=== PATIENT | female | born 1960 | race Caucasian/White ===

== ENCOUNTER → 2020-04-16 10:08 | Outpatient (BNVA) | payer OTHER, MEDICAID, SELFPAY | PROVIDERS: PCP Internal Medicine; Referring Provider Internal Medicine; Visit Provider Surgery | DX: D05.12 Intraductal carcinoma in situ of left breast (principal); Z92.3 Personal history of irradiation | CPT/HCPCS: 99213 ==

== ENCOUNTER → 2020-07-23 09:33 | Outpatient (BNVA) | payer OTHER, SELFPAY | PROVIDERS: PCP Internal Medicine; Visit Provider Advanced Practice Midwife | DX: Z76.89 Persons encountering health services in other specified circumstances (principal) ==

== ENCOUNTER 2020-08-11 12:28 | Outpatient (REF) | payer OTHER, SELFPAY ==
--- NOTE | 2020-08-11 12:36 | MM_ITS ---
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 COMPARISON: Mammography: July 12, 2019 and studies dating back to May 16, 2011 TECHNIQUE: Digital mammography is performed in craniocaudal and mediolateral oblique views along with computer-aided detection (CAD). Additional spot magnification views of the left breast in craniocaudal and 90 degree mediolateral views performed. FINDINGS: The breasts are heterogeneously dense, which may obscure small masses (ACR BI-RADS breast composition Category c). Architecture distortion related to surgery in the upper outer aspect of the left breast is seen. There are also noted to be some residual calcifications within the surgical bed. No new abnormal dominant mass is appreciated. Grouping of calcifications upper outer aspect of the right breast are stable. Results are discussed with the patient at time of visit. Dr. Cintron spoken to about the above findings. MM/MM diagnostic mammo BI IMPRESSION: Stable right breast calcifications. Some residual calcifications within the left breast surgical bed upper outer aspect. ASSESSMENT: BI-RADS 0: Incomplete -surgical consultation for residual calcifications in surgical bed. RECOMMENDATION: Surgical consultation
== END 2020-08-11 12:29 | disposition home or self-care (01) ==
LOC: HO.MAMMO 12:28
PROVIDERS: PCP Internal Medicine; Visit Provider Surgery
DX: D05.12 Intraductal carcinoma in situ of left breast (principal); Z92.3 Personal history of irradiation
CPT/HCPCS: 77066

== ENCOUNTER → 2020-10-20 14:32 | Outpatient (BNVA) | payer OTHER, SELFPAY | PROVIDERS: PCP Internal Medicine; Visit Provider Surgery | DX: D05.12 Intraductal carcinoma in situ of left breast (principal) | CPT/HCPCS: 99212 ==

== ENCOUNTER 2021-01-08 12:49 | Outpatient (REF) | payer OTHER, SELFPAY ==
--- NOTE | ~2021-01-08 | MM_ITS ---
EXAMINATION: MM DIAGNOSTIC DIGITAL BREAST TOMOSYNTHESIS, LEFT CLINICAL INFORMATION: Intraductal carcinoma left breast, status post lumpectomy COMPARISON: Mammography: August 11, 2020 and studies dating back to September 13, 2013 TECHNIQUE: Digital breast tomosynthesis is performed in both the craniocaudal and mediolateral oblique views along with computer-aided detection (CAD). Synthesized 2D images are generated from the tomosynthesis. Additional spot magnification views of the left breast in craniocaudal and 90 degree mediolateral views performed. FINDINGS: The breasts are heterogeneously dense, which may obscure small masses (ACR BI-RADS breast composition Category c). There are no new significant masses, abnormal calcifications, or other abnormalities. There is postsurgical scarring noted within the upper outer aspect of the left breast as well as stable calcifications. Results are provided to the patient at time of visit by the technologist. MM/MM tomosynthesis diagnostic LT IMPRESSION: There are no significant changes from prior study. ASSESSMENT: BI-RADS 2: Benign RECOMMENDATION: Diagnostic bilateral mammography in 6 months. This patient's information was entered into a reminder system with a target due date for their next mammogram.
== END 2021-01-08 12:50 | disposition home or self-care (01) ==
LOC: HO.MAMMO 12:49
PROVIDERS: PCP Internal Medicine; Visit Provider Internal Medicine
DX: R92.1 Mammographic calcification found on diagnostic imaging of breast (principal)
CPT/HCPCS: 77061; 77065

== ENCOUNTER → 2021-02-23 14:27 | Outpatient (BNVA) | payer OTHER, SELFPAY | PROVIDERS: PCP Internal Medicine; Visit Provider Surgery | DX: D05.12 Intraductal carcinoma in situ of left breast (principal) | CPT/HCPCS: 99212 ==

== ENCOUNTER 2021-06-05 18:48 | Emergency (ER) | payer OTHER, SELFPAY ==
--- NOTE | ~2021-06-05 | CT_ITS ---
EXAMINATION: CT ABDOMEN AND PELVIS WITH CONTRAST CLINICAL INFORMATION: Upper back and flank pain. COMPARISON: Pelvic ultrasound dated 11/08/2012. TECHNIQUE: Multidetector volumetric images were obtained from the superior aspect of the liver through the pubic symphysis following administration 85 mL of Omnipaque 350 intravenous contrast. Sagittal and coronal reformatted images were obtained on the technologist's workstation. Oral Contrast: No. This CT examination was performed using dose optimization techniques as appropriate, variously including the following: *Automated exposure control. *Adjustment of mA and/or kV according to patient size (this includes techniques or standardized protocols for targeted exams where dose is matched to indication/reason for exam; i.e. extremities or head). *Use of iterative reconstruction technique. DLP: 518 mGy-cm FINDINGS: LUNG BASES: The visualized lung bases are unremarkable. LIVER, GALLBLADDER, AND BILIARY TREE: The liver is normal in size, shape, and attenuation. No focal hepatic lesion or biliary ductal dilatation is present. The gallbladder is unremarkable with no evidence of radiopaque gallstones, gallbladder wall thickening, or obvious pericholecystic inflammatory changes. PANCREAS: Unremarkable. SPLEEN: Unremarkable. ADRENAL GLANDS: Unremarkable. KIDNEYS AND URETERS: The kidneys are normal in size and attenuation. Foci of cortical thinning within the left upper pole, consistent with scarring. Left midpole 0.1 cm nonobstructing renal stone. No additional renal or ureteral stone. No hydronephrosis or hydroureter. BLADDER: Nondistended and unremarkable. GASTROINTESTINAL TRACT: Sigmoid diverticulosis without evidence of acute diverticulitis. No bowel wall thickening or associated inflammatory change. No small or large bowel obstruction. Unremarkable appendix. PERITONEAL CAVITY: No intra-abdominal free air or free fluid. No intra-abdominal mass or organized fluid collection/abscess formation. ABDOMINAL WALL: No significant hernia is appreciated. LYMPH NODES: Normal. VASCULAR: No abdominal aortic dilatation or dissection. Atherosclerotic calcifications. PELVIC VISCERA: The uterus and adnexa are unremarkable. OSSEOUS STRUCTURES: Unremarkable. CT/CT abdomen pelvis w con IMPRESSION: 1. Nonobstructing 0.1 cm left midpole renal stone. No additional renal or ureteral stone. No hydronephrosis or hydroureter. Cortical thinning within the upper pole of the left kidney, consistent with parenchymal scarring. Unremarkable urinary bladder. 2. Diverticulosis without evidence of acute diverticulitis. No small or large bowel obstruction. Unremarkable appendix. 3. No intra-abdominal mass, lymphadenopathy, or ascites. Fleischner guidelines were followed.
[2021-06-05 19:07] VITALS: BP 150/91; PULSE 93; RESP 15; TEMP 36.7; O2SAT 93; BMI 26.5
--- NOTE | 2021-06-05 20:32 | ED.BACK ---
HPI - Back Pain/Injury General Chief Complaint: Back Pain/Injury Stated Complaint: back/shoulder pain Source: patient Mode of arrival: ambulatory Limitations: no limitations History of Present Illness HPI Narrative: 60-year-old female presents with 2 days of left upper back pain radiating down to her flank. States that she is in a 9/10 pain, pain is worse taking deep breath and when sitting up. She cannot lay on her left side. Did take some Tylenol and Motrin with poor effect. She was able to eat over the past days however today the pain was so severe that she could not tolerate any movement. She does have a rash to the left flank that she noted late last night and early this morning. Pertinent past history: cancer Onset (ago): day(s) (2) Timing: constant Severity: severe Pain scale (0-10): 9 Similar Symptoms Previously: No Quality: burning and stabbing Location: left flank and left upper back Radiation: none Exacerbating factors: movement and deep breaths Associated symptoms: fatigue Treatments prior to arrival: NSAIDS and acetaminophen Work related injury: No Related Data Home Medications Medication Instructions Recorded Confirmed atorvastatin 20 mg tablet 20 mg PO DAILY 04/16/20 10/20/20 clonazepam 0.5 mg tablet 0.5 mg PO DAILY PRN 04/16/20 10/20/20 naproxen 500 mg tablet 500 mg PO BID 04/16/20 10/20/20 sertraline 100 mg tablet 150 mg PO DAILY 04/16/20 10/20/20 trazodone 100 mg tablet [id number] mg PO BEDTIME PRN 04/16/20 10/20/20 Previous Rx's Medication Instructions Recorded ondansetron HCl 4 mg tablet 4 mg PO Q8H PRN #14 tab 06/05/21 (Zofran) oxycodone 5 mg tablet 5 mg PO Q6H PRN #14 tab 06/05/21 tamsulosin 0.4 mg capsule (Flomax) 0.4 mg PO DAILY #14 cap 06/05/21 valacyclovir 1 gram tablet 1,000 mg PO TID 7 Days #21 tab 06/05/21 Allergies Allergy/AdvReac Type Severity Reaction Status Date / Time codeine [CODEINE] Allergy Unknown NAUSEA & Verified 06/05/21 19:13 VOMITING erythromycin base Allergy Unknown NAUSEA & Verified 06/05/21 19:13 [ERYTHROMYCIN BASE] VOMITING Sulfa (Sulfonamide Allergy Unknown HIVES Verified 06/05/21 19:13 Antibiotics) [SULFA (SULFONAMIDE ANTIBIOTICS)] Codeine Allergy Unknown Unknown Uncoded 06/05/21 19:13 Sulfa Allergy Unknown Unknown Uncoded 06/05/21 19:13 sulfa Allergy Unknown hives Uncoded 06/05/21 19:13 codeine AdvReac Unknown nausea/vomi Uncoded 06/05/21 19:13 ting erythromycin AdvReac Unknown nausea/vomi Uncoded 06/05/21 19:13 ting Review of Systems Review of Systems: Constitutional: No Weight loss, No Fever, No Chills, ENT/Mouth: No Hearing loss, No Ear Pain, No Nasal Congestion, No Sinus Pain, No Hoarseness, No sore throat, No Rhinorrhea, No Swallowing Difficulty Cardiovascular: No Chest Pain, No SOB Respiratory: No Cough, No Dyspnea Gastrointestinal: No Nausea, No Vomiting, No Diarrhea, No abdominal Pain, No Hematochezia, No Melena Genitourinary: No Dysuria, No Urinary Frequency, No Hematuria, No Urinary Incontinence, Musculoskeletal: positive back pain Skin: No Skin Lesions, positive rash Neuro: No Weakness, No Numbness, No Paresthesias, no loss of bowel or bladder incontinence, no saddle anesthesia Yes all other systems are reviewed and are negative PMFSH Past Medical History Attestation statement: The following information was validated with the patient. Source: old records reviewed Medical History COPD (chronic obstructive pulmonary disease) Depression Ductal carcinoma in situ (DCIS) of left breast Hypercholesterolemia Surgical History History of lumpectomy of left breast Status post laparoscopic Shireen fundoplication (~08/2009) Family History Family History Mother History of breast cancer Brother Sweat gland carcinoma Social History Social History Alcohol intake: current Advance Directives: No Patient : No Physical Exam Vital Signs: Vital Signs: Last Vital Signs Temp 98.1 F 06/05/21 23:08 Pulse 79 06/05/21 23:08 Resp 18 11/27/21 23:08 BP 149/68 H 06/05/21 23:08 Pulse Ox 97 06/05/21 23:08 Body Mass Index 26.5 Appearance: Alert. Oriented X3. Moderate distress. Head: Normal external exam. Normocephalic. Atraumatic. No Pinto signs noted. No raccoon eyes noted Eyes: PERRLA. EOMI. Conjunctiva and sclera normal. Eyelids normal. ENT: TM's Normal. Pharynx normal. Uvula midline. Moist mucous membranes. No trismus noted. No drooling noted. No muffled voice noted. Neck: Normal inspection. Neck supple. No adenopathy. No meningeal signs. No neck mass noted. No vertebral tenderness or step-offs. CVS: Normal heart rate and rhythm. Heart sound normal. No murmurs noted. Pulses equal to all extremities. Respiratory: No respiratory distress. Pain increases on inspiration. Breath sounds normal. No wheezes/rales/rhonchi noted. Chest tender to left side. No accessory muscle usage noted or decreased air movement noted. Abdomen: Soft and nontender. Bowel sounds normal in all 4 quadrants. No distention noted. No organomegaly noted. No visible injury noted. Back: No CVA tenderness. Full range of motion noted. Skin: Skin warm and dry. Normal skin color. Normal skin turgor. Vesicular left-sided rash from spine to abdomen, does not cross the midline consistent with shingles. Extremities: No lower extremity edema. Extremities exhibit normal range of motion. Extremities nontender. Neuro: cranial nerves 2-12 intact, no focal neural deficits, strength 5/5 to all extremities, No motor deficit. No sensory deficit. Course Course Course Narrative: 60-year-old female presents with left-sided upper back and flank pain. Does have a vesicular rash that does not cross the midline from spine to the abdomen. Rash is consistent with shingles. Patient does have a history of breast cancer, will order labs and imaging. Rule out cholecystitis, ACS, acute abdomen, pyelo. Will treat for shingles with Grace close air, pain management morphine and will give L of fluid as patient was unable to tolerate p.o. fluids today. CT scan indicative of nonobstructing renal stone. Plan of care is to discharge home with Flomax. For shingles will give they will seek of air and oxycodone. Patient understands that she must follow-up with primary care physician and Urology as needed. Patient verbalized understanding of and agrees to plan of care discharge home. MDM - Back Pain/Injury MDM Narrative Medical decision making narrative: Cholecystitis, shingles Differential Diagnosis Differential diagnosis: Likely renal colic, pyelonephritis and AAA Medical Records Attestation: I reviewed the patient's medical records. Lab Data Attestation: I reviewed the patient's lab results. Result diagrams: 06/05/21 21:08 06/05/21 21:40 Labs: Lab Results 06/05/21 06/05/21 06/05/21 Range/Units 21:04 21:08 21:40 WBC 4.3 L (4.8-10.8) X10*3/uL RBC 3.58 L (4.20-5.50) X10*6/uL Hgb 12.2 (12.0-16.0) g/dl Hct 35.0 L (37.0-47.0) % MCV 97.8 (80.0-98.0) fL MCH 34.1 H (27.0-33.0) pg MCHC 34.9 (31.0-35.0) g/dl RDW 12.0 (11.0-16.0) % Plt Count 87 L (160-400) X10*3/uL MPV 9.1 L (9.4-12.3) fL Immature Gran % (Auto) 0.7 H (0.0-0.4) % Neut % (Auto) 77.9 H (45-73) % Lymph % (Auto) 8.8 L (20-40) % [place] % (Auto) 10.7 (2-11) % Eos % (Auto) 1.4 (0-4) % Baso % (Auto) 0.5 (0-2) % Lymph # (Auto) 0.4 L (1.2-4.9) X10*3/uL [place] # (Auto) 0.5 (0.1-1.2) X10*3/uL Eos # (Auto) 0.1 (0.0-0.4) X10*3/uL Baso # (Auto) 0.0 (0.0-0.2) X10*3/uL Abs Immat Gran (auto) 0.03 (0.00-0.03) X10*3/uL Absolute Neuts (auto) 3.4 (2.0-8.3) x10*3/uL Absolute Nucleated RBC 0.000 (0.0-0.012) X10*3/uL Nucleated RBC % (auto) 0.0 (0.0-0.2) /100WBC Sodium 138 (135-145) mmol/L Potassium 4.0 (3.3-5.1) mmol/L Chloride 105 (96-108) mmol/L Carbon Dioxide 25 (22-29) mmol/L Anion Gap 12 (12-20) BUN 9 (9-16) mg/dL Creatinine 0.89 (0.5-1.4) mg/dL Estim Creat Clear Calc 61.3 Estimated GFR > 60 Random Glucose 123 H (60-115) mg/dL Calcium 9.0 (8.4-10.2) mg/dL Total Bilirubin 0.8 (0.0-1.0) mg/dL Direct Bilirubin 0.4 (0.0-0.5) mg/dL AST 64 H (5-31) U/L ALT 64 H (0-31) U/L Alkaline Phosphatase 63 (39-117) U/L Total Protein 7.1 (6.5-8.0) g/dL Albumin 4.0 (3.5-5.0) g/dL Lipase 24 (8-78) U/L Urine Color YELLOW Urine Appearance CLEAR Urine pH 6.5 (5.0-8.0) Ur Specific Arnold 1.010 (1.005-1.025) Urine Protein NEG (NEG-TRACE) MG/DL Urine Glucose (UA) NEG (NEG) MG/DL Urine Ketones NEG (NEG) MG/DL Urine Blood TRACE (NEG) Urine Nitrite NEG (NEG) Ur Leukocyte Esterase NEG (NEG) Urine RBC 0 (0) /HPF Urine WBC 0 (0-4) /HPF Ur Squamous Epith Cells NONE /LPF Urine Bacteria NONE /LPF Imaging Data CT abdomen pelvis: Attestation: I personally reviewed and interpreted this imaging study as follows: Radiologist's impression: EXAMINATION: CT ABDOMEN AND PELVIS WITH CONTRAST? CLINICAL INFORMATION: Upper back and flank pain.? COMPARISON: Pelvic ultrasound dated 11/08/2012.? TECHNIQUE: Multidetector volumetric images were obtained from the superior aspect of the liver through the pubic symphysis following administration 85 mL of Omnipaque 350 intravenous contrast. Sagittal and coronal reformatted images were obtained on the technologist's workstation.? Oral Contrast: No. This CT examination was performed using dose optimization techniques as appropriate, variously including the following: *Automated exposure control. *Adjustment of mA and/or kV according to patient size (this includes techniques or standardized protocols for targeted exams where dose is matched to indication/reason for exam; i.e. extremities or head). *Use of iterative reconstruction technique. DLP: 518 mGy-cm FINDINGS: LUNG BASES: The visualized lung bases are unremarkable.? LIVER, GALLBLADDER, AND BILIARY TREE: The liver is normal in size, shape, and attenuation. No focal hepatic lesion or biliary ductal dilatation is present. The gallbladder is unremarkable with no evidence of radiopaque gallstones, gallbladder wall thickening, or obvious pericholecystic inflammatory changes.? PANCREAS: Unremarkable.? SPLEEN: Unremarkable.? ADRENAL GLANDS: Unremarkable.? KIDNEYS AND URETERS: The kidneys are normal in size and attenuation. Foci of cortical thinning within the left upper pole, consistent with scarring. Left midpole 0.1 cm nonobstructing renal stone. No additional renal or ureteral stone. No hydronephrosis or hydroureter. ? BLADDER: Nondistended and unremarkable.? GASTROINTESTINAL TRACT: Sigmoid diverticulosis without evidence of acute diverticulitis. No bowel wall thickening or associated inflammatory change. No small or large bowel obstruction. Unremarkable appendix. PERITONEAL CAVITY: No intra-abdominal free air or free fluid. No intra-abdominal mass or organized fluid collection/abscess formation. ABDOMINAL WALL: No significant hernia is appreciated.? LYMPH NODES: Normal. VASCULAR: No abdominal aortic dilatation or dissection. Atherosclerotic calcifications. PELVIC VISCERA: The uterus and adnexa are unremarkable.? OSSEOUS STRUCTURES: Unremarkable.? CT/CT abdomen pelvis w con IMPRESSION: 1. Nonobstructing 0.1 cm left midpole renal stone. No additional renal or ureteral stone. No hydronephrosis or hydroureter. Cortical thinning within the upper pole of the left kidney, consistent with parenchymal scarring. Unremarkable urinary bladder. ? 2. Diverticulosis without evidence of acute diverticulitis. No small or large bowel obstruction. Unremarkable appendix. ? 3. No intra-abdominal mass, lymphadenopathy, or ascites.? ? Fleischner guidelines were followed. ECG Data Attestation: I personally reviewed and interpreted this ECG as follows: ECG interpretation date: 06/05/21 ECG interpretation time: 20:46 Prior ECG tracings: not available for review Interpretation: Vent. Rate : 072 BPM ? ? Atrial Rate : 072 BPM ?? P-R Int : 128 ms? QRS Dur : 066 ms ? ? QT Int : 392 ms ? ? ? P-R-T Axes : 013 007 035 degrees ?? QTc Int : 429 ms ? Normal sinus rhythm Normal ECG No previous ECGs available Discharge Plan Discharge Clinical Impression: Shingles, Kidney stone Patient Disposition: Home, Self-Care Instructions: Kidney Stones (ED), Shingles (ED) Additional Instructions: You were evaluated for left upper back and flank pain. Your CT scan of abdomen and pelvis indicates a nonobstructing kidney stone. I prescribed Flomax. Please take this medication in the morning for the next 14 days. You may consider following up with Nephrology and primary care physician Physical exam indicates a rash consistent with shingles. Please take valacyclovir 1000 mg 3 times a day. Please do not come into contact with any person or planning to become until rash resolves. I prescribed oxycodone for pain management. This medication is a narcotic and has high risk for addiction and abuse. Do not drive or operate machinery while taking this medication this medication is also constipating. Please drink plenty of fluids and consider taking MiraLax and or Colace as needed for stool softening. Thank you for choosing this emergency department for evaluation. Please follow-up with primary care physician as needed. Return to the emergency department for any new, concerning, or worsening symptoms. Prescriptions: New valacyclovir 1 gram tablet 1,000 mg PO TID 7 Days Qty: 21 RF: 0 oxycodone 5 mg tablet 5 mg PO Q6H PRN (Reason: pain) Qty: 14 RF: 0 ondansetron HCl [Zofran] 4 mg tablet 4 mg PO Q8H PRN (Reason: nausea and vomiting) Qty: 14 RF: 0 tamsulosin [Flomax] 0.4 mg capsule 0.4 mg PO DAILY Qty: 14 RF: 0 No Action trazodone 100 mg tablet [id number] mg PO BEDTIME PRNRF: 0 sertraline 100 mg tablet 150 mg PO DAILY RF: 0 atorvastatin 20 mg tablet 20 mg PO DAILY RF: 0 clonazepam 0.5 mg tablet 0.5 mg PO DAILY PRNRF: 0 naproxen 500 mg tablet 500 mg PO BID RF: 0 Referrals: Pierre Mcfarlane MD [Physician] - 2 days (Nonobstructing renal stone) Stand Alone Forms: Work/School Release Interventions: ED Discharge Assessment Last Done: 06/05/21 23:59 Discharge Date/Time: 06/05/21 23:59
--- NOTE | 2021-06-05 20:46 | ECG_ITS ---
Test Reason : BACK PAIN Blood Pressure : / mmHG Vent. Rate : 072 BPM Atrial Rate : 072 BPM P-R Int : 128 ms QRS Dur : 066 ms QT Int : 392 ms P-R-T Axes : 013 007 035 degrees QTc Int : 429 ms Normal sinus rhythm Normal ECG No previous ECGs available Referred By: Lorenza Fuller Electronically Signed By:KENNETH MURCIA MD
[2021-06-05] MEDS: 0.9 % Sodium Chloride 1,000 ML 999 ML IVCONT (21:11)
[2021-06-05] MEDS: Morphine Sulfate 4 MG/ML CARTRIDGE IVPUSH (21:11)
[2021-06-05] MEDS: ondansetron HCL 4 MG/2 ML VIAL IVPUSH (21:11)
[2021-06-05 21:12] LABS: MANUAL DIFF FLAG NO
[2021-06-05 21:19] LABS: Basophils Percent Auto 0.5 % (0-2); Eosinophils Absolute Auto 0.1 X10*3/uL (0.0-0.4); Eosinophils Percent Auto 1.4 % (0-4); Hemoglobin 12.2 g/dl (12.0-16.0); Imm Gran Abs Auto 0.03 X10*3/uL (0.00-0.03); Imm Gran Pct Auto 0.7 % (0.0-0.4); Lymphocytes Absolute Auto 0.4 X10*3/uL (1.2-4.9); Lymphocytes Percent Auto 8.8 % (20-40); Mean Corpuscular HGB Conc 34.9 g/dl (31.0-35.0); Mean Corpuscular Hemoglobin 34.1 pg (27.0-33.0); Mean Corpuscular Volume 97.8 fL (80.0-98.0); Mean Platelet Volume 9.1 fL (9.4-12.3); Monocytes Absolute Auto 0.5 X10*3/uL (0.1-1.2); Monocytes Percent Auto 10.7 % (2-11); Neutrophils Absolute Auto 3.4 x10*3/uL (2.0-8.3); Neutrophils Percent Auto 77.9 % (45-73); Platelet Count 87 X10*3/uL (160-400); Red Blood Count 3.58 X10*6/uL (4.20-5.50); White Blood Count 4.3 X10*3/uL (4.8-10.8)
[2021-06-05 21:19] LABS: Appearance Urine CLEAR; Color Urine YELLOW; Glucose Urine UA NEG (NEG); Leukocyte Esterase Urine NEG (NEG); Nitrite Urine NEG (NEG); PH 6.5 (5.0-8.0); UACC Culture Trigger NO; Urine Blood TRACE (NEG); Urine Ketones NEG (NEG); Urine Protein NEG (NEG-TRACE)
[2021-06-05 21:32] LABS: RBC Urine 0 /HPF (0); WBC Urine 0 /HPF (0-4)
[2021-06-05 22:08] LABS: Alanine Aminotransferase 64 U/L (0-31); Alkaline Phosphatase 63 U/L (39-117); Anion Gap 12 (12-20); Aspartate Amino Transferase 64 U/L (5-31); Bilirubin Direct 0.4 mg/dL (0.0-0.5); Bilirubin Total 0.8 mg/dL (0.0-1.0); Blood Urea Nitrogen 9 mg/dL (9-16); Carbon Dioxide 25 mmol/L (22-29); Chloride 105 mmol/L (96-108); Creatinine Clr Calc Pharmacy 61.3; Estimated Glomerular Filt Rate > 60; Glucose Random 123 mg/dL (60-115); Lipase 24 U/L (8-78); Sodium 138 mmol/L (135-145); Total Protein 7.1 g/dL (6.5-8.0)
[2021-06-05] MEDS: iohexoL 350 MG/ML 100 ML INFUS..BTL IV (22:41)
[2021-06-05 23:08] VITALS: BP 149/68; PULSE 79; RESP 18; TEMP 36.7; O2SAT 97
[2021-06-05] MEDS: Tamsulosin HCL 0.4 MG CAPSULE PO (23:54)
[2021-06-05] MEDS: oxyCODONE HCl Immed Release 5 MG TABLET 10 MG PO (23:54)
== END 2021-06-05 23:59 | disposition home or self-care (01) ==
PROVIDERS: Nurse Practitioner Family; Emergency Provider Internal Medicine; PCP Internal Medicine
DX: N20.0 Calculus of kidney (principal); B02.9 Zoster without complications; Z85.3 Personal history of malignant neoplasm of breast
CPT/HCPCS: 36415; 74177; 80048; 80076; 81001; 83690; 85025; 93005; 96361; 96374; 96375; 99284; J2270; J2405; Q9967

== ENCOUNTER → 2021-08-26 14:07 | Outpatient (BNVA) | payer OTHER, SELFPAY | PROVIDERS: PCP Internal Medicine; Referring Provider Internal Medicine; Visit Provider Surgery | DX: Z86.000 Personal history of in-situ neoplasm of breast (principal); K42.9 Umbilical hernia without obstruction or gangrene; Z92.3 Personal history of irradiation | CPT/HCPCS: 99212 ==

== ENCOUNTER 2021-09-08 12:25 | Outpatient (REF) | payer OTHER, SELFPAY ==
--- NOTE | ~2021-09-08 | MM_ITS ---
EXAMINATION: MM DIAGNOSTIC DIGITAL BREAST TOMOSYNTHESIS, BILATERAL CLINICAL INFORMATION: Left DCIS, lumpectomy 07/12/2019. Due for yearly. COMPARISON: Mammography: 01/08/2021, 08/11/2020, 07/12/2019, 06/21/2019, 06/11/2019, 05/01/2018 TECHNIQUE: Digital breast tomosynthesis is performed in both the craniocaudal and mediolateral oblique views along with computer-aided detection (CAD). Synthesized 2D images are generated from the tomosynthesis. Additional magnification left CC and magnification left ML views are obtained. FINDINGS: The breasts are heterogeneously dense, which may obscure small masses (ACR BI-RADS breast composition Category c). There is a fibronodular parenchymal pattern similar to prior exams. There is no interval mass or developing density or interval architectural abnormality. Postsurgical changes again noted upper outer left breast with mild scarring and reduced breast size. Scattered bilateral isolated and some small grouped calcifications are similar to prior studies. There is a biopsy clip marker again seen right breast central 1:00 position. There are no significant changes. Results are discussed with the patient at time of visit. MM/MM tomosynthesis diagnostic BI IMPRESSION: No mammographic evidence of malignancy. ASSESSMENT: BI-RADS 2: Benign RECOMMENDATION: Annual bilateral mammography. This patient's information was entered into a reminder system with a target due date for their next mammogram.
== END 2021-09-08 12:26 | disposition home or self-care (01) ==
LOC: HO.MAMMO 12:25
PROVIDERS: PCP Internal Medicine; Visit Provider Internal Medicine
DX: R92.1 Mammographic calcification found on diagnostic imaging of breast (principal)
CPT/HCPCS: 77062; 77066

== ENCOUNTER 2021-10-12 10:47 | Outpatient (REF) | payer OTHER, SELFPAY ==
[2021-10-14 17:01] LABS: HPV mRNA E6/E7 rflx Not Detected (Not Detected)
== END 2021-10-12 10:48 | disposition home or self-care (01) ==
LOC: HO.LAB 10:47
PROVIDERS: PCP Internal Medicine; Visit Provider Advanced Practice Midwife
DX: Z01.419 Encounter for gynecological examination (general) (routine) without abnormal findings (principal)
CPT/HCPCS: 87624; 88142

== ENCOUNTER → 2022-03-17 10:57 | Outpatient (BNVA) | payer OTHER, SELFPAY | PROVIDERS: PCP Internal Medicine; Visit Provider Surgery | DX: Z86.000 Personal history of in-situ neoplasm of breast (principal); Z92.3 Personal history of irradiation | CPT/HCPCS: 99212 ==

== ENCOUNTER 2022-11-14 15:08 | Outpatient (REF) | payer OTHER, SELFPAY ==
--- NOTE | ~2022-11-14 | MM_ITS ---
EXAMINATION: MM DIAGNOSTIC DIGITAL BREAST TOMOSYNTHESIS, BILATERAL CLINICAL INFORMATION: Left DCIS status post lumpectomy 07/12/2019 and reexcision 10/09/2019. RT completed at [facility] 01/16/2020. Due for yearly. COMPARISON: Multiple prior exams including most recent, 09/08/2021. TECHNIQUE: Digital breast tomosynthesis is performed in both the craniocaudal and mediolateral oblique views along with computer-aided detection (CAD). Synthesized 2D images are generated from the tomosynthesis. Additional magnification left CC and magnification left ML views are obtained. FINDINGS: The breasts are heterogeneously dense, which may obscure small masses (ACR BI-RADS breast composition Category c). Parenchymal pattern is similar to prior studies and there is no developing density or interval mass or architectural abnormality or abnormal calcifications. There is a biopsy clip marker central anterior 1:00 right breast. Scattered right breast calcifications are stable. Left breast has post therapy changes with minor scarring. The left breast calcifications are similar in number and distribution to prior diagnostic exams. The bilateral axilla and skin contours are unremarkable. No significant changes. Results are provided to the patient at time of visit by the technologist. MM/MM tomosynthesis diagnostic BI IMPRESSION: -No mammographic evidence of malignancy. -Post therapy changes left breast. ASSESSMENT: BI-RADS 2: Benign RECOMMENDATION: Routine annual mammography screening. This patient's information was entered into a reminder system with a target due date for their next mammogram.
== END 2022-11-14 15:09 | disposition home or self-care (01) ==
LOC: HO.MAMMO 15:08
PROVIDERS: Visit Provider Internal Medicine
DX: R92.1 Mammographic calcification found on diagnostic imaging of breast (principal)
CPT/HCPCS: 77062; 77066

== ENCOUNTER 2023-03-16 09:50 | Outpatient (AMB) | payer OTHER, SELFPAY ==
--- NOTE | 2023-03-16 10:02 | MHC.OFFVIS ---
Intake Vital Signs 03/16/23 10:15 Height 5 ft 2 in Weight 150 lb BMI 27.4 BP 145/69 H Blood Pressure Location Rt brachial Position Sitting Pulse 82 Intake Visit Reasons: yearly breast exam Intake Note: Patient here for yrly breast exam. Reports no changes in medical hx or medications. Denies pain, itch on breasts. C/o umbilical hernia. More noticeable when laying down. Denies pain. 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 Accompanied by: Spouse Allergies codeine [CODEINE] Allergy (Unknown, Verified 03/16/23 10:17) NAUSEA & VOMITING erythromycin base [ERYTHROMYCIN BASE] Allergy (Unknown, Verified 03/16/23 10:17) NAUSEA & VOMITING Sulfa (Sulfonamide Antibiotics) [SULFA (SULFONAMIDE ANTIBIOTICS)] Allergy (Unknown, Verified 03/16/23 10:17) HIVES Medication List - Last Reviewed 03/16/23 by PAULA Santana atorvastatin 20 mg PO DAILY naproxen 500 mg PO BID sertraline 150 mg PO DAILY trazodone [id number] mg PO BEDTIME PRN HPI HPI Comments History of Present Illness Details 62-year-old female patient returning for a yearly breast examination.? She was previously treated by Dr. 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 She underwent a needle localized lumpectomy and sentinel node biopsy of the left side on 07/12/2019.? Pathology revealed ductal carcinoma in-situ, ER/OR negative with positive margins.? She underwent a wider excision on 10/09/2019 which revealed no residual tumor.? She subsequently underwent radiation therapy at [facility].? Her most recent mammogram of 11/14/2022 revealed no mammographic evidence of malignancy (BI-RADS 2).? Yearly mammogram is recommended.? She denies any new breast symptoms and generally feels well.? She does complain of an umbilical hernia. [facility] History History of radiation therapy Ductal carcinoma in situ (DCIS) of left breast Depression Hypercholesterolemia COPD (chronic obstructive pulmonary disease) Surgical History History of lumpectomy of left breast Status post laparoscopic Shireen fundoplication (~08/2009) Family History Mother History of breast cancer Brother Sweat gland carcinoma Social History Alcohol intake: current Patient Tobacco Use Status: Never used Tobacco Review of Systems Const All systems reviewed & are unremarkable except as noted in HPI and below Physical Exam Const General: comfortable, no acute distress and alert Neck Neck: Yes normal visual inspection, Yes trachea midline and Yes supple Lymphatic: no lymphadenopathy noted Chest Other: Left breast with a well-healed incision in the 3 o'clock position which is clean, dry, and intact. No palpable masses appreciated in the entire left breast. Axillary lymph nodes are not palpable. Right breast with no skin change, no nipple discharge, no palpable mass, no enlarged lymph nodes. Chest/axillae images: 1. Resp Effort & Inspection: normal respiratory effort Auscultation: clear to auscultation bilaterally GI Other: Diastasis recti noted. Small umbilical hernia noted just above the umbilicus, easily reducible with light pressure. Nontender to palpation. Inspection: Yes normal to inspection Skin Other: normal color, warm and dry Assessment & Plan Assessment & Plan (1) Ductal carcinoma in situ (DCIS) of left breast: Code(s): D05.12 - Intraductal carcinoma in situ of left breast Plan 62-year-old female patient presenting for follow-up breast examination after undergoing a left breast lumpectomy with needle localization for ductal carcinoma in situ. She underwent radiation therapy and tolerated this well. Her most recent mammogram of the left breast of 11/14/2022 revealed no mammographic evidence of malignancy (BI-RADS 2). Examination today revealed no new suspicious findings in either breast with no evidence of recurrence disease. I recommended follow-up examination in 1 year. She declined follow-up but agreed to yearly examination by her primary care physician. She should follow up as needed. Coding Level of Care Code Est Pt Level 3 (50493) Diagnoses Ductal carcinoma in situ (DCIS) of left breast D05.12
[2023-03-16 10:15] VITALS: BP 145/69; PULSE 82; BMI 27.4
== END 2023-03-16 10:28 | disposition home or self-care (01) ==
PROVIDERS: PCP Internal Medicine; Visit Provider Surgery
DX: D05.12 Intraductal carcinoma in situ of left breast (principal)
CPT/HCPCS: 99213

== ENCOUNTER → 2023-03-16 09:50 | Outpatient (BNVA) | payer OTHER, SELFPAY | PROVIDERS: Visit Provider Surgery | DX: D05.12 Intraductal carcinoma in situ of left breast (principal); Z17.1 Estrogen receptor negative status [ER-]; Z92.3 Personal history of irradiation | CPT/HCPCS: 99212 ==

== ENCOUNTER 2023-11-20 15:20 | Outpatient (REF) | payer OTHER, SELFPAY ==
--- NOTE | ~2023-11-20 | MM_ITS ---
EXAMINATION: MM SCREENING DIGITAL BREAST TOMOSYNTHESIS, BILATERAL CLINICAL INFORMATION: Screening. Asymptomatic. The patient is status post left breast surgery for DCIS in 2020. COMPARISON: Mammography: This study is compared with prior exams dating back to 2019. TECHNIQUE: Digital breast tomosynthesis is performed in both the craniocaudal and mediolateral oblique views along with computer-aided detection (CAD). Synthesized 2D images are generated from the tomosynthesis. FINDINGS: The breasts are heterogeneously dense, which may obscure small masses (ACR BI-RADS breast composition Category c). In the upper outer quadrant of the right breast, there are grouped calcifications which warrant additional mammographic imaging with magnification. There is a tissue marker in the right breast from prior benign percutaneous biopsy. In the left breast, there are no significant masses, abnormal calcifications, or other abnormalities. Postsurgical changes in the superior aspect of the left breast from prior surgery for DCIS. There are bilateral benign calcifications MM/MM tomosynthesis screening BI IMPRESSION: Calcifications in the upper outer quadrant of the right breast warrant additional mammographic imaging magnification. No mammographic signs of the left breast. Postsurgical changes left breast ASSESSMENT: BI-RADS BI-RADS 0 - Incomplete: Needs additional Imaging. RECOMMENDATION: Additional views of the right breast. Radiology department staff will contact the patient for additional imaging. Additional Imaging required This examination should not preclude the clinical evaluation of a suspicious palpable abnormality. This patient's information was entered into a reminder system with a target due date for their next mammogram.
== END 2023-11-20 15:21 | disposition home or self-care (01) ==
LOC: HO.MAMMO 15:20
PROVIDERS: PCP Internal Medicine; Visit Provider Internal Medicine
DX: Z12.31 Encounter for screening mammogram for malignant neoplasm of breast (principal)
CPT/HCPCS: 77063; 77067

== ENCOUNTER → 2023-11-20 15:30 | Outpatient (BNV) | payer OTHER, SELFPAY | PROVIDERS: PCP Internal Medicine; Visit Provider Radiology Diagnostic Radiology | DX: Z12.31 Encounter for screening mammogram for malignant neoplasm of breast (principal) | CPT/HCPCS: 77063; 77067 ==

== ENCOUNTER 2024-02-20 08:41 | Outpatient (REF) | payer OTHER, SELFPAY ==
--- NOTE | ~2024-02-20 | XR_ITS ---
EXAMINATION: XR lumbar spine 2-3V CLINICAL INFORMATION: LOW BACK PAIN COMPARISON: None TECHNIQUE: 3 views of the lumbar spine FINDINGS: 5 nonrib-bearing lumbar-type vertebral bodies. Vertebral body heights are maintained. Rightward scoliosis of the lumbar spine. Moderate multilevel degenerative disc disease with loss of disc space height, facet arthropathy and disc osteophyte complexes. This is worst at L3/L4. Atherosclerotic calcifications of the abdominal aorta. XR/XR lumbar spine 2-3V IMPRESSION: Moderate spondylosis of the lumbar spine, as above detailed. Electronically signed by: Johana Costa MD 03/19/2024 06:33 PM EDT
== END 2024-02-20 08:42 | disposition home or self-care (01) ==
LOC: HO.HMGCX 08:41
PROVIDERS: PCP Internal Medicine; Visit Provider Internal Medicine
DX: M54.50 Low back pain, unspecified (principal)
CPT/HCPCS: 72100

== ENCOUNTER 2024-02-27 13:53 | Outpatient (REF) | payer OTHER, SELFPAY ==
--- NOTE | ~2024-02-27 | US_ITS ---
EXAMINATION: MM DIAGNOSTIC DIGITAL BREAST TOMOSYNTHESIS, RIGHT US BREAST LIMITED, RIGHT MAMMOGRAPHY: CLINICAL INFORMATION: Callback from screening for right breast calcifications upper outer quadrant for further characterization. 63-year-old female, history of left DCIS status post lumpectomy 07/12/2019, and reexcision 10/09/2019. COMPARISON: Mammography: Screening examination 11/20/2023, and prior exams 11/14/2022, dating back to 2013. TECHNIQUE: Digital breast tomosynthesis is performed in the following views: 3-D Spot compression right CC and ML views, as well as 2-D spot magnification right CC x2, and ML views. Computer-aided diagnosis was used for this study. This was followed by targeted right breast ultrasound. FINDINGS: The breasts are heterogeneously dense, which may obscure small masses (ACR BI-RADS breast composition Category c). Diagnostic spot magnification views demonstrate scattered right breast calcifications in the upper quadrant, the majority being stable and unchanged when compared with 2019 magnification views. A small focus of slightly more pleomorphic calcifications has increased in the approximately 10:00 axis, and immediately posterior to this is a focus of architectural distortion which was evaluated with spot compression views. After spot compression views, this focus of architectural distortion persisted in both the CC and MLO views, and is suspicious. This will be evaluated with ultrasound. ULTRASOUND: CLINICAL INFORMATION: Evaluate focus of architectural distortion right breast 10:00 axis posterior one third. There are associated mildly pleomorphic calcifications immediately anterior to this. COMPARISON: No relevant prior. TECHNIQUE: Targeted sonographic evaluation right breast was performed using a high frequency linear transducer. Attention was given to the upper outer quadrant of the right breast, in the region of architectural distortion. Selected archived documentation. FINDINGS: RIGHT BREAST: In the 10:00 axis of the right breast, there is an irregular hypoechoic mass with indistinct margins, taller than wide, 10:00 axis right breast, 8 cm from the nipple, with posterior acoustic shadowing, scant internal color Doppler flow, a surrounding echogenic halo, measuring an estimated 0.6 x 0.6 x 0.6 cm. This correlates well with the architectural focus of distortion in the upper outer quadrant on mammography, and is a suspicious abnormality. Ultrasound-guided biopsy is recommended for further characterization. Scanning of the right axilla demonstrates no evidence of abnormal or pathologic lymph nodes. No additional suspicious findings present in the upper outer quadrant of the right breast.
--- NOTE | ~2024-02-27 | MM_ITS ---
EXAMINATION: MM DIAGNOSTIC DIGITAL BREAST TOMOSYNTHESIS, RIGHT US BREAST LIMITED, RIGHT MAMMOGRAPHY: CLINICAL INFORMATION: Callback from screening for right breast calcifications upper outer quadrant for further characterization. 63-year-old female, history of left DCIS status post lumpectomy 07/12/2019, and reexcision 10/09/2019. COMPARISON: Mammography: Screening examination 11/20/2023, and prior exams 11/14/2022, dating back to 2013. TECHNIQUE: Digital breast tomosynthesis is performed in the following views: 3-D Spot compression right CC and ML views, as well as 2-D spot magnification right CC x2, and ML views. Computer-aided diagnosis was used for this study. This was followed by targeted right breast ultrasound. FINDINGS: The breasts are heterogeneously dense, which may obscure small masses (ACR BI-RADS breast composition Category c). Diagnostic spot magnification views demonstrate scattered right breast calcifications in the upper quadrant, the majority being stable and unchanged when compared with 2019 magnification views. A small focus of slightly more pleomorphic calcifications has increased in the approximately 10:00 axis, and immediately posterior to this is a focus of architectural distortion which was evaluated with spot compression views. After spot compression views, this focus of architectural distortion persisted in both the CC and MLO views, and is suspicious. This will be evaluated with ultrasound. ULTRASOUND: CLINICAL INFORMATION: Evaluate focus of architectural distortion right breast 10:00 axis posterior one third. There are associated mildly pleomorphic calcifications immediately anterior to this. COMPARISON: No relevant prior. TECHNIQUE: Targeted sonographic evaluation right breast was performed using a high frequency linear transducer. Attention was given to the upper outer quadrant of the right breast, in the region of architectural distortion. Selected archived documentation. FINDINGS: RIGHT BREAST: In the 10:00 axis of the right breast, there is an irregular hypoechoic mass with indistinct margins, taller than wide, 10:00 axis right breast, 8 cm from the nipple, with posterior acoustic shadowing, scant internal color Doppler flow, a surrounding echogenic halo, measuring an estimated 0.6 x 0.6 x 0.6 cm. This correlates well with the architectural focus of distortion in the upper outer quadrant on mammography, and is a suspicious abnormality. Ultrasound-guided biopsy is recommended for further characterization. Scanning of the right axilla demonstrates no evidence of abnormal or pathologic lymph nodes. No additional suspicious findings present in the upper outer quadrant of the right breast. MM/MM added views RT IMPRESSION: 1. Suspicious hypoechoic indistinct mass as described in the right breast 10:00 axis, 8 cm from the nipple, correlating with an area of architectural distortion on mammography in the same region. Ultrasound-guided biopsy recommended for further characterization. 2. An area of mildly pleomorphic calcifications is present immediately anteroinferior to the area of architectural distortion, not previously present, is also somewhat suspicious. 3. Several groups of stable calcifications in the upper outer and upper inner right breast as well. Findings and recommendations were discussed with the patient by the technologist in detail. OVERALL ASSESSMENT: Mammography: BI-RADS 4 - Suspicious finding Ultrasound: BI-RADS 4 - Suspicious finding RECOMMENDATION: Biopsy recommended Electronically signed by: Trell Coulter MD 03/01/2024 11:45 AM EDT
== END 2024-02-27 13:54 | disposition home or self-care (01) ==
LOC: HO.MAMMO 13:53
PROVIDERS: PCP Internal Medicine; Visit Provider Internal Medicine
DX: R92.1 Mammographic calcification found on diagnostic imaging of breast (principal)
CPT/HCPCS: 77065

== ENCOUNTER → 2024-02-27 14:00 | Outpatient (BNV) | payer OTHER, SELFPAY | PROVIDERS: PCP Internal Medicine; Visit Provider Radiology Diagnostic Radiology | DX: R92.1 Mammographic calcification found on diagnostic imaging of breast (principal) | CPT/HCPCS: 77061; 77065 ==

== ENCOUNTER 2024-03-01 09:45 | Outpatient (REF) | payer OTHER, SELFPAY ==
--- NOTE | ~2024-03-01 | US_ITS ---
EXAMINATION: MM DIAGNOSTIC DIGITAL BREAST TOMOSYNTHESIS, RIGHT US BREAST LIMITED, RIGHT MAMMOGRAPHY: CLINICAL INFORMATION: Callback from screening for right breast calcifications upper outer quadrant for further characterization. 63-year-old female, history of left DCIS status post lumpectomy 07/12/2019, and reexcision 10/09/2019. COMPARISON: Mammography: Screening examination 11/20/2023, and prior exams 11/14/2022, dating back to 2013. TECHNIQUE: Digital breast tomosynthesis is performed in the following views: 3-D Spot compression right CC and ML views, as well as 2-D spot magnification right CC x2, and ML views. Computer-aided diagnosis was used for this study. This was followed by targeted right breast ultrasound. FINDINGS: The breasts are heterogeneously dense, which may obscure small masses (ACR BI-RADS breast composition Category c). Diagnostic spot magnification views demonstrate scattered right breast calcifications in the upper quadrant, the majority being stable and unchanged when compared with 2019 magnification views. A small focus of slightly more pleomorphic calcifications has increased in the approximately 10:00 axis, and immediately posterior to this is a focus of architectural distortion which was evaluated with spot compression views. After spot compression views, this focus of architectural distortion persisted in both the CC and MLO views, and is suspicious. This will be evaluated with ultrasound. ULTRASOUND: CLINICAL INFORMATION: Evaluate focus of architectural distortion right breast 10:00 axis posterior one third. There are associated mildly pleomorphic calcifications immediately anterior to this. COMPARISON: No relevant prior. TECHNIQUE: Targeted sonographic evaluation right breast was performed using a high frequency linear transducer. Attention was given to the upper outer quadrant of the right breast, in the region of architectural distortion. Selected archived documentation. FINDINGS: RIGHT BREAST: In the 10:00 axis of the right breast, there is an irregular hypoechoic mass with indistinct margins, taller than wide, 10:00 axis right breast, 8 cm from the nipple, with posterior acoustic shadowing, scant internal color Doppler flow, a surrounding echogenic halo, measuring an estimated 0.6 x 0.6 x 0.6 cm. This correlates well with the architectural focus of distortion in the upper outer quadrant on mammography, and is a suspicious abnormality. Ultrasound-guided biopsy is recommended for further characterization. Scanning of the right axilla demonstrates no evidence of abnormal or pathologic lymph nodes. No additional suspicious findings present in the upper outer quadrant of the right breast. US/US breast RT limited IMPRESSION: 1. Suspicious hypoechoic indistinct mass as described in the right breast 10:00 axis, 8 cm from the nipple, correlating with an area of architectural distortion on mammography in the same region. Ultrasound-guided biopsy recommended for further characterization. 2. An area of mildly pleomorphic calcifications is present immediately anteroinferior to the area of architectural distortion, not previously present, is also somewhat suspicious. 3. Several groups of stable calcifications in the upper outer and upper inner right breast as well. Findings and recommendations were discussed with the patient by the technologist in detail. OVERALL ASSESSMENT: Mammography: BI-RADS 4 - Suspicious finding Ultrasound: BI-RADS 4 - Suspicious finding RECOMMENDATION: Biopsy recommended Electronically signed by: Trell Coulter MD 03/01/2024 11:45 AM EDT
== END 2024-03-01 09:46 | disposition home or self-care (01) ==
LOC: HO.MAMMO 09:45
PROVIDERS: PCP Internal Medicine; Visit Provider Internal Medicine
DX: R92.1 Mammographic calcification found on diagnostic imaging of breast (principal)
CPT/HCPCS: 76642

== ENCOUNTER → 2024-03-01 09:45 | Outpatient (BNV) | payer OTHER, SELFPAY | PROVIDERS: PCP Internal Medicine; Visit Provider Radiology Diagnostic Radiology | DX: R92.1 Mammographic calcification found on diagnostic imaging of breast (principal) | CPT/HCPCS: 76642; 77061; 77065 ==

== ENCOUNTER 2024-03-08 11:28 | Outpatient (REF) | payer OTHER, SELFPAY ==
--- NOTE | ~2024-03-08 | MM_ITS ---
EXAMINATION: BONE DENSITOMETRY CLINICAL INDICATION: Menopause. COMPARISON: This is the patient's baseline examination. TECHNIQUE: Using a StepOne DXA System (software version: 13.1) manufactured by [employer], dual-energy x-ray absorptiometry was performed of the lumbar spine and left hip. The images are of good technical quality. Summary results are attached. FINDINGS: LEFT FEMUR, NECK: BMD 0.83 g/cm2, Z-score -0.2, T-score -1.4, osteopenia. LEFT FEMUR, TOTAL: BMD 1.038 g/cm2, Z-score 1.2, T-score 0.2, normal. AP SPINE L1-L4: BMD 1.373 g/cm2, Z-score 2.9, T-score 1.6, normal. IDENTIFIED RISK FACTORS: Menopause, history of fracture (adult), glucocorticoids (chronic). HISTORY OF FRACTURE: Other. MEDICATIONS: ERT/SERMS. MM/XR DEXA axial skeleton IMPRESSION: 1. DIAGNOSIS: Osteopenia based on the lowest T-score value of -1.4 in the femoral neck applying World Health Organization criteria. 2. 10-YEAR FRACTURE RISK PREDICTION, FRAX: Not performed in this patient on estrogen or bone building treatments. 3. Treatment Recommendations: NOF guidelines recommend consideration for treatment in postmenopausal women and men age 50 and older presenting with the following: -A hip or vertebral (clinical or morphometric) fracture. -T-score less than or equal to -2.5 at the femoral neck or spine after appropriate evaluation to exclude secondary causes. -Low bone mass at the hip or spine and a 10-year fracture probability by FRAX of greater than or equal to 3% for hip fracture or greater than or equal to 20% for major osteoporotic fracture based on the [place] adapted WHO algorithm. 4. Other Recommendations: All treatment decisions require clinical judgment and consideration of individual patient factors, including patient preferences, comorbidities, previous drug use, risk factors not captured in the FRAX model (e.g. frailty, falls, vitamin D deficiency, increased bone turnover, interval significant decline in bone density) and possible under or overestimation of fracture risk by FRAX. Additional medical evaluation for secondary cause of low bone mineral density may be appropriate. FUTURE SCAN RECOMMENDATION: People with diagnosed cases of osteoporosis or at high risk for fracture should have regular bone mineral density tests. For patients eligible for Medicare, routine testing is allowed once every 2 years. The testing frequency can be increased to one year for patients who have rapidly progressing disease, those who are receiving or discontinuing medical therapy to restore bone mass, or have additional risk factors. Electronically signed by: Mika Grullon MD 03/12/2024 11:19 AM EDT
== END 2024-03-08 11:29 | disposition home or self-care (01) ==
LOC: HO.MAMMO 11:28
PROVIDERS: PCP Internal Medicine; Visit Provider Internal Medicine
DX: Z13.820 Encounter for screening for osteoporosis (principal); Z78.0 Asymptomatic menopausal state
CPT/HCPCS: 77080

== ENCOUNTER 2024-03-12 09:47 | Outpatient (AMB) | payer OTHER, SELFPAY ==
--- NOTE | 2024-03-12 09:49 | A.OFFVIS_ITS ---
Vital Signs 03/12/24 09:56 Height 5 ft 2 in Weight 154 lb 2 oz BMI 28.2 BP 154/70 H Pulse 75 Intake Visit Reasons: Discuss US Guided Biopsy 10 oclock mass, rt breast Intake Note: Patient is seen in office for consult on possible ultrasound guided biopsy, following right breast 10 o'clock mass. 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 Accompanied by: Family/Other Allergies codeine [CODEINE] Allergy (Unknown, Verified 03/12/24 09:56) NAUSEA & VOMITING erythromycin base [ERYTHROMYCIN BASE] Allergy (Unknown, Verified 03/12/24 09:56) NAUSEA & VOMITING Sulfa (Sulfonamide Antibiotics) [SULFA (SULFONAMIDE ANTIBIOTICS)] Allergy (Unknown, Verified 03/12/24 09:56) HIVES Medication List - Last Reconciled 03/12/24 by Bernardino Cintron MD atorvastatin 20 mg PO DAILY naproxen 500 mg PO BID sertraline 150 mg PO DAILY trazodone [id number] mg PO BEDTIME PRN HPI Comments Details: 63-year-old female patient returning for a yearly breast examination and evaluation of a recent mammogram and ultrasound which revealed a new suspicious finding..? She was previously treated by Dr. 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 She underwent a needle localized lumpectomy and sentinel node biopsy of the left side on 07/12/2019.? Pathology revealed ductal carcinoma in-situ, ER/FL negative with positive margins.? She underwent a wider excision on 10/09/2019 which revealed no residual tumor.? She subsequently underwent radiation [facility] at [facility].? Her most recent mammogram of 02/26 with follow-up images of 03/01/2024 including ultrasound revealed a suspicious density in the right breast at the 10 o'clock position approximately 8 cm from the nipple. This was felt to be suspicious for malignancy an ultrasound-guided core biopsy is recommended. She presents today to discuss further management. She denies any new breast symptoms and generally feels well. [facility] Medical History History of radiation therapy Ductal carcinoma in situ (DCIS) of left breast Depression Hypercholesterolemia COPD (chronic obstructive pulmonary disease) Surgical History History of lumpectomy of left breast Status post laparoscopic Shireen fundoplication (~08/2009) Family History Mother History of breast cancer Brother Sweat gland carcinoma Social History Alcohol intake: current Patient Tobacco Use Status: Never used Tobacco Review of Systems Const All systems reviewed & are unremarkable except as noted in HPI and below Physical Exam Const General: comfortable, no acute distress and alert Neck Neck: Yes normal visual inspection, Yes trachea midline and Yes supple Lymphatic: no lymphadenopathy noted Chest Other: Left breast with a well-healed incision in the 3 o'clock position which is clean, dry, and intact. No palpable masses appreciated in the entire left breast. Axillary lymph nodes are not palpable. Right breast with no skin change, no nipple discharge, no palpable mass, no enlarged lymph nodes. Resp Effort & Inspection: normal respiratory effort Auscultation: clear to auscultation bilaterally GI Other: Diastasis recti noted. Small umbilical hernia noted just above the umbilicus, easily reducible with light pressure. Nontender to palpation. Inspection: Yes normal to inspection Skin Other: normal color, warm and dry Assessment & Plan Assessment & Plan (1) Abnormal ultrasound of breast: Code(s): R92.8 - Other abnormal and inconclusive findings on diagnostic imaging of breast Category: Medical Plan 63-year-old female patient with a prior history of left breast DCIS now presenting with a new finding on the right breast at the 10 o'clock position, 8 cm from the nipple. Examination reveals no significant change in either breast with no new suspicious findings. I recommended an ultrasound-guided core biopsy of the suspicious lesion of the right breast. After discussion on regarding the procedure, she is agreeable to proceed. [facility] earliest convenience. She will follow-up proximally 1 week following the procedure to review the pathology results. She is welcome to call sooner for any new concerns or questions. Orders: Orders US breast ndl core biopsy RT Today R92.8 - Other abnormal and inconclusive findings on diagnostic imaging of breast Coding Level of Care Code Est Pt Level 4 (95648) Diagnoses Abnormal ultrasound of breast R92.8
[2024-03-12 09:56] VITALS: BP 154/70; PULSE 75; BMI 28.2
== END 2024-03-12 10:15 | disposition home or self-care (01) ==
PROVIDERS: PCP Internal Medicine; Visit Provider Surgery
DX: R92.8 Other abnormal and inconclusive findings on diagnostic imaging of breast (principal)
CPT/HCPCS: 99214

== ENCOUNTER → 2024-03-12 09:47 | Outpatient (BNVA) | payer OTHER, SELFPAY | PROVIDERS: PCP Internal Medicine; Visit Provider Surgery | DX: R92.8 Other abnormal and inconclusive findings on diagnostic imaging of breast (principal) | CPT/HCPCS: 99212 ==

== ENCOUNTER 2024-03-13 08:00 | Outpatient (REF) | payer OTHER, SELFPAY ==
--- NOTE | ~2024-03-13 | MM_ITS ---
PROCEDURE: US GUIDED BREAST BIOPSY, RIGHT CLINICAL INFORMATION: Right breast 10:00 axis, 8 cm from the nipple, parenchymal distortion/mass on ultrasound measuring approximately 6 x 6 x 6 mm, recommended for ultrasound-guided biopsy. COMPARISON: 03/01/2024 ultrasound right breast. 02/27/2024 diagnostic ultrasound right breast. 11/20/2023 screening mammogram bilateral breasts. PROCEDURAL DETAILS: The details of the procedure, as well as the risks, benefits, and alternatives to the procedure were explained to the patient in detail and all of her questions were answered, after which written informed consent was obtained. Site and side were confirmed. Prior to the procedure, sonography revealed the 6 x 6 x 6 mm hypoechoic irregular mass in the 10:00 axis right breast, 8 cm from the nipple.. A time-out was performed, the lesion intended for biopsy was targeted, and the skin of the overlying right breast was then marked, prepped and draped in the usual sterile fashion. Using sonographic guidance, sterile technique, and 1% lidocaine without epinephrine for local anesthesia, multiple core biopsies were obtained through the targeted area with a 14G spring loaded [employer] [place] core biopsy device. There was real-time confirmation of appropriate needle passage. Sampling was documented. At the completion of tissue sampling, a single butterfly shaped metallic clip was deposited at the biopsy site. There was no evidence of immediate complication. SPECIMEN: 4 well formed core samples were obtained. DIGITAL POST-PROCEDURE MAMMOGRAPHY: Breast density: The tissue is heterogeneously dense which may obscure small masses. BI-RADS version 5, category C. There are no new mammographic findings demonstrated. The postprocedure 2-view direct digital mammogram reveals satisfactory and accurate positioning of the biopsy clip. No hematoma present. The patient tolerated the procedure well and, after assuring adequate hemostasis, was discharged in good condition after reviewing postbiopsy breast care instructions. Final pathology results are pending. MM/MM tomosynthesis diagnostic RT IMPRESSION: 1. No immediate complication from ultrasound-guided percutaneous biopsy right breast 10:00 hypoechoic mass measuring 6 mm, correlating with mammographic distortion. 2. Ultrasound was used to localize and guide marker clip placement. 3. The 2-view direct digital postprocedure mammogram reveals accurate positioning of the biopsy clip. 4. Final pathology results are pending. A separate report with final recommendations will be issued once these results are made available. Electronically signed by: Trell Coulter MD 03/13/2024 01:07 PM EDT RP
[2024-03-13] MEDS: Sodium Bicarbonate 8.4% 50 MEQ/50 ML VIAL SUBCUT (09:25)
[2024-03-13] MEDS: Lidocaine HCl 1 % 20 ML VIAL 5 ML SUBCUT (09:26)
== END 2024-03-13 08:01 | disposition home or self-care (01) ==
LOC: HO.MAMMO 08:00
PROVIDERS: PCP Internal Medicine; Visit Provider Surgery
DX: C50.411 Malignant neoplasm of upper-outer quadrant of right female breast (principal)
CPT/HCPCS: 19083; 77061; 77065; 88305; 88360; A4648; C1894

== ENCOUNTER → 2024-03-13 08:03 | Outpatient (BNV) | payer OTHER, SELFPAY | PROVIDERS: PCP Internal Medicine; Visit Provider Radiology Diagnostic Radiology | DX: R92.8 Other abnormal and inconclusive findings on diagnostic imaging of breast (principal) | CPT/HCPCS: 19083; 77065 ==

== ENCOUNTER 2024-03-19 12:56 | Outpatient (AMB) | payer OTHER, SELFPAY ==
--- NOTE | 2024-03-19 13:20 | MHC.OFFVIS ---
Vital Signs 03/19/24 13:22 Height 5 ft 2 in Weight 152 lb 1.903 oz BMI 27.8 Pulse 72 Intake Visit Reasons: RESULTS us bx rt br Intake Note: Patient is seen in office for ultrasound guided biopsy results, following right breast 10 o'clock mass. 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 Accompanied by: Spouse Allergies codeine [CODEINE] Allergy (Unknown, Verified 03/19/24 13:21) NAUSEA & VOMITING erythromycin base [ERYTHROMYCIN BASE] Allergy (Unknown, Verified 03/19/24 13:21) NAUSEA & VOMITING Sulfa (Sulfonamide Antibiotics) [SULFA (SULFONAMIDE ANTIBIOTICS)] Allergy (Unknown, Verified 03/19/24 13:21) HIVES Medication List - Last Reconciled 03/19/24 by Bernardino Cintron MD atorvastatin 20 mg PO DAILY naproxen 500 mg PO BID sertraline 150 mg PO DAILY trazodone [id number] mg PO BEDTIME PRN HPI Comments Details: 63-year-old female patient returning following a recent ultrasound-guided core biopsy of the right breast. She is a previous patient of Dr. 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 Pathology revealed ductal carcinoma in-situ, ER/IL negative with positive margins. She subsequently underwent wider excision on 10/09/2019 which revealed no residual tumor. She underwent radiation therapy at [facility]. Her most recent mammogram of 02/27/2024 with follow-up images of 03/01/2024 including an ultrasound revealed a density in the right breast at the 10 o'clock position approximately 8 cm from the nipple. This was felt to be suspicious for malignancy an ultrasound-guided core biopsy was recommended. Subsequent pathology revealed invasive ductal carcinoma, grade 1, ER positive, IL negative, HER2 negative, Ki-67 low. She presents today to review the pathology results and discuss treatment options. Tolerated the biopsy well and denies any ongoing breast symptoms. [facility] Medical History History of radiation therapy Ductal carcinoma in situ (DCIS) of left breast Depression Hypercholesterolemia COPD (chronic obstructive pulmonary disease) Surgical History History of lumpectomy of left breast Status post laparoscopic Shireen fundoplication (~08/2009) Family History Mother History of breast cancer Brother Sweat gland carcinoma Social History Alcohol intake: current Patient Tobacco Use Status: Never used Tobacco Review of Systems Const All systems reviewed & are unremarkable except as noted in HPI and below Physical Exam Vital Signs: Last Vital Signs Pulse 72 03/19/24 13:22 BMI result Body Mass Index 27.8 Const General: comfortable, no acute distress and alert Neck Neck: Yes normal visual inspection, Yes trachea midline and Yes supple Lymphatic: no lymphadenopathy noted Chest Other: Left breast with a well-healed incision in the 3 o'clock position which is clean, dry, and intact. No palpable masses appreciated in the entire left breast. Axillary lymph nodes are not palpable. Right breast with no skin change, no nipple discharge, no palpable mass, no enlarged lymph nodes. Resp Effort & Inspection: normal respiratory effort Auscultation: clear to auscultation bilaterally GI Other: Diastasis recti noted. Small umbilical hernia noted just above the umbilicus, easily reducible with light pressure. Nontender to palpation. Inspection: Yes normal to inspection Skin Other: normal color, warm and dry Assessment & Plan Assessment & Plan (1) Invasive ductal carcinoma of right breast: Code(s): C50.911 - Malignant neoplasm of unspecified site of right female breast Category: Medical (2) Ductal carcinoma in situ (DCIS) of left breast: Code(s): D05.12 - Intraductal carcinoma in situ of left breast Category: Medical Plan 63-year-old female patient status post ultrasound-guided core biopsy of the right breast. Pathology revealed invasive ductal carcinoma grade 1, ER positive, IL negative, HER2 negative. We discussed the options for treatment and after review of the procedure, risks, and alternatives, she consents to a right breast lumpectomy with localizer, right axillary sentinel node biopsy. This will be scheduled as a short-stay surgery at her earliest convenience. Coding Level of Care Code Est Pt Level 4 (85157) Diagnoses Invasive ductal carcinoma of right breast C50.911 Ductal carcinoma in situ (DCIS) of left breast D05.12
[2024-03-19 13:22] VITALS: PULSE 72; BMI 27.8
== END 2024-03-19 13:56 | disposition home or self-care (01) ==
PROVIDERS: PCP Internal Medicine; Visit Provider Surgery
DX: C50.911 Malignant neoplasm of unspecified site of right female breast (principal); D05.12 Intraductal carcinoma in situ of left breast
CPT/HCPCS: 99214

== ENCOUNTER → 2024-03-19 12:56 | Outpatient (BNVA) | payer OTHER, SELFPAY | PROVIDERS: PCP Internal Medicine; Visit Provider Surgery | DX: C50.411 Malignant neoplasm of upper-outer quadrant of right female breast (principal); Z17.0 Estrogen receptor positive status [ER+] | CPT/HCPCS: 99212 ==

== ENCOUNTER 2024-03-25 07:58 | Outpatient (REF) | payer OTHER, SELFPAY ==
--- NOTE | ~2024-03-25 | MM_ITS ---
Single right breast specimen radiograph demonstrates the butterfly marker clip and the TAG localizer within the specimen. Findings were communicated to the operating room on 04/11/2024 at 12:40 PM Electronically signed by: Cordelia Miles DO 04/11/2024 12:53 PM EDT
--- NOTE | ~2024-03-25 | MM_ITS ---
EXAMINATION: MM MAMMOGRAM GUIDED RFID LOCALIZATION BREAST, RIGHT CLINICAL INFORMATION: 63-year-old female, new diagnosis grade 1 IDC 10:00 axis right breast, 8 cm from the nipple, with estimated size 7 x 6 x 6 mm. For RFID localization. Patient also has history of breast CA in mother at age 40s, and personal history of left breast DCIS status post consideration therapy in 07/12/2019, with reexcision 10/09/2019. COMPARISON: 03/13/2024 US guided biopsy, 03/01/2024 ultrasound, 02/27/2024 mammography, and 11/20/2023 mammography. TECHNIQUE NEEDLE LOC: Proper informed consent is obtained from the patient after discussion of the procedure, potential risks and complications, and alternatives including declining the procedure today. Patient was given an opportunity for questions. The patient appeared to understand. The patient consented to the procedure and signed the consent form. GUIDANCE: Digital mammography. APPROACH: Lateral Medial. TARGET: Butterfly shaped biopsy clip inside small mass 10:00 axis right breast 8 cm from the nipple. ANESTHESIA: carbonated lidocaine 1%: 7 mL. LOCALIZATION SYSTEM: [employer] LOCallizer Wire-Free Guidance System with 12g needle applicator. RADIOFREQUENCY TAG: ID # [id number] DERMATOTOMY: Single 1 mm skin-adrian dermatotomy performed. RF Tag ID confirmed with LOCalizer Guidance System prior to placement. The skin is prepped and local anesthesia administered. The needle is positioned and RFID tag deployed. Final images demonstrate the LOCalizer RF tag to reside immediately abutting the biopsy clip, residual calcifications, and small mass. This is ideally positioned. The patient tolerated the procedure well and had no immediate complications. Dressing placed and home instructions reviewed. MM/MM RF Tag device RT IMPRESSION: -Status post right breast RFID localization. RFID chip is in optimal placement. -Final CC and ML images are labeled appropriately for OR appearance. Electronically signed by: Trell Coulter MD 03/25/2024 09:39 AM EDT
[2024-03-25] MEDS: Sodium Bicarbonate 8.4% 50 MEQ/50 ML VIAL SUBCUT (09:05)
[2024-03-25] MEDS: Lidocaine HCl 1 % 20 ML VIAL SUBCUT (09:08)
== END 2024-03-25 07:59 | disposition home or self-care (01) ==
LOC: HO.MAMMO 07:58
PROVIDERS: PCP Internal Medicine; Visit Provider Surgery
DX: D05.12 Intraductal carcinoma in situ of left breast (principal); R92.8 Other abnormal and inconclusive findings on diagnostic imaging of breast
CPT/HCPCS: 19281; C1819

== ENCOUNTER → 2024-03-25 08:00 | Outpatient (BNV) | payer OTHER, SELFPAY | PROVIDERS: PCP Internal Medicine; Visit Provider Radiology Diagnostic Radiology | DX: C50.911 Malignant neoplasm of unspecified site of right female breast (principal) | CPT/HCPCS: 19281 ==

== ENCOUNTER 2024-04-11 08:05 | Day surgery (SDC) | payer OTHER, SELFPAY ==
[2024-04-02 08:21] VITALS: BMI 27.8
[2024-04-11] VITALS (7 sets, daily range): BP systolic 150–161; BP diastolic 65–84; PULSE 68–105; RESP 16–18; TEMP 36.2–36.6; O2SAT 93–98; BMI 28.9
--- NOTE | ~2024-04-11 | NM_ITS ---
EXAMINATION: NM LYMPHOSCINTIGRAPHY CLINICAL INFORMATION: 63-year-old female, new diagnosis grade 1 IDC 10:00 axis right breast, 8 cm from the nipple, with estimated size 7 x 6 x 6 mm. Patient also has personal history of left breast DCIS status post conservation therapy in 07/12/2019, with reexcision 10/09/2019. COMPARISON: Right breast RF ID localization 03/25/2024. 03/13/2024 US guided biopsy, 03/01/2024 ultrasound, 02/27/2024 mammography, and 11/20/2023 mammography. TECHNIQUE: Right breast lymphoscintigraphy injection was performed . Approximately 0.5 mCi of technetium 99m lymphoseek (technetium 99m Tilmanocept) and 0.8 mL of saline was divided into 4 aliquots of approximately 0.125 mCi, and injected in 4 quadrants around the right breast areola intradermally at 12:00, 3:00, 6:00, and 9:00. Immediate images and delayed images were obtained in anterior, ARIAS and right lateral views 30 minutes later. FINDINGS: There is strong isotope activity in four-quadrant around right breast areola following injection. At 30 minutes, there are at least 2 areas of isotope activity along the right lower and mid axilla suggestive of several lymph nodes. NM/NM sentinel node w imaging IMPRESSION: -At least 2 small lymph nodes seen in right lower and mid axilla on right breast lymphoscintigraphy. Thank you for the courtesy of your referral. Electronically signed by: Trell Coulter MD 04/11/2024 11:20 AM EDT
[2024-04-11] MEDS: Lactated Ringers 1,000 ML 100 ML IVCONT (08:54)
--- NOTE | 2024-04-11 10:32 | MHC.SHP ---
Pre-Procedural Eval Section A - 24 Hr Update-Section A only Date of Service: 04/11/24 The patient is an INPATIENT: No Changes since office visit: Yes Patient answered all questions; No Cold of Flu in the past 2 weeks, No New Medical Problems and No Changes in Medication The patient has been examined within 24 hours of the surgical procedure. The History & Physical has been completed within 30 days and I have reviewed it.: Yes Section B - Complete if H&P > 30 days Chief Complaint: Intraductal carcinoma in situ of L breast,neoplasm Allergies: Allergies Allergy/AdvReac Type Severity Reaction Status Date / Time codeine [CODEINE] Allergy Intermediate NAUSEA & Verified 04/02/24 08:05 VOMITING erythromycin base Allergy Intermediate NAUSEA & Verified 04/02/24 08:05 [ERYTHROMYCIN BASE] VOMITING Sulfa (Sulfonamide Allergy Intermediate HIVES Verified 04/02/24 08:05 Antibiotics) [SULFA (SULFONAMIDE ANTIBIOTICS)] Plan Diagnosis/Plan: Unchanged I have reviewed the history and physical and performed a pertinent physical examination on my patient. No changes have occurred unless specified. Time Spent With Patient Time: Total time managing care of this patient today ____ minutes.
--- NOTE | 2024-04-11 10:45 | PC.NURSE ---
patient back from sentinel node. resting comfortably.
--- NOTE | 2024-04-11 11:40 | HO.ANESPROP2 ---
Documented by User: Kaley Leach NP 04/10/24 12:28 HPI - Anesthesia Eval Consult details Narrative: 63yo F for Right Breast Lumpectomy w/LOCalizer, [place] Node Biopsy PMFSH Active Problems Active Problems: All Active Problems Invasive ductal carcinoma of right breast (Acute) Abnormal ultrasound of breast (Acute) Encounter for annual routine gynecological examination (Acute) Umbilical hernia (Acute) Well woman exam with routine gynecological exam (Acute) Ductal carcinoma in situ (DCIS) of left breast (Acute) Depression (Acute) Hypercholesterolemia (Acute) COPD (chronic obstructive pulmonary disease) (Acute) Past Medical History Medical History (Updated 04/02/24 @ 08:26 by Suzy Law RN) Hiatal hernia Arthritis Pre-diabetes History of radiation therapy Ductal carcinoma in situ (DCIS) of left breast Depression Hypercholesterolemia COPD (chronic obstructive pulmonary disease) Family History Family History Mother History of breast cancer Brother Sweat gland carcinoma Surgical History Surgical History (Updated 04/02/24 @ 08:26 by Suzy Law RN) Hx of abdominoplasty Hx of excision of mass H/O colonoscopy History of lumpectomy of left breast Status post laparoscopic Shireen fundoplication (~08/2009) Social History Social History Are you a primary healthcare representative to a significant other at home: No Alcohol intake: current Patient Tobacco Use Status: Former Tobacco user Tobacco use type: Cigarette Cigarette Packs Per Day: 1 Cigarettes Per Day: 20.0 Years Smoked: 25 Use of substances other than those prescribed or required for medical reasons: Yes Substance Use Type Other:: smokes marijuana daily Substance Use Frequency: Daily Have you been hit, kicked, punched, or otherwise hurt by someone within the past year? If so, by whom?: No Spiritual Healthcare Practices: none [facility] Practices: none Cultural Healthcare Practices: none Are you DNR?: No Advance Directives Information Provided: Yes (as above noted) Advance Directives on File: No Recently lost weight without trying: No Eating poorly because of decreased appetite: No Nutrition Risks: No Nutritional Risk Patient : No (N/A) FDLMP: N/A Poor oral hygiene: No Meds Allergies Allergy/AdvReac Type Severity Reaction Status Date / Time codeine [CODEINE] Allergy Intermediate NAUSEA & Verified 04/02/24 08:05 VOMITING erythromycin base Allergy Intermediate NAUSEA & Verified 04/02/24 08:05 [ERYTHROMYCIN BASE] VOMITING Sulfa (Sulfonamide Allergy Intermediate HIVES Verified 04/02/24 08:05 Antibiotics) [SULFA (SULFONAMIDE ANTIBIOTICS)] Home Medications ?Medication ?Instructions ?Recorded ?Confirmed ?Last Taken ?Type atorvastatin 20 mg tablet 20 mg PO BEDTIME 04/16/20 04/02/24 Unknown History naproxen 500 mg tablet 500 mg PO BID 04/16/20 04/02/24 04/03/24 History sertraline 100 mg tablet 150 mg PO QAM 04/16/20 04/02/24 04/11/24 History trazodone 100 mg tablet 200 mg PO BEDTIME PRN Insomnia 04/16/20 04/02/24 Unknown History Exam Height,Weight and Vital Signs: Height 5 ft 2 in Weight 68.946 kg Pertinent Lab Results Pertinent Lab Results: BMP and CBC 01/2024 ok except platelets low @ 93 Assessment and Plan Assessment Anesthesia Assessment: Chart Reviewed Documented by User: Janice Arciniega DO 04/11/24 12:28 PMFSH Past Medical History Medical History (Updated 04/02/24 @ 08:26 by Suzy Law RN) Hiatal hernia Arthritis Pre-diabetes History of radiation therapy Ductal carcinoma in situ (DCIS) of left breast Depression Hypercholesterolemia COPD (chronic obstructive pulmonary disease) Family History Family History Mother History of breast cancer Brother Sweat gland carcinoma Family history of problems with anesthesia: No Surgical History Surgical History (Updated 04/02/24 @ 08:26 by Suzy Law RN) Hx of abdominoplasty Hx of excision of mass H/O colonoscopy History of lumpectomy of left breast Status post laparoscopic Shireen fundoplication (~08/2009) History of Problems with Anesthesia: No Social History Social History Are you a primary healthcare representative to a significant other at home: No Alcohol intake: current Patient Tobacco Use Status: Former Tobacco user Tobacco use type: Cigarette Cigarette Packs Per Day: 1 Cigarettes Per Day: 20.0 Years Smoked: 25 Use of substances other than those prescribed or required for medical reasons: Yes Substance Use Type Other:: smokes marijuana daily Substance Use Frequency: Daily Have you been hit, kicked, punched, or otherwise hurt by someone within the past year? If so, by whom?: No Spiritual Healthcare Practices: none [facility] Practices: none Cultural Healthcare Practices: none Are you DNR?: No Advance Directives Information Provided: Yes (as above noted) Advance Directives on File: No Recently lost weight without trying: No Eating poorly because of decreased appetite: No Nutrition Risks: No Nutritional Risk Patient : No (N/A) FDLMP: N/A Poor oral hygiene: No Meds Allergies Allergy/AdvReac Type Severity Reaction Status Date / Time codeine [CODEINE] Allergy Intermediate NAUSEA & Verified 04/02/24 08:05 VOMITING erythromycin base Allergy Intermediate NAUSEA & Verified 04/02/24 08:05 [ERYTHROMYCIN BASE] VOMITING Sulfa (Sulfonamide Allergy Intermediate HIVES Verified 04/02/24 08:05 Antibiotics) [SULFA (SULFONAMIDE ANTIBIOTICS)] Home Medications ?Medication ?Instructions ?Recorded ?Confirmed ?Last Taken ?Type atorvastatin 20 mg tablet 20 mg PO BEDTIME 04/16/20 04/02/24 Unknown History naproxen 500 mg tablet 500 mg PO BID 04/16/20 04/02/24 04/03/24 History sertraline 100 mg tablet 150 mg PO QAM 04/16/20 04/02/24 04/11/24 History trazodone 100 mg tablet 200 mg PO BEDTIME PRN Insomnia 04/16/20 04/02/24 Unknown History Exam Exam Date and Time: 04/11/24 1140 Height,Weight and Vital Signs: Height 5 ft 2 in Weight 68.946 kg Vital Signs Temperature 97.9 F 04/11/24 08:32 Pulse Rate 71 04/11/24 08:32 Respiratory Rate 16 04/11/24 08:32 Blood Pressure 153/65 H 04/11/24 08:32 Pulse Oximetry 98 10/03/24 08:32 Oxygen Delivery Method Room Air 04/11/24 08:32 Temperature 97.9 F 04/11/24 08:32 Pulse Rate 71 04/11/24 08:32 Respiratory Rate 16 04/11/24 08:32 Blood Pressure 153/65 H 04/11/24 08:32 Pulse Oximetry 98 04/11/24 08:32 Oxygen Delivery Method Room Air 04/11/24 08:32 Airway Mallampati Class: II TM Dist: >3cm Neck ROM: Full Loose/Missing/Broken Teeth: No (patient denies any loose or broken teeth) Heart: S1S2 Lungs: CTAB Assessment and Plan Assessment Anesthesia Assessment: Anesthesia Plan Discussed and Chart Reviewed Final Anesthetic Review Family History of Problems with Anesthesia: No History of Problems with Anesthesia: No NPO: Yes ASA Class: III Final Preanesthetic Review: No Changes in Pt Med Stat, Meds/Allgs Chart Reviewed, Consent Obtained/Reviewed and Anes Risks/Benef Reviewed Patient Risk: Low Procedure Risk: Low Anesthetic Plan Anesthetic Plan: GA and Agree w/ Assess. and Plan Disposition: Standard PACU
--- NOTE | 2024-04-11 13:07 | P.OP_ITS ---
Operative Note Operative Note Date of Service: 04/11/24 Narrative: * procedure performed with curative intent Preoperative diagnosis: Invasive ductal carcinoma right breast upper outer quadrant Postoperative diagnosis: Same Procedure: Right breast lumpectomy with localizer, right axillary sentinel node biopsy Surgeon: Bernardino Cintron MD [employer]: Amanda Jose PA-C Anesthesia: General LMA Indications for procedure: 63-year-old female patient presenting with a recent mammogram which revealed an architectural distortion in the upper outer quadrant of the right breast confirmed by ultrasound. She subsequently underwent ultrasound-guided core biopsy which revealed invasive ductal carcinoma of the right breast. She presents today for right breast lumpectomy with sentinel node biopsy. Operative findings: Specimen x-ray confirms the localizer clip and marking clip within the specimen. Gross pathology confirmed a least 5 mm margins past the tumor. One hot node was noted in the right axilla and a 2nd minimally hot node was also removed. Specimen: Right breast lumpectomy upper outer quadrant, sentinel node 1, sentinel node 2 Estimated blood loss: 5 mL Complications: None Procedure details: Patient was brought to the OR placed in a supine position. After administering general anesthesia the patient's right breast was prepped with ChloraPrep and draped in a sterile fashion. A surgical time-out was called and consent confirmed. Patient received preoperative antibiotics and Venodyne boots were in place. Local anesthesia was then infiltrated in the right breast at the upper outer quadrant in a curvilinear fashion. Incision was then created with a scalpel and carried out through subcutaneous tissue. Superior and inferior skin flaps were then created with electrocautery. Beginning at the medial margin and using the localizer device to confirmed the location of the clip electrocautery was used to dissect well beyond the clip medially down to chest wall. Superior and inferior margins were then created he again using electrocautery. This was followed by the posterior margin and lateral margin. The specimen was removed and passed off the table. A specimen x-ray confirmed the marking clip and localizer clip within the specimen. The specimen was then sent to pathology for further examination. Attention was then directed to the axilla which was easily approach through the breast incision. The gamma probe was used to identify the area of radio activity. This was gently dissected using blunt dissection with a hemostat down to the hot node. This was grasped with a Allis clamp and dissected free using electrocautery. [place] node 1 had counts of 4048. Additional radio activity was noted in the axilla and a 2nd node was removed with counts of a proximally 10. Wounds were then irrigated with saline solution and suctioned dry. After confirmation of the gross pathology, clavipectoral fascia was closed using interrupted 3-0 Polysorb sutures. Subcutaneous tissue was reapproximated using interrupted 3-0 Polysorb sutures. Dermis was then reapproximated using interrupted 3-0 Polysorb sutures. Skin was closed using a running subcuticular 4-0 Polysorb suture. Steri-Strips, 4 x 4 gauze and Tegaderm were then applied. The patient tolerated the procedure well. Sponge, instrument, and needle counts reported as correct. The patient was transferred to PACU in stable condition. Breast [place] Node Biopsy Substrate(s) used for sentinel node biopsy in the non-neoadjuvant setting: N/A Substrate(s) used for sentinel node biopsy in the neoadjuvant setting: Radiotracer All colored nodes or non-colored nodes present at the end of a dye filled lymphatic channel were removed, if dye was used as the substrate for localization: N/A All significantly radioactive nodes were removed, if radionuclide was used as the substrate for localization: Yes All palpably suspicious nodes were removed, if present: Yes If clips were placed in pathology-involved nodes, those nodes were identified and removed: N/A General Surg. - Synoptic Notes Breast [place] Node Biopsy Substrate(s) used for sentinel node biopsy in the non-neoadjuvant setting: N/A Substrate(s) used for sentinel node biopsy in the neoadjuvant setting: Radiotracer All colored nodes or non-colored nodes present at the end of a dye filled lymphatic channel were removed, if dye was used as the substrate for localization: N/A All significantly radioactive nodes were removed, if radionuclide was used as the substrate for localization: Yes All palpably suspicious nodes were removed, if present: Yes If clips were placed in pathology-involved nodes, those nodes were identified and removed: N/A
== END 2024-04-11 14:51 | disposition home or self-care (01) ==
PROVIDERS: PCP Internal Medicine; Visit Provider Surgery
PROC: (CPT 19301; principal; 2024-04-11 12:00)
PROC: (CPT 19301; 2024-04-11 12:00)
DX: C50.411 Malignant neoplasm of upper-outer quadrant of right female breast (principal); Z17.0 Estrogen receptor positive status [ER+]; Z17.22 Progesterone receptor negative status; Z17.32 Human epidermal growth factor receptor 2 negative status; Z85.3 Personal history of malignant neoplasm of breast; Z92.3 Personal history of irradiation; J44.9 Chronic obstructive pulmonary disease, unspecified; E78.00 Pure hypercholesterolemia, unspecified; M19.90 Unspecified osteoarthritis, unspecified site; F32.A Depression, unspecified; Z88.1 Allergy status to other antibiotic agents; Z88.2 Allergy status to sulfonamides; Z88.5 Allergy status to narcotic agent; Z79.1 Long term (current) use of non-steroidal anti-inflammatories (NSAID); Z79.899 Other long term (current) drug therapy
CPT/HCPCS: 19301; 38525; 38900; 78195; 88307; 88329; 88341; 88342; 88360; A9520; J0131; J0690; J1100; J2003; J2250; J2405; J2704; J2795; J3010

== ENCOUNTER → 2024-04-11 08:05 | Outpatient (BNV) | payer OTHER, SELFPAY | PROVIDERS: PCP Internal Medicine; Visit Provider Surgery | DX: C50.911 Malignant neoplasm of unspecified site of right female breast (principal) | CPT/HCPCS: 19301; 38525; 38900 ==

== ENCOUNTER → 2024-04-11 08:30 | Outpatient (BNV) | payer OTHER, SELFPAY | PROVIDERS: PCP Internal Medicine; Visit Provider Radiology Diagnostic Radiology | DX: C50.411 Malignant neoplasm of upper-outer quadrant of right female breast (principal) | CPT/HCPCS: 78195 ==

== ENCOUNTER 2024-04-23 10:28 | Outpatient (AMB) | payer OTHER, SELFPAY ==
--- NOTE | 2024-04-23 10:30 | MHC.OFFVIS ---
Vital Signs 04/23/24 10:36 Height 5 ft 2 in Weight 157 lb 4 oz BMI 28.8 BP 139/66 Blood Pressure Location Lt brachial Position Sitting Pulse 88 Intake Visit Reasons: S/P Rt brst lumpectomy w/localizer, Rt SN bx Intake Note: Patient is seen in office for post op assessment post right breast lumpectomy. Pt c/o:admits to sore and numb in the right side surgery:04/11/24 Registration Specialist Required: No Accompanied by: Family/Other Allergies codeine [CODEINE] Allergy (Intermediate, Verified 04/23/24 10:35) NAUSEA & VOMITING erythromycin base [ERYTHROMYCIN BASE] Allergy (Intermediate, Verified 04/23/24 10:35) NAUSEA & VOMITING Sulfa (Sulfonamide Antibiotics) [SULFA (SULFONAMIDE ANTIBIOTICS)] Allergy (Intermediate, Verified 04/23/24 10:35) HIVES Medication List - Last Reconciled 04/23/24 by Bernardino Cintron MD atorvastatin 20 mg PO BEDTIME naproxen 500 mg PO BID sertraline 150 mg PO QAM trazodone 200 mg PO BEDTIME PRN HPI Comments Details: 63-year-old female patient returning following right breast lumpectomy and right axillary sentinel node biopsy for invasive ductal carcinoma performed on 04/11/2024. She reports some numbness on the axilla as well as soreness in the upper outer quadrant of the right breast. She otherwise tolerated the procedure well. Pathology revealed invasive ductal carcinoma grade 1, 9 mm size with DCIS grade 1 both with negative margins of at least 5 mm. 0/3 sentinel nodes revealed metastatic disease. She is a previous patient of Dr. 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 Pathology revealed ductal carcinoma in-situ, ER/VA negative with positive margins. She subsequently underwent wider excision on 10/09/2019 which revealed no residual tumor. She underwent radiation therapy at [facility]. Her most recent mammogram of 02/27/2024 with follow-up images of 03/01/2024 including an ultrasound revealed a density in the right breast at the 10 o'clock position approximately 8 cm from the nipple. This was felt to be suspicious for malignancy an ultrasound-guided core biopsy was recommended. Subsequent pathology revealed invasive ductal carcinoma, grade 1, ER positive, VA negative, HER2 negative, Ki-67 low. She returns today for wound check following right breast lumpectomy, sentinel node biopsy right axilla. [facility] Medical History Hiatal hernia Arthritis Pre-diabetes History of radiation therapy Ductal carcinoma in situ (DCIS) of left breast Depression Hypercholesterolemia COPD (chronic obstructive pulmonary disease) Surgical History History of lumpectomy of right breast (04/11/24) Hx of abdominoplasty Hx of excision of mass H/O colonoscopy History of lumpectomy of left breast Status post laparoscopic Shireen fundoplication (~08/2009) Family History Mother History of breast cancer Brother Sweat gland carcinoma Social History Are you a primary healthcare financial analyst to a significant other at home: No Alcohol intake: current Patient Tobacco Use Status: Former Tobacco user Tobacco use type: Cigarette Cigarette Packs Per Day: 1 Cigarettes Per Day: 20.0 Years Smoked: 25 Review of Systems Const All systems reviewed & are unremarkable except as noted in HPI and below Physical Exam Vital Signs: Last Vital Signs Pulse 88 04/23/24 10:36 BP 139/66 04/23/24 10:36 BMI result Body Mass Index 28.8 Const General: comfortable, no acute distress and alert Neck Neck: Yes normal visual inspection, Yes trachea midline and Yes supple Lymphatic: no lymphadenopathy noted Chest Other: Right breast incision in the upper outer quadrant clean, dry and intact. No hematoma or seroma appreciated. Resp Effort & Inspection: normal respiratory effort Auscultation: clear to auscultation bilaterally GI Other: Diastasis recti noted. Small umbilical hernia noted just above the umbilicus, easily reducible with light pressure. Nontender to palpation. Inspection: Yes normal to inspection Skin Other: normal color, warm and dry Assessment & Plan Assessment & Plan (1) Ductal carcinoma in situ (DCIS) of left breast: Code(s): D05.12 - Intraductal carcinoma in situ of left breast Category: Medical (2) Invasive ductal carcinoma of right breast: Code(s): C50.911 - Malignant neoplasm of unspecified site of right female breast Category: Medical Plan 63-year-old female patient with a prior history of DCIS left breast now presenting with a new invasive ductal carcinoma right breast, status post right breast lumpectomy with sentinel node biopsy. She tolerated the procedure well and her wounds are healing nicely. I recommended follow-up with Medical Oncology. We discussed the role of radiation therapy as well as the need to continue follow-up. She was inquiring regarding bilateral prophylactic mastectomy. I recommended further discussion with Medical Oncology. She expressed understanding and agrees with the plan. She will follow-up in 1 month, sooner p.r.n.. Orders: Referrals Hematology & Oncology Referral C50.911 - Malignant neoplasm of unspecified site of right female breast, D05.12 - Intraductal carcinoma in situ of left breast Coding Level of Care Code Global (27696) Diagnoses Ductal carcinoma in situ (DCIS) of left breast D05.12 Invasive ductal carcinoma of right breast C50.911
[2024-04-23 10:36] VITALS: BP 139/66; PULSE 88; BMI 28.8
== END 2024-04-23 10:53 | disposition home or self-care (01) ==
PROVIDERS: PCP Internal Medicine; Visit Provider Surgery
DX: D05.12 Intraductal carcinoma in situ of left breast (principal); C50.911 Malignant neoplasm of unspecified site of right female breast
CPT/HCPCS: 99024

== ENCOUNTER → 2024-04-23 10:28 | Outpatient (BNVA) | payer OTHER, SELFPAY | PROVIDERS: PCP Internal Medicine; Visit Provider Surgery | DX: D05.12 Intraductal carcinoma in situ of left breast (principal); C50.911 Malignant neoplasm of unspecified site of right female breast | CPT/HCPCS: 99212 ==

== ENCOUNTER → 2024-05-07 09:40 | Outpatient (BNV) | payer OTHER, SELFPAY | PROVIDERS: PCP Internal Medicine; Referring Provider Surgery; Visit Provider Internal Medicine Medical Oncology | DX: C50.211 Malignant neoplasm of upper-inner quadrant of right female breast (principal) | CPT/HCPCS: 99204; 99213 ==

== ENCOUNTER 2024-05-24 13:56 | Outpatient (AMB) | payer OTHER, SELFPAY ==
--- NOTE | 2024-05-24 13:58 | A.OFFVIS_ITS ---
Vital Signs 05/24/24 14:06 Height 5 ft 5 in Weight 158 lb BMI 26.3 BP 141/66 H Blood Pressure Location Lt brachial Position Sitting Pulse 92 Intake Visit Reasons: 1 mth fu S/P Rt brst lumpectomy w/localizer Intake Note: Patient is seen in office for one month follow up visit, post right breast lumpectomy. Pt c/o: seen by Dr Callahan is still waiting on labs results to know if she will need chemotherapy, continued numbness of the right axilla Asbestos Worker Required: No Accompanied by: Family/Other Allergies codeine [CODEINE] Allergy (Intermediate, Verified 05/24/24 14:05) NAUSEA & VOMITING erythromycin base [ERYTHROMYCIN BASE] Allergy (Intermediate, Verified 05/24/24 14:05) NAUSEA & VOMITING Sulfa (Sulfonamide Antibiotics) [SULFA (SULFONAMIDE ANTIBIOTICS)] Allergy ( Intermediate, Verified 05/24/24 14:05) HIVES Medication List - Last Reconciled 05/24/24 by Bernardino Cintron MD atorvastatin 20 mg PO BEDTIME cholecalciferol (vitamin D3) (Vitamin D3) 125 mcg PO DAILY naproxen 500 mg PO BID sertraline 150 mg PO QAM trazodone 200 mg PO BEDTIME PRN HPI Comments Details: 63-year-old female patient returning 1 month following right breast lumpectomy and right axillary sentinel node biopsy for invasive ductal carcinoma performed on 04/11/2024. Pathology confirmed invasive ductal carcinoma grade 1, 9 mm size with DCIS grade 1 both with negative margins of at least 5 mm. 0/3 sentinel nodes revealed metastatic disease (pT1b N0(sn) AJCC Stage 8th ed).? Her past history is significant for left breast DCIS.? She underwent a left breast lumpectomy on 07/12/2019 and subsequent wider excision for positive margins on 10/09/2019 (Dr. Bobo). She underwent radiation therapy at [facility]. Mammogram of 02/27/2024 with follow-up images and ultrasoun of 03/01/2024 revealed a density in the right breast at the 10 o'clock position approximately 8 cm from the nipple. ?The density was felt to be suspicious and an ultrasound-guided core biopsy revealed invasive ductal carcinoma, grade 1, ER/IA positive, HER2 Pallavi negative, Ki-67 low.? She subsequently underwent the right breast lumpectomy with right axillary sentinel node biopsy on 04/11/2024.? She was evaluated by Dr. Callahan who was considering an aromatase inhibitor.? She has been referred to [facility] radiation oncology. ? [facility] Medical History Hiatal hernia Arthritis Pre-diabetes History of radiation therapy Ductal carcinoma in situ (DCIS) of left breast Depression Hypercholesterolemia COPD (chronic obstructive pulmonary disease) Surgical History History of lumpectomy of right breast (04/11/24) Hx of abdominoplasty Hx of excision of mass H/O colonoscopy History of lumpectomy of left breast Status post laparoscopic Shireen fundoplication (~08/2009) Family History Mother History of breast cancer Brother Sweat gland carcinoma Social History Household Members: Spouse Are you a primary medical care manager to a significant other at home: No Alcohol intake: current Patient Tobacco Use Status: Former Tobacco user Tobacco use type: Cigarette Cigarette Packs Per Day: 1 Years Smoked: 25 Substance Use Type: Marijuana service: No Current occupational status: retired Physical Exam Const General: comfortable, no acute distress and alert Neck Neck: Yes normal visual inspection, Yes trachea midline and Yes supple Lymphatic: no lymphadenopathy noted Chest Other: Right breast incision in the upper outer quadrant clean, dry and intact. No hematoma or seroma appreciated. Resp Effort & Inspection: normal respiratory effort Auscultation: clear to auscultation bilaterally GI Other: Diastasis recti noted. Small umbilical hernia noted just above the umbilicus, easily reducible with light pressure. Nontender to palpation. Inspection: Yes normal to inspection Skin Other: normal color, warm and dry Assessment & Plan Assessment & Plan (1) Invasive ductal carcinoma of right breast: Code(s): C50.911 - Malignant neoplasm of unspecified site of right female breast Category: Medical (2) Ductal carcinoma in situ (DCIS) of left breast: Code(s): D05.12 - Intraductal carcinoma in situ of left breast Category: Medical Plan 63-year-old female patient with a prior history of DCIS left breast now presenting with a new invasive ductal carcinoma right breast, status post right breast lumpectomy with sentinel node biopsy. She was evaluated by Dr. Callahan who was awaiting Oncotype DX results. She is considering starting on aromatase inhibitors. She is scheduled for an appointment with Radiation oncology at [facility]. Examination today reveals a well-healed incision with no hematoma or seroma. I recommended a follow-up examination in approximately 3 months, sooner p.r.n.. Coding Level of Care Code Global (61459) Diagnoses Invasive ductal carcinoma of right breast C50.911 Ductal carcinoma in situ (DCIS) of left breast D05.12
[2024-05-24 14:06] VITALS: BP 141/66; PULSE 92; BMI 26.3
== END 2024-05-24 14:20 | disposition home or self-care (01) ==
PROVIDERS: PCP Internal Medicine; Visit Provider Surgery
DX: C50.911 Malignant neoplasm of unspecified site of right female breast (principal); D05.12 Intraductal carcinoma in situ of left breast
CPT/HCPCS: 99024

== ENCOUNTER → 2024-05-24 13:56 | Outpatient (BNVA) | payer OTHER, SELFPAY | PROVIDERS: PCP Internal Medicine; Visit Provider Surgery | DX: C50.911 Malignant neoplasm of unspecified site of right female breast (principal); D05.12 Intraductal carcinoma in situ of left breast | CPT/HCPCS: 99212 ==

== ENCOUNTER 2024-08-27 09:29 | Outpatient (AMB) | payer OTHER, SELFPAY ==
--- NOTE | 2024-08-27 09:39 | A.OFFVIS_ITS ---
Vital Signs 3 08/27/24 09:55 Height 5 ft 2 in Weight 161 lb BMI 29.4 BP 149/70 H Blood Pressure Location Lt brachial Position Sitting Pulse 84 Intake Visit Reasons: 3 mth fu S/P Rt brst lumpectomy w/localizer Intake Note: Patient is seen in office for 3 month follow up visit, post right breast lumpectomy. Pt c/o: finished radiation a week ago, is on Anastrozole side effects hot flashes, joint pain, light head mm:04/02/24 Builder'S Labourer Required: No Accompanied by: Spouse Allergies codeine [CODEINE] Allergy (Intermediate, Verified 08/27/24 09:40) NAUSEA & VOMITING erythromycin base [ERYTHROMYCIN BASE] Allergy (Intermediate, Verified 08/27/24 09:40) NAUSEA & VOMITING Sulfa (Sulfonamide Antibiotics) [SULFA (SULFONAMIDE ANTIBIOTICS)] Allergy (Intermediate, Verified 08/27/24 09:40) HIVES HPI Comments Details: 63-year-old female patient returning 4 months following right breast lumpectomy and right axillary sentinel node biopsy for invasive ductal carcinoma performed on 04/11/2024. Her past history is significant for left breast DCIS.? She underwent a left breast lumpectomy on 07/12/2019 and subsequent wider excision for positive margins on 10/09/2019 (Dr. Bobo). She underwent radiation therapy at [facility]. Mammogram of 02/27/2024 with follow-up images and ultrasound of 03/01/2024 revealed a density in the right breast at the 10 o'clock position approximately 8 cm from the nipple. ?The density was felt to be suspicious and an ultrasound-guided core biopsy revealed invasive ductal carcinoma, grade 1, ER/IL positive, HER2 Pallavi negative, Ki-67 low.? She subsequently underwent the right breast lumpectomy with right axillary sentinel node biopsy on 04/11/2024. Pathology confirmed invasive ductal carcinoma grade 1, 9 mm size with DCIS grade 1 both with negative margins of at least 5 mm. 0/3 sentinel nodes revealed metastatic disease (pT1b N0(sn) AJCC Stage 8th ed).?? She was evaluated by Dr. Callahan and started on Arimidex 1 mg p.o. daily. She completed radiation therapy but does have some pain still in the right breast extending into the axilla. [facility] Medical History Hiatal hernia Arthritis Pre-diabetes History of radiation therapy Ductal carcinoma in situ (DCIS) of left breast Depression Hypercholesterolemia COPD (chronic obstructive pulmonary disease) Surgical History History of lumpectomy of right breast (04/11/24) Hx of abdominoplasty Hx of excision of mass H/O colonoscopy History of lumpectomy of left breast Status post laparoscopic Shireen fundoplication (~08/2009) Family History Mother History of breast cancer Brother Sweat gland carcinoma Social History Household Members: Spouse Are you a primary pediatric care coordinator to a significant other at home: No Alcohol intake: current Patient Tobacco Use Status: Former Tobacco user Tobacco use type: Cigarette Cigarette Packs Per Day: 1 Years Smoked: 25 Substance Use Type: Marijuana service: No Current occupational status: retired Review of Systems Const All systems reviewed & are unremarkable except as noted in HPI and below Reports other (Hot flashes) Physical Exam Const General: comfortable, no acute distress and alert Neck Neck: Yes normal visual inspection, Yes trachea midline and Yes supple Lymphatic: no lymphadenopathy noted Chest Other: Right breast incision in the upper outer quadrant clean, dry and intact. No hematoma or seroma appreciated. Minimal RT changes in the right breast. No evidence of lymphedema. No new palpable mass or skin change. Left breast with no new skin change, nipple discharge, palpable mass or enlarged lymph nodes. Chest/axillae images: 2 1. Incision upper outer quadrant Resp Effort & Inspection: normal respiratory effort Auscultation: clear to auscultation bilaterally GI Other: Diastasis recti noted. Small umbilical hernia noted just above the umbilicus, easily reducible with light pressure. Nontender to palpation. Inspection: Yes normal to inspection Skin Other: normal color, warm and dry Assessment & Plan Assessment & Plan (1) Invasive ductal carcinoma of right breast: Code(s): C50.911 - Malignant neoplasm of unspecified site of right female breast Category: Medical (2) Ductal carcinoma in situ (DCIS) of left breast: Code(s): D05.12 - Intraductal carcinoma in situ of left breast Category: Medical Plan 63-year-old female patient with a prior history of DCIS left breast now presenting with a new invasive ductal carcinoma right breast, status post right breast lumpectomy with sentinel node biopsy. She was evaluated by Dr. Callahan and started on anastrozole 1 mg p.o. daily. She completed radiation therapy at [facility]. Examination today reveals well-healed bilateral breast incisions with no new suspicious findings in either breast. She tolerated the radiation well with good skin condition. I recommended follow-up evaluation in 6 months, sooner p.r.n.. She will be due for mammogram in November but we may pushes back several months due to her postradiation breast pain. Coding Level of Care Code Est Pt Level 3 (50219) Diagnoses Invasive ductal carcinoma of right breast C50.911 Ductal carcinoma in situ (DCIS) of left breast D05.12
[2024-08-27 09:55] VITALS: BP 149/70; PULSE 84; BMI 29.4
--- OUTSIDE RECORDS SUMMARY | 2024-08-27 10:17 | XMS_ITS ---
Author Organization [facility] Address [address] [place] [phone] Phone Care Team Providers Care Executive Relations Specialist Name Role Phone Hector Cadet MD Primary Care Provider [phone] Active Problems Problem Noted Date Diagnosed Date Malignant neoplasm of upper- outer quadrant of right breast in female, estrogen receptor positive 05/29/2024 Breast cancer of upper-outer quadrant of right female breast 05/23/2024 Cancer Staging:Pathologic:Stage IA(pT1b, pN0, cM0, G1, ER+, [place]-, HER2-, Oncotype DX score: 19) - Signed by Claudia Silverio MD on 05/29/2024 Arthritis 05/23/2024 COPD (chronic obstructive pulmonary disease) Depression 05/23/2024 Ductal carcinoma in situ (DCIS) of left breast 1 07/23/2023 Hiatal hernia 05/23/2024 History of radiation therapy 05/23/2024 Hypercholesterolemia 05/23/2024 Pre-diabetes 05/23/2024 Current Oncology Plans No current plan information found. Past Plans No past plan information found. Radiation Treatments * Treatment Site Started On Last Treated On Elapsed Days Fractions Complete Last Fraction Dose Given/Prescribed Total Dose Given/Prescribed Technique Right Breast Boost 07/18/2024 5 5 4 of 4 250 cGy / 250 cGy 1,000 cGy / 1, 000 cGy Electron boost Right Breast 06/24/20 24 07/17/2024 23 16 of 16 267 cGy / 267 cGy 4,272 cGy / 4,272 cGy Tangents
--- OUTSIDE RECORDS SUMMARY | 2024-08-27 10:17 | XMS_ITS | Clinical Summary ---
Author Organization [facility] Address [address] [place] [phone] Phone Care Team Providers Care Fagot Maker Name Role Phone Hector Cadet MD Primary Care Provider [phone] Allergies Active Allergy Reactions Criticality Noted Date Comments Codeine 05/23/2024 Erythromycin 05/23/2024 Sulfa (Sulfonamide Antibiotics) 05/10 Medications atorvastatin (LIPITOR) 20 mg tablet Take 1 tablet (20 mg total) by mouth at bedtime. Active naproxen (EC NAPROSYN) 500 mg EC tablet Take 1 tablet (500 mg total) by mouth 2 (two) times a day. Do not crush, chew, or split. Active sertraline (ZOLOFT) 100 mg tablet Take 1.5 tablets (150 mg total) by mouth 1 (one) time each day. Active traZODone (DESYREL) 100 mg tablet Take 2 tablets (200 mg total) by mouth at bedtime. Active hydrOXYzine HCL (ATARAX) 10 mg tablet Take 1 tablet (10 mg total) by mouth at bedtime. Active anastrozole (ARIMIDEX) 1 mg Take 1 tablet (1 mg total) by mouth 1 (one) time each day Swallow whole with a drink of water. Active Active Problems Problem Noted Date Diagnosed Date Malignant neoplasm of upper- outer quadrant of right breast in female, estrogen receptor positive 05/29/2024 Breast cancer of upper-outer quadrant of right female breast 05/23/2024 Cancer Staging:Pathologic:Stage IA(pT1b, pN0, cM0, G1, ER+, FL-, HER2-, Oncotype DX score: 19) - Signed by Claudia Silveroi MD on 05/29/2024 Arthritis 05/23/2024 COPD (chronic obstructive pulmonary disease) Depression 05/23/2024 Ductal carcinoma in situ (DCIS) of left breast 1 07/23/2023 Hiatal hernia 05/23/2024 History of radiation therapy 05/23/2024 Hypercholesterolemia 05/23/2024 Pre-diabetes 05/23/2024 Encounters Date Type Department Care Team Description 08/21/2024 12:54 PM EST - 08/21/2024 11:59 PM EST Hospital Encounter [facility] Radiation Oncology [address] [place] [phone] Taylor Coulter NP Malignant neoplasm of upper-outer quadrant of right breast in female, estrogen receptor positive (CMS/HCC) (Primary Dx) Discharge Disposition: Home or Self Care 07/23/2024 10:45 AM EST - 07/23/2024 11:59 PM EST Hospital Encounter [facility] Radiation Oncology [address] [place] [phone] Taylor Coulter NP Malignant neoplasm of upper-outer quadrant of right breast in female, estrogen receptor positive (CMS/HCC) (Primary Dx) Discharge Disposition: Home or Self Care 07/23/2024 10:37 AM EST - 07/23/2024 11:59 PM EST Hospital Encounter [facility] Radiation Oncology [address] [place] [phone] Claudia Silverio MD Discharge Disposition: Home or Self Care 07/22/2024 10:39 AM EST - 07/22/2024 11:59 PM EST Hospital Encounter [facility] Radiation Oncology [address] [place] [phone] Discharge Disposition: Home or Self Care 07/19/2024 10:50 AM EST - 07/19/2024 11:59 PM EST Hospital Encounter [facility] Radiation Oncology [address] [place] [phone] Alondra Tang MD Malignant neoplasm of upper-outer quadrant of right breast in female, estrogen receptor positive (CMS/HCC) (Primary Dx) Discharge Disposition: Home or Self Care 07/19/2024 10:35 AM EST - 07/19/2024 11:59 PM EST Hospital Encounter [facility] Radiation Oncology [address] [place] [phone] Discharge Disposition: Home or Self Care 07/18/2024 10:51 AM EST - 07/18/2024 11:59 PM EST Hospital Encounter [facility] Radiation Oncology [address] [place] [phone] Alondra Tang MD Discharge Disposition: Home or Self Care 07/18/2024 10:37 AM EST - 07/18/2024 11:59 PM EST Hospital Encounter [facility] Radiation Oncology [address] [place] [phone] Discharge Disposition: Home or Self Care 07/17/2024 10:36 AM EST - 07/17/2024 11:59 PM EST Hospital Encounter [facility] Radiation Oncology [address] [place] [phone] Discharge Disposition: Home or Self Care 07/16/2024 10:36 AM EST - 07/16/2024 11:59 PM EST Hospital Encounter [facility] Radiation Oncology [address] [place] [phone] Discharge Disposition: Home or Self Care 07/15/2024 2:09 PM EST - 07/15/2024 11:59 PM EST Hospital Encounter [facility] Radiation Oncology [address] [place] [phone] Discharge Disposition: Home or Self Care 07/15/2024 10:38 AM EST - 07/15/2024 11:59 PM EST Hospital Encounter [facility] Radiation Oncology [address] [place] [phone] Discharge Disposition: Home or Self Care 07/12/2024 10:49 AM EST - 07/12/2024 11:59 PM EST Hospital Encounter [facility] Radiation Oncology [address] [place] [phone] Claudia Silverio MD Malignant neoplasm of upper-outer quadrant of right breast in female, estrogen receptor positive (CMS/HCC) (Primary Dx) Discharge Disposition: Home or Self Care 07/12/2024 10:39 AM EST - 07/12/2024 11:59 PM EST Hospital Encounter [facility] Radiation Oncology [address] [place] [phone] Discharge Disposition: Home or Self Care 07/11/2024 10:36 AM EST - 07/11/2024 11:59 PM EST Hospital Encounter [facility] Radiation Oncology [address] [place] [phone] Discharge Disposition: Home or Self Care 07/09/2024 10:38 AM EST - 07/09/2024 11:59 PM EST Hospital Encounter [facility] Radiation Oncology [address] [place] [phone] Discharge Disposition: Home or Self Care 07/08/2024 10:50 AM EST - 07/08/2024 11:59 PM EST Hospital Encounter [facility] Radiation Oncology [address] [place] [phone] Aaron Duncan MD Malignant neoplasm of upper-outer quadrant of right breast in female, estrogen receptor positive (CMS/HCC) (Primary Dx) Discharge Disposition: Home or Self Care 07/08/2024 10:39 AM EST - 07/08/2024 11:59 PM EST Hospital Encounter [facility] Radiation Oncology [address] [place] [phone] Discharge Disposition: Home or Self Care 07/05/2024 10:38 AM EST - 07/05/2024 11:59 PM EST Hospital Encounter [facility] Radiation Oncology [address] [place] [phone] Discharge Disposition: Home or Self Care 07/04/2024 10:42 AM EST - 07/04/2024 11:59 PM EST Hospital Encounter [facility] Radiation Oncology [address] [place] [phone] Discharge Disposition: Home or Self Care 07/02/2024 10:38 AM EST - 07/02/2024 11:59 PM EST Hospital Encounter [facility] Radiation Oncology [address] [place] [phone] Discharge Disposition: Home or Self Care 07/01/2024 10:36 AM EST - 07/01/2024 11:59 PM EST Hospital Encounter [facility] Radiation Oncology [address] [place] [phone] Discharge Disposition: Home or Self Care 06/28/2024 10:50 AM EST - 06/28/2024 11:59 PM EST Hospital Encounter [facility] Radiation Oncology [address] [place] [phone] Claudia Silverio MD Malignant neoplasm of upper-outer quadrant of right breast in female, estrogen receptor positive (CMS/HCC) (Primary Dx) Discharge Disposition: Home or Self Care 06/28/2024 10:40 AM EST - 06/28/2024 11:59 PM EST Hospital Encounter [facility] Radiation Oncology [address] [place] [phone] Discharge Disposition: Home or Self Care 06/27/2024 10:37 AM EST - 06/27/2024 11:59 PM EST Hospital Encounter [facility] Radiation Oncology [address] [place] [phone] Discharge Disposition: Home or Self Care 06/26/2024 10:37 AM EST - 06/26/2024 11:59 PM EST Hospital Encounter [facility] Radiation Oncology [address] [place] [phone] Discharge Disposition: Home or Self Care 06/25/2024 10:39 AM EST - 06/25/2024 11:59 PM EST Hospital Encounter [facility] Radiation Oncology [address] [place] [phone] Discharge Disposition: Home or Self Care 06/24/2024 11:41 AM EST - 06/24/2024 11:59 PM EST Hospital Encounter [facility] Radiation Oncology [address] [place] [phone] Negrito Avendaño MD Malignant neoplasm of upper-outer quadrant of right breast in female, estrogen receptor positive (CMS/HCC) (Primary Dx) Discharge Disposition: Home or Self Care 06/24/2024 11:30 AM EST - 06/24/2024 11:59 PM EST Hospital Encounter [facility] Radiation Oncology [address] [place] [phone] Discharge Disposition: Home or Self Care 06/21/2024 8:13 AM EST - 06/21/2024 11:59 PM EST Hospital Encounter [facility] Radiation Oncology [address] [place] [phone] Discharge Disposition: Home or Self Care 06/13/2024 9:38 AM EST - 06/13/2024 11:59 PM EST Hospital Encounter [facility] Radiation Oncology [address] [place] [phone] Claudia Silverio MD Malignant neoplasm of upper-outer quadrant of right breast in female, estrogen receptor positive (CMS/HCC) Discharge Disposition: Home or Self Care 06/13/2024 8:59 AM EST - 06/13/2024 11:59 PM EST Hospital Encounter [facility] Radiation Oncology [address] [place] [phone] Malignant neoplasm of upper-outer quadrant of right breast in female, estrogen receptor positive (CMS/HCC) (Primary Dx) Discharge Disposition: Home or Self Care 05/29/2024 2:26 PM EST - 05/29/2024 11:59 PM EST Hospital Encounter [facility] Radiation Oncology [address] [place] [phone] Claudia Silverio MD Malignant neoplasm of upper-outer quadrant of right breast in female, estrogen receptor positive (CMS/HCC) (Primary Dx) Discharge Disposition: Home or Self Care 05/29/2024 2:13 PM EST - 05/29/2024 11:59 PM EST Hospital Encounter [facility] Radiation Oncology [address] [place] [phone] Discharge Disposition: Home or Self Care from Last 3 Months Surgical History Surgery Date Site/Laterality Comments COLONOSCOPY BREAST LUMPECTOMY Left BREAST LUMPECTOMY 04/11/2024 Right BELT ABDOMINOPLASTY Medical History Medical History Date Comments Breast cancer (CMS/HCC) S/P laparoscopic fundoplication Shingles H/O abdominoplasty COPD (chronic obstructive pulmonary disease) (CM S/HCC) Invasive ductal carcinoma of right breast (CMS/H CC) 05/23/2024 Family History Medical History Relation Name Comments sweat gland carcinoma Brother Breast cancer Mother Relation Name Status Comments Brother Mother Social History Tobacco Use Types Packs/Day Years Used Date Smoking Tobacco: Former Cigarettes Smokeless Tobacco: Never Tobacco Cessation:Counseling Given: No Alcohol Use Standard Drinks/Week Comments Yes 7 (1 standard drink = 0.6 oz pur e alcohol) Comments Unknown Sex and Gender Information Value Date Recorded Sex Assigned at Not on file Legal Sex Female 8:48 AM EST Gender Identity Not on file Sexual Orientation Not on file Obstetrics History Para Term AB IAB SAB Ectopic Multiple Livin g Live Births 0 0 0 0 0 0 0 0 0 0 0 Last Filed Vital Signs Vital Sign Reading Time Taken Comments Blood Pressure 132/79 08/21/2024 1:01 PM EST Pulse 88 08/21/2024 1:01 PM EST Temperature 36.3 ??C (97.3 ??F) 08/21/2024 1:01 PM ES T Respiratory Rate 16 08/21/2024 1:01 PM EST Oxygen Saturation 97% 08/21/2024 1:01 PM EST Inhaled Oxygen Concentration - - Weight 73.6 kg (162 lb 3.2 oz) 08/21/2024 1:01 P M EST Height 157.5 cm (5' 2 ) 08/21/2024 1:01 PM EST Body Mass Index 29.67 08/21/2024 1:01 PM EST Plan of Treatment Health Maintenance Due Date Last Done Comments Breast Cancer Screening 1962 DTaP,Tdap,and Td Vaccines (1 - Tdap) 1981 Pneumococcal Vaccine: 50+ Years (1 of 2 - PCV) 1981 Pneumococcal Vaccine: Pediatrics (0 to 5 Years) and At-Risk Patients (6 to 64 Years) (1 of 2 - PCV) 1981 Zoster Vaccines (1 of 2) 1981 Cervical Cancer Screening: Pap Smear 10/08/1983 RSV Immunization Patients 60+ Years Old (1 - Risk 60-74 years 1-dose series) 2022 Cholesterol Screening (Lipid Panel) 05/13/2024 Colorectal Cancer Screening: Colonoscopy 05/13/2024 Depression Screening 05/13/2024 HIV Screening 05/13/2024 Hepatitis C Screening 05/13/2024 Social Influencers of Health Screening 05/13/2024 COVID-19 Vaccine Completed 04/03/2024, 09/2022, 03/29/2022, Additional history exists Influenza Vaccine Completed 04/03/2024, , 05/16/2022, Additional history exists HIB Vaccines Aged Out No longer eligi ble based on patient's age to complete this topic HPV Vaccines Aged Out No longer eligi ble based on patient's age to complete this topic Hepatitis A Vaccines Aged Out No long er eligible based on patient's age to complete this topic Hepatitis B Vaccines Aged Out No long er eligible based on patient's age to complete this topic IPV Vaccines Aged Out No longer eligi ble based on patient's age to complete this topic MMR Vaccines Aged Out No longer eligi ble based on patient's age to complete this topic Meningococcal ACWY Vaccine Aged Out N o longer eligible based on patient's age to complete this topic Meningococcal B Vacine Aged Out No lo nger eligible based on patient's age to complete this topic RSV Immunization Patients Under 20 months Aged Out No longer eligible based on patient's age to complete this topic Varicella Vaccines Aged Out No longer eligible based on patient's age to complete this topic Procedures Procedure Name Priority Date/Time Associated Diagnosis Comments RAD ONC MSQ TREATMENT SUMMARY Routine 07/23/2024 10:45 AM EST RAD ONC MSQ TREATMENT SUMMARY Routine 07/22/2024 10:51 AM EST RAD ONC MSQ TREATMENT SUMMARY Routine 07/19/2024 11:03 AM EST RAD ONC MSQ TREATMENT SUMMARY Routine 07/18/2024 10:54 AM EST RAD ONC MSQ TREATMENT SUMMARY Routine 07/17/2024 10:56 AM EST RAD ONC MSQ TREATMENT SUMMARY Routine 07/16/2024 10:55 AM EST RAD ONC MSQ TREATMENT SUMMARY Routine 07/15/2024 10:48 AM EST RAD ONC MSQ TREATMENT SUMMARY Routine 07/12/2024 10:49 AM EST RAD ONC MSQ TREATMENT SUMMARY Routine 07/11/2024 10:47 AM EST RAD ONC MSQ TREATMENT SUMMARY Routine 07/09/2024 11:05 AM EST RAD ONC MSQ TREATMENT SUMMARY Routine 07/08/2024 10:52 AM EST RAD ONC MSQ TREATMENT SUMMARY Routine 07/05/2024 10:49 AM EST RAD ONC MSQ TREATMENT SUMMARY Routine 07/04/2024 10:53 AM EST RAD ONC MSQ TREATMENT SUMMARY Routine 07/02/2024 10:57 AM EST RAD ONC MSQ TREATMENT SUMMARY Routine 07/01/2024 10:55 AM EST RAD ONC MSQ TREATMENT SUMMARY Routine 06/28/2024 10:50 AM EST RAD ONC MSQ TREATMENT SUMMARY Routine 06/27/2024 10:49 AM EST RAD ONC MSQ TREATMENT SUMMARY Routine 06/26/2024 10:51 AM EST RAD ONC MSQ TREATMENT SUMMARY Routine 06/25/2024 10:50 AM EST from Last 3 Months Results * Rad Onc Msq Treatment Summary (07/23/2024 10:45 AM EST) Treatment Site Right Breast Boost MOSAIQ RADIATION ONCOLOGY Course Number 2 MOSAIQ RADIATION ONCOLOGY Prescribed Fractional Dose 250 cGray MOSAIQ RADIATION ONCOLOGY Prescribed Total Dose 1,000 cGray MOSAIQ RADIATION ONCOLOGY Actual Fractions Delivered 4 MOSAIQ RADIATION ONCOLOGY Actual Session Delivered Dose 250 cGray MOSAIQ RADIATION ONCOLOGY Actual Total Dose 1,000 cGray MOSAIQ RADIATION ONCOLOGY Prescribed Technique Electron boost MOSAIQ RADIATION ONCOLOGY Elapsed Days 5 MOSAIQ RADIATION ONCOLOGY Start Date 07/18/2024 MOSAIQ RADIATION ONCOLOGY Last Date 07/23/2024 MOSAIQ RADIATION ONCOLOGY Prescribed Number of Fractions 4 MOSAIQ RADIATION ONCOLOGY 07/23/2024 10:4 5 AM EST Physician Radiation Oncology RADIATION ONCOLO GY ORDERABLES Final Result MOSAIQ RADIATION ONCOLOGY * Rad Onc Msq Treatment Summary (07/22/2024 10:51 AM EST) Treatment Site Right Breast Boost MOSAIQ RADIATION ONCOLOGY Course Number 2 MOSAIQ RADIATION ONCOLOGY Prescribed Fractional Dose 250 cGray MOSAIQ RADIATION ONCOLOGY Prescribed Total Dose 1,000 cGray MOSAIQ RADIATION ONCOLOGY Actual Fractions Delivered 3 MOSAIQ RADIATION ONCOLOGY Actual Session Delivered Dose 250 cGray MOSAIQ RADIATION ONCOLOGY Actual Total Dose 750 cGray MOSAIQ RADIATION ONCOLOGY Prescribed Technique Electron boost MOSAIQ RADIATION ONCOLOGY Elapsed Days 4 MOSAIQ RADIATION ONCOLOGY Start Date 07/18/2024 MOSAIQ RADIATION ONCOLOGY Last Date 07/22/2024 MOSAIQ RADIATION ONCOLOGY Prescribed Number of Fractions 4 MOSAIQ RADIATION ONCOLOGY 07/22/2024 10:5 1 AM EST Physician Radiation Oncology RADIATION ONCFABRIZIO GY ORDERABLES Final Result MOSAIQ RADIATION ONCOLOGY * Rad Onc Msq Treatment Summary (07/19/2024 11:03 AM EST) Treatment Site Right Breast Boost MOSAIQ RADIATION ONCOLOGY Course Number 2 MOSAIQ RADIATION ONCOLOGY Prescribed Fractional Dose 250 cGray MOSAIQ RADIATION ONCOLOGY Prescribed Total Dose 1,000 cGray MOSAIQ RADIATION ONCOLOGY Actual Fractions Delivered 2 MOSAIQ RADIATION ONCOLOGY Actual Session Delivered Dose 250 cGray MOSAIQ RADIATION ONCOLOGY Actual Total Dose 500 cGray MOSAIQ RADIATION ONCOLOGY Prescribed Technique Electron boost MOSAIQ RADIATION ONCOLOGY Elapsed Days 1 MOSAIQ RADIATION ONCOLOGY Start Date 07/18/2024 MOSAIQ RADIATION ONCOLOGY Last Date 07/19/2024 MOSAIQ RADIATION ONCOLOGY Prescribed Number of Fractions 4 MOSAIQ RADIATION ONCOLOGY 07/19/2024 11:0 3 AM EST us Physician Radiation Oncology RADIATION ONCOLO GY ORDERABLES Final Result MOSAIQ RADIATION ONCOLOGY * Rad Onc Msq Treatment Summary (07/18/2024 10:54 AM EST) Treatment Site Right Breast Boost MOSAIQ RADIATION ONCOLOGY Course Number 2 MOSAIQ RADIATION ONCOLOGY Prescribed Fractional Dose 250 cGray MOSAIQ RADIATION ONCOLOGY Prescribed Total Dose 1,000 cGray MOSAIQ RADIATION ONCOLOGY Actual Fractions Delivered 1 MOSAIQ RADIATION ONCOLOGY Actual Session Delivered Dose 250 cGray MOSAIQ RADIATION ONCOLOGY Actual Total Dose 250 cGray MOSAIQ RADIATION ONCOLOGY Prescribed Technique Electron boost MOSAIQ RADIATION ONCOLOGY Elapsed Days 0 MOSAIQ RADIATION ONCOLOGY Start Date 07/18/2024 MOSAIQ RADIATION ONCOLOGY Last Date 07/18/2024 MOSAIQ RADIATION ONCOLOGY Prescribed Number of Fractions 4 MOSAIQ RADIATION ONCOLOGY 07/18/2024 10:5 4 AM EST Physician Radiation Oncology RADIATION ONCOLO GY ORDERABLES Final Result Performing Organization Address City/[facility]/ZIP Co de Phone Number MOSAIQ RADIATION ONCOLOGY * Rad Onc Msq Treatment Summary (07/17/2024 10:56 AM EST) Treatment Site Right Breast MO SAIQ RADIATION ONCOLOGY Course Number 2 MOSAIQ RADIATION ONCOLOGY Prescribed Fractional Dose 267 cGray MOSAIQ RADIATION ONCOLOGY Prescribed Total Dose 4,272 cGray MOSAIQ RADIATION ONCOLOGY Actual Fractions Delivered 16 MOSAIQ RADIATION ONCOLOGY Actual Session Delivered Dose 267 cGray MOSAIQ RADIATION ONCOLOGY Actual Total Dose 4,272 cGray MOSAIQ RADIATION ONCOLOGY Prescribed Technique Tangents MOSAIQ RADIATION ONCOLOGY Elapsed Days 23 MOSAIQ RADIATION ONCOLOGY Start Date 06/24/2024 MOSAIQ RADIATION ONCOLOGY Last Date 07/17/2024 MOSAIQ RADIATION ONCOLOGY Prescribed Number of Fractions 16 MOSAIQ RADIATION ONCOLOGY 07/17/2024 10:5 6 AM EST Physician Radiation Oncology RADIATION ONCOLO GY ORDERABLES Final Result YUEIQ RADIATION ONCOLOGY * Rad Onc Msq Treatment Summary (07/16/2024 10:55 AM EST) Treatment Site Right Breast MO SAIQ RADIATION ONCOLOGY Course Number 2 MOSAIQ RADIATION ONCOLOGY Prescribed Fractional Dose 267 cGray MOSAIQ RADIATION ONCOLOGY Prescribed Total Dose 4,272 cGray MOSAIQ RADIATION ONCOLOGY Actual Fractions Delivered 15 MOSAIQ RADIATION ONCOLOGY Actual Session Delivered Dose 267 cGray MOSAIQ RADIATION ONCOLOGY Actual Total Dose 4,005 cGray MOSAIQ RADIATION ONCOLOGY Prescribed Technique Tangents MOSAIQ RADIATION ONCOLOGY Elapsed Days 22 MOSAIQ RADIATION ONCOLOGY Start Date 06/24/2024 MOSAIQ RADIATION ONCOLOGY Last Date 07/16/2024 MOSAIQ RADIATION ONCOLOGY Prescribed Number of Fractions 16 MOSAIQ RADIATION ONCOLOGY 07/16/2024 10:5 5 AM EST Physician Radiation Oncology RADIATION ONCFABRIZIO GY ORDERABLES Final Result MOSAIQ RADIATION ONCOLOGY * Rad Onc Msq Treatment Summary (07/15/2024 10:48 AM EST) Treatment Site Right Breast MO SAIQ RADIATION ONCOLOGY Course Number 2 MOSAIQ RADIATION ONCOLOGY Prescribed Fractional Dose 267 cGray MOSAIQ RADIATION ONCOLOGY Prescribed Total Dose 4,272 cGray MOSAIQ RADIATION ONCOLOGY Actual Fractions Delivered 14 MOSAIQ RADIATION ONCOLOGY Actual Session Delivered Dose 267 cGray MOSAIQ RADIATION ONCOLOGY Actual Total Dose 3,738 cGray MOSAIQ RADIATION ONCOLOGY Prescribed Technique Tangents MOSAIQ RADIATION ONCOLOGY Elapsed Days 21 MOSAIQ RADIATION ONCOLOGY Start Date 06/24/2024 MOSAIQ RADIATION ONCOLOGY Last Date 07/15/2024 MOSAIQ RADIATION ONCOLOGY Prescribed Number of Fractions 16 MOSAIQ RADIATION ONCOLOGY 07/15/2024 10:4 8 AM EST Physician Radiation Oncology RADIATION ONCFABRIZIO GY ORDERABLES Final Result MOSAIQ RADIATION ONCOLOGY * Rad Onc Msq Treatment Summary (07/12/2024 10:49 AM EST) Treatment Site Right Breast MO SAIQ RADIATION ONCOLOGY Course Number 2 MOSAIQ RADIATION ONCOLOGY Prescribed Fractional Dose 267 cGray MOSAIQ RADIATION ONCOLOGY Prescribed Total Dose 4,272 cGray MOSAIQ RADIATION ONCOLOGY Actual Fractions Delivered 13 MOSAIQ RADIATION ONCOLOGY Actual Session Delivered Dose 267 cGray MOSAIQ RADIATION ONCOLOGY Actual Total Dose 3,471 cGray MOSAIQ RADIATION ONCOLOGY Prescribed Technique Tangents MOSAIQ RADIATION ONCOLOGY Elapsed Days 18 MOSAIQ RADIATION ONCOLOGY Start Date 06/24/2024 MOSAIQ RADIATION ONCOLOGY Last Date 07/12/2024 MOSAIQ RADIATION ONCOLOGY Prescribed Number of Fractions 16 MOSAIQ RADIATION ONCOLOGY 07/12/2024 10:4 9 AM EST Physician Radiation Oncology RADIATION ONCFABRIZIO GY ORDERABLES Final Result MOSAIQ RADIATION ONCOLOGY * Rad Onc Msq Treatment Summary (07/11/2024 10:47 AM EST) Treatment Site Right Breast MO SAIQ RADIATION ONCOLOGY Course Number 2 MOSAIQ RADIATION ONCOLOGY Prescribed Fractional Dose 267 cGray MOSAIQ RADIATION ONCOLOGY Prescribed Total Dose 4,272 cGray MOSAIQ RADIATION ONCOLOGY Actual Fractions Delivered 12 MOSAIQ RADIATION ONCOLOGY Actual Session Delivered Dose 267 cGray MOSAIQ RADIATION ONCOLOGY Actual Total Dose 3,204 cGray MOSAIQ RADIATION ONCOLOGY Prescribed Technique Tangents MOSAIQ RADIATION ONCOLOGY Elapsed Days 17 MOSAIQ RADIATION ONCOLOGY Start Date 06/24/2024 MOSAIQ RADIATION ONCOLOGY Last Date 07/11/2024 MOSAIQ RADIATION ONCOLOGY Prescribed Number of Fractions 16 MOSAIQ RADIATION ONCOLOGY 07/11/2024 10:4 7 AM EST Physician Radiation Oncology RADIATION ONCFABRIZIO GY ORDERABLES Final Result MOSAIQ RADIATION ONCOLOGY * Rad Onc Msq Treatment Summary (07/09/2024 11:05 AM EST) Treatment Site Right Breast MO SAIQ RADIATION ONCOLOGY Course Number 2 MOSAIQ RADIATION ONCOLOGY Prescribed Fractional Dose 267 cGray MOSAIQ RADIATION ONCOLOGY Prescribed Total Dose 4,272 cGray MOSAIQ RADIATION ONCOLOGY Actual Fractions Delivered 11 MOSAIQ RADIATION ONCOLOGY Actual Session Delivered Dose 267 cGray MOSAIQ RADIATION ONCOLOGY Actual Total Dose 2,937 cGray MOSAIQ RADIATION ONCOLOGY Prescribed Technique Tangents MOSAIQ RADIATION ONCOLOGY Elapsed Days 15 MOSAIQ RADIATION ONCOLOGY Start Date 06/24/2024 MOSAIQ RADIATION ONCOLOGY Last Date 07/09/2024 MOSAIQ RADIATION ONCOLOGY Prescribed Number of Fractions 16 MOSAIQ RADIATION ONCOLOGY 07/09/2024 11:0 5 AM EST Physician Radiation Oncology RADIATION ONCOLO GY ORDERABLES Final Result MOSAIQ RADIATION ONCOLOGY * Rad Onc Msq Treatment Summary (07/08/2024 10:52 AM EST) Treatment Site Right Breast MO SAIQ RADIATION ONCOLOGY Course Number 2 MOSAIQ RADIATION ONCOLOGY Prescribed Fractional Dose 267 cGray MOSAIQ RADIATION ONCOLOGY Prescribed Total Dose 4,272 cGray MOSAIQ RADIATION ONCOLOGY Actual Fractions Delivered 10 MOSAIQ RADIATION ONCOLOGY Actual Session Delivered Dose 267 cGray MOSAIQ RADIATION ONCOLOGY Actual Total Dose 2,670 cGray MOSAIQ RADIATION ONCOLOGY Prescribed Technique Tangents MOSAIQ RADIATION ONCOLOGY Elapsed Days 14 MOSAIQ RADIATION ONCOLOGY Start Date 06/24/2024 MOSAIQ RADIATION ONCOLOGY Last Date 07/08/2024 MOSAIQ RADIATION ONCOLOGY Prescribed Number of Fractions 16 MOSAIQ RADIATION ONCOLOGY 07/08/2024 10:5 2 AM EST Physician Radiation Oncology RADIATION ONCFABRIZIO GY ORDERABLES Final Result MOSAIQ RADIATION ONCOLOGY * Rad Onc Msq Treatment Summary (07/05/2024 10:49 AM EST) Treatment Site Right Breast MO SAIQ RADIATION ONCOLOGY Course Number 2 MOSAIQ RADIATION ONCOLOGY Prescribed Fractional Dose 267 cGray MOSAIQ RADIATION ONCOLOGY Prescribed Total Dose 4,272 cGray MOSAIQ RADIATION ONCOLOGY Actual Fractions Delivered 9 MOSAIQ RADIATION ONCOLOGY Actual Session Delivered Dose 267 cGray MOSAIQ RADIATION ONCOLOGY Actual Total Dose 2,403 cGray MOSAIQ RADIATION ONCOLOGY Prescribed Technique Tangents MOSAIQ RADIATION ONCOLOGY Elapsed Days 11 MOSAIQ RADIATION ONCOLOGY Start Date 06/24/2024 MOSAIQ RADIATION ONCOLOGY Last Date 07/05/2024 MOSAIQ RADIATION ONCOLOGY Prescribed Number of Fractions 16 MOSAIQ RADIATION ONCOLOGY 07/05/2024 10:4 9 AM EST Physician Radiation Oncology RADIATION ONCOLO GY ORDERABLES Final Result MOSAIQ RADIATION ONCOLOGY * Rad Onc Msq Treatment Summary (07/04/2024 10:53 AM EST) Treatment Site Right Breast MO SAIQ RADIATION ONCOLOGY Course Number 2 MOSAIQ RADIATION ONCOLOGY Prescribed Fractional Dose 267 cGray MOSAIQ RADIATION ONCOLOGY Prescribed Total Dose 4,272 cGray MOSAIQ RADIATION ONCOLOGY Actual Fractions Delivered 8 MOSAIQ RADIATION ONCOLOGY Actual Session Delivered Dose 267 cGray MOSAIQ RADIATION ONCOLOGY Actual Total Dose 2,136 cGray MOSAIQ RADIATION ONCOLOGY Prescribed Technique Tangents MOSAIQ RADIATION ONCOLOGY Elapsed Days 10 MOSAIQ RADIATION ONCOLOGY Start Date 06/24/2024 MOSAIQ RADIATION ONCOLOGY Last Date 07/04/2024 MOSAIQ RADIATION ONCOLOGY Prescribed Number of Fractions 16 MOSAIQ RADIATION ONCOLOGY 07/04/2024 10:5 3 AM EST Physician Radiation Oncology RADIATION ONCOLO GY ORDERABLES Final Result MOSAIQ RADIATION ONCOLOGY * Rad Onc Msq Treatment Summary (07/02/2024 10:57 AM EST) Treatment Site Right Breast MO SAIQ RADIATION ONCOLOGY Course Number 2 MOSAIQ RADIATION ONCOLOGY Prescribed Fractional Dose 267 cGray MOSAIQ RADIATION ONCOLOGY Prescribed Total Dose 4,272 cGray MOSAIQ RADIATION ONCOLOGY Actual Fractions Delivered 7 MOSAIQ RADIATION ONCOLOGY Actual Session Delivered Dose 267 cGray MOSAIQ RADIATION ONCOLOGY Actual Total Dose 1,869 cGray MOSAIQ RADIATION ONCOLOGY Prescribed Technique Tangents MOSAIQ RADIATION ONCOLOGY Elapsed Days 8 MOSAIQ RADIATION ONCOLOGY Start Date 06/24/2024 MOSAIQ RADIATION ONCOLOGY Last Date 07/02/2024 MOSAIQ RADIATION ONCOLOGY Prescribed Number of Fractions 16 MOSAIQ RADIATION ONCOLOGY 07/02/2024 10:5 7 AM EST Physician Radiation Oncology RADIATION ONCOLO GY ORDERABLES Final Result MOSAIQ RADIATION ONCOLOGY * Rad Onc Msq Treatment Summary (07/01/2024 10:55 AM EST) Treatment Site Right Breast MO SAIQ RADIATION ONCOLOGY Course Number 2 MOSAIQ RADIATION ONCOLOGY Prescribed Fractional Dose 267 cGray MOSAIQ RADIATION ONCOLOGY Prescribed Total Dose 4,272 cGray MOSAIQ RADIATION ONCOLOGY Actual Fractions Delivered 6 MOSAIQ RADIATION ONCOLOGY Actual Session Delivered Dose 267 cGray MOSAIQ RADIATION ONCOLOGY Actual Total Dose 1,602 cGray MOSAIQ RADIATION ONCOLOGY Prescribed Technique Tangents MOSAIQ RADIATION ONCOLOGY Elapsed Days 7 MOSAIQ RADIATION ONCOLOGY Start Date 06/24/2024 MOSAIQ RADIATION ONCOLOGY Last Date 07/01/2024 MOSAIQ RADIATION ONCOLOGY Prescribed Number of Fractions 16 MOSAIQ RADIATION ONCOLOGY 07/01/2024 10:5 5 AM EST Physician Radiation Oncology RADIATION ONCFABRIZIO GY ORDERABLES Final Result MOSAIQ RADIATION ONCOLOGY * Rad Onc Msq Treatment Summary (06/28/2024 10:50 AM EST) Treatment Site Right Breast MO SAIQ RADIATION ONCOLOGY Course Number 2 MOSAIQ RADIATION ONCOLOGY Prescribed Fractional Dose 267 cGray MOSAIQ RADIATION ONCOLOGY Prescribed Total Dose 4,272 cGray MOSAIQ RADIATION ONCOLOGY Actual Fractions Delivered 5 MOSAIQ RADIATION ONCOLOGY Actual Session Delivered Dose 267 cGray MOSAIQ RADIATION ONCOLOGY Actual Total Dose 1,335 cGray MOSAIQ RADIATION ONCOLOGY Prescribed Technique Tangents MOSAIQ RADIATION ONCOLOGY Elapsed Days 4 MOSAIQ RADIATION ONCOLOGY Start Date 06/24/2024 MOSAIQ RADIATION ONCOLOGY Last Date 06/28/2024 MOSAIQ RADIATION ONCOLOGY Prescribed Number of Fractions 16 MOSAIQ RADIATION ONCOLOGY 06/28/2024 10:5 0 AM EST Physician Radiation Oncology RADIATION ONCFABRIZIO GY ORDERABLES Final Result MOSAIQ RADIATION ONCOLOGY * Rad Onc Msq Treatment Summary (06/27/2024 10:49 AM EST) Treatment Site Right Breast MO SAIQ RADIATION ONCOLOGY Course Number 2 MOSAIQ RADIATION ONCOLOGY Prescribed Fractional Dose 267 cGray MOSAIQ RADIATION ONCOLOGY Prescribed Total Dose 4,272 cGray MOSAIQ RADIATION ONCOLOGY Actual Fractions Delivered 4 MOSAIQ RADIATION ONCOLOGY Actual Session Delivered Dose 267 cGray MOSAIQ RADIATION ONCOLOGY Actual Total Dose 1,068 cGray MOSAIQ RADIATION ONCOLOGY Prescribed Technique Tangents MOSAIQ RADIATION ONCOLOGY Elapsed Days 3 MOSAIQ RADIATION ONCOLOGY Start Date 06/24/2024 MOSAIQ RADIATION ONCOLOGY Last Date 06/27/2024 MOSAIQ RADIATION ONCOLOGY Prescribed Number of Fractions 16 MOSAIQ RADIATION ONCOLOGY 06/27/2024 10:4 9 AM EST Physician Radiation Oncology RADIATION ONCOLO GY ORDERABLES Final Result MOSAIQ RADIATION ONCOLOGY * Rad Onc Msq Treatment Summary (06/26/2024 10:51 AM EST) Treatment Site Right Breast MO SAIQ RADIATION ONCOLOGY Course Number 2 MOSAIQ RADIATION ONCOLOGY Prescribed Fractional Dose 267 cGray MOSAIQ RADIATION ONCOLOGY Prescribed Total Dose 4,272 cGray MOSAIQ RADIATION ONCOLOGY Actual Fractions Delivered 3 MOSAIQ RADIATION ONCOLOGY Actual Session Delivered Dose 267 cGray MOSAIQ RADIATION ONCOLOGY Actual Total Dose 801 cGray MOSAIQ RADIATION ONCOLOGY Prescribed Technique Tangents MOSAIQ RADIATION ONCOLOGY Elapsed Days 2 MOSAIQ RADIATION ONCOLOGY Start Date 06/24/2024 MOSAIQ RADIATION ONCOLOGY Last Date 06/26/2024 MOSAIQ RADIATION ONCOLOGY Prescribed Number of Fractions 16 MOSAIQ RADIATION ONCOLOGY 06/26/2024 10:5 1 AM EST Physician Radiation Oncology RADIATION ONCFABRIZIO GY ORDERABLES Final Result MOSAIQ RADIATION ONCOLOGY * Rad Onc Msq Treatment Summary (06/25/2024 10:50 AM EST) Treatment Site Right Breast MO SAIQ RADIATION ONCOLOGY Course Number 2 MOSAIQ RADIATION ONCOLOGY Prescribed Fractional Dose 267 cGray MOSAIQ RADIATION ONCOLOGY Prescribed Total Dose 4,272 cGray MOSAIQ RADIATION ONCOLOGY Actual Fractions Delivered 2 MOSAIQ RADIATION ONCOLOGY Actual Session Delivered Dose 267 cGray MOSAIQ RADIATION ONCOLOGY Actual Total Dose 534 cGray MOSAIQ RADIATION ONCOLOGY Prescribed Technique Tangents MOSAIQ RADIATION ONCOLOGY Elapsed Days 1 MOSAIQ RADIATION ONCOLOGY Start Date 06/24/2024 MOSAIQ RADIATION ONCOLOGY Last Date 06/25/2024 MOSAIQ RADIATION ONCOLOGY Prescribed Number of Fractions 16 MOSAIQ RADIATION ONCOLOGY 06/25/2024 10:5 0 AM EST us Physician Radiation Oncology RADIATION ONCOLO GY ORDERABLES Final Result YUEIQ RADIATION ONCOLOGY from Last 3 Months Insurance [facility] [employer] Care Teams Fagot Maker Relationship Specialty Start Date End Date Hector Cadet MD [address] [place] [address] PCP - General Internal Medicine 05/23/24
--- OUTSIDE RECORDS SUMMARY | 2024-08-27 10:17 | XMS_ITS | Encounter Summary ---
Author Organization [facility] Address [address] [place] [address] Care Team Providers Care Hospice Care Sales Consultant Name Role Phone Hector Cadet MD Primary Care Provider [phone] Reason for Visit * Reason Comments Follow-up Encounter Details Date Type Department Care Team (Latest Contact Info) Description 08/21/2024 12:54 PM EST - 08/21/2024 11:59 PM EST Hospital Encounter [facility] Radiation Oncology [address] [facility] [address] [place] [address] Taylor Coulter NP [address] [place] [phone] Malignant neoplasm of upper-outer quadrant of right breast in female, estrogen receptor positive (CMS/HCC) (Primary Dx) Discharge Disposition: Home or Self Care Social History Tobacco Use Types Packs/Day Years Used Date Smoking Tobacco: Former Cigarettes Smokeless Tobacco: Never Alcohol Use Standard Drinks/Week Comments Yes 7 (1 standard drink = 0.6 oz pur e alcohol) Comments Unknown Sex and Gender Information Value Date Recorded Sex Assigned at Not on file Legal Sex Female 8:48 AM EST Gender Identity Not on file Sexual Orientation Not on file documented as of this encounter Last Filed Vital Signs Vital Sign Reading [...] Mass Index 29.67 08/21/2024 1:01 PM EST documented in this encounter Medications at Time of Discharge anastrozole (ARIMIDEX) 1 mg Take 1 tablet (1 mg total) by mouth 1 (one) time each day Swallow whole with a drink of water. atorvastatin (LIPITOR) 20 mg tablet Take 1 tablet (20 mg total) by mouth at bedtime. hydrOXYzine HCL (ATARAX) 10 mg tablet Take 1 tablet (10 mg total) by mouth at bedtime. naproxen (EC NAPROSYN) 500 mg EC tablet Take 1 tablet (500 mg total) by mouth 2 (two) times a day. Do not crush, chew, or split. sertraline (ZOLOFT) 100 mg tablet Take 1.5 tablets (150 mg total) by mouth 1 (one) time each day. traZODone (DESYREL) 100 mg tablet Take 2 tablets (200 mg total) by mouth at bedtime. documented as of this encounter Discharge Disposition Disposition Code Departure Means Destination Home or Self Care documented in this encounter Progress Notes * Taylor Coulter NP - 08/21/2024 1:00 PM EST [address] [phone] RADIATION ONCOLOGY FOLLOW-UP Staff Physician: Taylor Coulter NP Requesting Physician: Bal Callahan MD Date of Service: 08/21/2024 Accompanied by: Partner Diagnosis: No diagnosis found. Stage: Cancer Staging Breast cancer of upper-outer quadrant of right female breast (CMS/HCC) Staging form: Breast, AJCC 8th Edition - Pathologic: Stage IA (pT1b, pN0, cM0, G1, ER+, TX-, HER2-, Oncotype DX score: 19) - Signed by Claudia Silverio MD on 05/29/2024 Prior treatment: 3D EHS TEACHER: Right Breast Treatment Period Technique Fraction Dose Fractions Total Dose Course 2 06/24/2024-07/23/2024 (days elapsed: 29) Right Breast 06/24/2024-07/17/2024 Tangents 267 / 267 cGy 4272 / 4,272 cGy Right Breast Boost 07/18/2024-07/23/2024 Electron boost 250 / 250 cGy 1000 / 1,000 cGy HPI: Shelia Gil returns for follow-up evaluation one month post radiation therapy. Overall, doing well. Nipple remains sensitive. She is taking Anastrozole with hot flashes and occasional dizziness.Fatigue has been improving. Using Luberderm. HPI ROS: Review of Systems Constitutional: Positive for fatigue. Endocrine: Positive for hot flashes. Neurological: Negative for headaches. Breast: Positive for breast pain (nipple sensitivity). Medications: Current Outpatient Medications: anastrozole (ARIMIDEX) 1 mg, Take 1 tablet (1 mg total) by mouth 1 (one) time each day Swallow whole with a drink of water., Disp: , Rfl: atorvastatin (LIPITOR) 20 mg tablet, Take 1 tablet (20 mg total) by mouth at bedtime., Disp: , Rfl: hydrOXYzine HCL (ATARAX) 10 mg tablet, Take 1 tablet (10 mg total) by mouth at bedtime., Disp: , Rfl: naproxen (EC NAPROSYN) 500 mg EC tablet, Take 1 tablet (500 mg total) by mouth 2 (two) times a day.Do not crush, chew, or split., Disp: , Rfl: sertraline (ZOLOFT) 100 mg tablet, Take 1.5 tablets (150 mg total) by mouth 1 (one) time each day.,Disp: , Rfl: traZODone (DESYREL) 100 mg tablet, Take 2 tablets (200 mg total) by mouth at bedtime., Disp: , Rfl: Imported vital signs, weight Visit Vitals Smoking Status Former No data recorded Physical Exam: Physical Exam Vitals reviewed. Constitutional: Appearance: Normal appearance. HENT: Head: Normocephalic. Skin: General: Skin is warm and dry. Neurological: Mental Status: She is alert and oriented to person, place, and time. Mental status is at baseline. Psychiatric: Mood and Affect: Mood normal. Behavior: Behavior normal. Thought Content: Thought content normal. Judgment: Judgment normal. Impression: Overall healing well from radiation therapy. Self-breast exams encouraged. Resume annual mammograms. She states she has one for November. Mild tanning will improve overtime. Moisturize as needed. Anastrozole will be for 5 years. Eating a well rounded diet and remaining active is encouraged. Adequate hydration strongly encouraged. If the cancer was to return in the treated area we would not repeat radiation. Likely the treatmentwould be a mastectomy. All questions were answered at this time. Plan: Follow-up as needed with radiation therapy. 08/27/2024 Dr. Bernardino Cintron. 09/2024 Dr. Courtney Coulter, FRITZ 08/20/24 2:55 PM EST documented in this encounter Plan of Treatment Not on file documented as of this encounter Visit Diagnoses Diagnosis Malignant neoplasm of upper-outer quadrant of right breast in female, estrogen receptor positive (CMS/HCC)- Primary documented in this encounter Care Teams Hospice Care Sales Consultant Relationship Specialty Start Date End Date Hector Cadet MD [address] [place] PCP - General Internal Medicine 05/23/24 documented as of this encounter
== END 2024-08-27 10:02 | disposition home or self-care (01) ==
PROVIDERS: PCP Internal Medicine; Visit Provider Surgery
DX: C50.911 Malignant neoplasm of unspecified site of right female breast (principal)
CPT/HCPCS: 99213

== ENCOUNTER → 2024-08-27 09:29 | Outpatient (BNVA) | payer OTHER, SELFPAY | PROVIDERS: PCP Internal Medicine; Visit Provider Surgery | DX: D05.12 Intraductal carcinoma in situ of left breast (principal); C50.911 Malignant neoplasm of unspecified site of right female breast | CPT/HCPCS: 99212 ==

== ENCOUNTER 2024-09-12 15:13 | Inpatient (IN) | payer OTHER, SELFPAY ==
[2024-09-12 15:35] VITALS: BP 163/69; PULSE 107; RESP 20; TEMP 37; O2SAT 100; BMI 28.0
--- NOTE | 2024-09-12 15:36 | ED_ITS ---
HPI - General Adult General Chief complaint: Recheck/Abnormal Lab/Rx Stated complaint: high blood sugar 658 Time Seen by Provider: 09/12/24 15:59 Source: patient Mode of arrival: ambulatory Limitations: no limitations History of Present Illness ED Provider: laina sharma HPI narrative: patient is A 63-year-old female who presents emergency department for evaluation. She was at her oncologist office today; Dr. Callahan routine follow- up, states that she has been treated for breast cancer s/p radiation therapy with lymphadenectomy on the right. Had routine blood work obtained, was called back to be advised that she was anemic but also that her blood glucose level was elevated in the 600s. She states prior to this she was a prediabetic , not on any oral antihyperglycemics. Not on any corticosteroid. She does admit that over the past week she has noticed having increased thirst and subsequently notice she was urinating more as she was drinking more, she denies having increased hunger. Related Data Home Medications ?Medication ?Instructions ?Recorded ?Confirmed atorvastatin 20 mg tablet 20 mg PO BEDTIME 04/16/20 09/12/24 naproxen 500 mg tablet 500 mg PO BID 04/16/20 09/12/24 sertraline 100 mg tablet 150 mg PO DAILY 04/16/20 09/12/24 trazodone 100 mg tablet 200 mg PO BEDTIME PRN Insomnia 04/16/20 09/12/24 hydroxyzine pamoate 25 mg capsule 25 mg PO BEDTIME PRN 09/12/24 09/12/24 Anxiety/Itching Previous Rx's ?Medication ?Instructions ?Recorded cholecalciferol (vitamin D3) 125 125 mcg PO DAILY #30 tabs 05/07/24 mcg (5,000 unit) tablet (Vitamin D3) anastrozole 1 mg tablet (Arimidex) 1 mg PO DAILY #90 tabs 05/31/24 Allergies Allergy/AdvReac Type Severity Reaction Status Date / Time codeine [CODEINE] Allergy Intermediate NAUSEA & Verified 09/12/24 15:40 VOMITING erythromycin base Allergy Intermediate NAUSEA & Verified 09/12/24 15:40 [ERYTHROMYCIN BASE] VOMITING Sulfa (Sulfonamide Allergy Intermediate HIVES Verified 09/12/24 15:40 Antibiotics) [SULFA (SULFONAMIDE ANTIBIOTICS)] Review of Systems 2 Review of Systems: Yes all other systems are reviewed and are negative PMFSH Past Medical History Attestation statement: The following information was validated with the patient. Source: old records reviewed Medical History Hiatal hernia Arthritis Pre-diabetes History of radiation therapy Ductal carcinoma in situ (DCIS) of left breast Depression Hypercholesterolemia COPD (chronic obstructive pulmonary disease) Surgical History History of lumpectomy of right breast (04/11/24) Hx of abdominoplasty Hx of excision of mass H/O colonoscopy History of lumpectomy of left breast Status post laparoscopic Shireen fundoplication (~08/2009) Family History Family History Mother History of breast cancer Brother Sweat gland carcinoma Social History Social History Household Members: Spouse Are you a primary tree care foreman to a significant other at home: No Alcohol intake: current Alcohol intake frequency: 0-2 drinks per day Alcohol type: wine Patient Tobacco Use Status: Former Tobacco user Tobacco use type: Cigarette Cigarette Packs Per Day: 1 Years Smoked: 25 Smoked in Last 30 Days: No Substance Use Type: Marijuana Advance Directives: No Advance Directives Information Provided: No Patient : No service: No Current occupational status: retired Physical Exam ED Vital Signs: Vital Signs - 24 hr 09/12/24 15:35 09/12/24 17:51 Temperature 98.6 F Pulse Rate 107 H 95 Respiratory Rate 20 18 Blood Pressure 163/69 H 156/77 H Pulse Oximetry 100 99 Oxygen Delivery Method Room Air Room Air BMI result Body Mass Index 28.0 Course Course Course Narrative: This is an RME: Additional HPI, ROS, PE not included below will be deferred to primary provider. RME assessment and note performed by: Damaris Hunt PA-C This is a [id number], who presents tot he ER with complaints of elevated blood glucose level. Patient reports that she was at her oncology appointment, and was getting routine blood work in her sugar was elevated at 658 therefore she was called to report to the emergency room. She states that she has had increased thirst over this past week. She also reports some ?tiredness? in her eyes. She has been told that she was prediabetic, has not been put on any medications. Plan: Labs, further ER eval needed Medications Administered Generic Name Dose Route Start Last Admin Trade Name Freq PRN Reason Stop Dose Admin Enoxaparin Sodium 40 mg 09/12/24 19:30 09/12/24 19:52 Enoxaparin Sodium 40 Mg/0.4 Ml Syringe SUBCUT 40 mg Q24H GINI Administration Lactated Ringer's 1,000 mls @ 100 mls/hr 09/12/24 19:30 09/12/24 19:52 Lr IVCONT 100 mls/hr .Q10H GINI Administration Discontinued Medications Generic Name Dose Route Start Last Admin Trade Name Freq PRN Reason Stop Dose Admin Sodium Chloride 1,000 mls @ 999 mls/hr 09/12/24 17:00 09/12/24 18:08 Ns IV 09/12/24 18:00 Infused .Q1H1M GINI Infusion Insulin Human Lispro 10 unit 09/12/24 16:57 09/12/24 17:07 Insulin Lispro 100 Unit/Ml 3 Ml Vial SUBCUT 09/12/24 16:58 10 unit ONCE ONE Administration Medical Decision Making Medical Decision Making MDM Narrative: patient is a 63-year-old female with past medical history of hypercholesterolemia, COPD not on inhalers, depression, hiatal hernia s/p Shireen fundoplication, DCIS of the left breast s/p radiation and lumpectomy in 2019, DCIS right breast in 2023 s/p of lumpectomy and radiation who presents for evaluation of elevated random serum glucose on outpatient labs today as per HPI. admits to polydipsia and polyuria denies polyphagia. addition serum labs and ED including A1c and beta hydroxybutyrate, VBG to exclude DKA. she is not on any oral critical care steroids nor has she been on any recent I can see based on her med rec. She is not on any oral antihyperglycemics. CBC revealing a pancytopenia consistent with her baseline. VBG is without metabolic acidosis rather she is alkalotic. non-anion gap hyperglycemia, progressive TEOFILO with BUN /creatinine 18/1.57 respectively, pseudo hyponatremia, corrected for hyperglycemia is 140. A1c 9.9. Consulted with hospitalist, will admit to medicine service for further management TEOFILO new onset diabetes Differential Diagnosis Differential Diagnoses: The differential diagnosis associated with the presentation includes ( onset diabetes, DKA, HHS) Admission/Observation Consideration of admission/observation: Escalation of care including admission/observation considered Lab Data MDM Lab Attestation statement: I reviewed the patient's lab results. ( see narrative above) 09/12/24 15:56 09/12/24 15:56 Labs: Lab Results 09/12/24 09/12/24 09/12/24 Range/Units 15:56 16:05 18:09 WBC 2.9 L (4.8-10.8) X10*3/uL RBC 3.37 L (4.20-5.50) X10*6/uL Hgb 10.8 L (12.0-16.0) g/dl Hct 30.3 L (37.0-47.0) % MCV 89.9 (80.0-98.0) fL MCH 32.0 (27.0-33.0) pg MCHC 35.6 H (31.0-35.0) g/dl RDW 11.3 (11.0-16.0) % Plt Count 131 L (160-400) X10*3/uL MPV 9.0 L (9.4-12.3) fL Immature Gran % (Auto) 0.7 H (0.0-0.4) % Neut % (Auto) 68.8 (45-73) % Lymph % (Auto) 20.9 (20-40) % [place] % (Auto) 7.9 (2-11) % Eos % (Auto) 1.0 (0-4) % Baso % (Auto) 0.7 (0-2) % Lymph # (Auto) 0.6 L (1.2-4.9) X10*3/uL [place] # (Auto) 0.2 (0.1-1.2) X10*3/uL Eos # (Auto) 0.0 (0.0-0.4) X10*3/uL Baso # (Auto) 0.0 (0.0-0.2) X10*3/uL Abs Immat Gran (auto) 0.02 (0.00-0.03) X10*3/uL Absolute Neuts (auto) 2.0 (2.0-8.3) x10*3/uL Absolute Nucleated RBC 0.000 (0.0-0.012) X10*3/uL Nucleated RBC % (auto) 0.0 (0.0-0.2) /100WBC VBG pH 7.51 H (7.32-7.43) VBG pCO2 42 mmHg VBG pO2 58 mmHg VBG HCO3 33 H (22-26) mmol/L VBG O2 Saturation 88.0 % VBG Base Excess 10.0 mmol/L Sodium 132 L (135-145) mmol/L Potassium 4.4 (3.3-5.1) mmol/L Chloride 97 (96-108) mmol/L Carbon Dioxide 25 (22-29) mmol/L Anion Gap 14 (12-20) BUN 18 H (9-16) mg/dL Creatinine 1.57 H (0.5-1.4) mg/dL Estim Creat Clear Calc 35.6 Estimated GFR 33 POC Glucose 473 H* (60-115) mg/dL Random Glucose 627 H* (60-115) mg/dL Estimat Average Glucose 237 mg/dL Hemoglobin A1c % 9.9 H (<6.0) % Calcium 9.7 (8.4-10.2) mg/dL Magnesium 2.0 (1.6-2.6) mg/dL Total Bilirubin 0.4 (0.0-1.0) mg/dL Direct Bilirubin 0.1 (0.0-0.5) mg/dL AST 37 H (5-31) U/L ALT 45 H (0-31) U/L Alkaline Phosphatase 84 (39-117) U/L Troponin I High Sens < 2.7 (<3.5-17.0) ng/L Total Protein 8.3 H (6.5-8.0) g/dL Albumin 4.0 (3.5-5.0) g/dL Beta-Hydroxybutyrate 0.19 (0.02-0.27) mmol/L Ethyl Alcohol < 10 mg/dL Independent Historian Clinical information obtained from an independent historian. History obtained from or confirmed by: Spouse External Record Review External record reviewed: Outpatient record Prescription Management I considered prescription management with: Other ( see course narrative) Discharge Plan Discharge Clinical Impression: TEOFILO (acute kidney injury), New onset type 2 diabetes mellitus Patient Disposition: Admitted As Inpatient
[2024-09-12 16:04] LABS: MANUAL DIFF FLAG NO
[2024-09-12 16:09] LABS: VBG HCO3 33 mmol/L (22-26); VBG pCO2 42 mmHg; VBG pH 7.51 (7.32-7.43); VBG pO2 58 mmHg
[2024-09-12 16:13] LABS: Basophils Percent Auto 0.7 % (0-2); Hematocrit 30.3 % (37.0-47.0); Hemoglobin 10.8 g/dl (12.0-16.0); Imm Gran Abs Auto 0.02 X10*3/uL (0.00-0.03); Imm Gran Pct Auto 0.7 % (0.0-0.4); Lymphocytes Absolute Auto 0.6 X10*3/uL (1.2-4.9); Lymphocytes Percent Auto 20.9 % (20-40); Mean Corpuscular HGB Conc 35.6 g/dl (31.0-35.0); Mean Corpuscular Volume 89.9 fL (80.0-98.0); Monocytes Absolute Auto 0.2 X10*3/uL (0.1-1.2); Monocytes Percent Auto 7.9 % (2-11); Neutrophils Percent Auto 68.8 % (45-73); Platelet Count 131 X10*3/uL (160-400); Red Blood Count 3.37 X10*6/uL (4.20-5.50); Red Cell Distribution Width 11.3 % (11.0-16.0); White Blood Count 2.9 X10*3/uL (4.8-10.8)
[2024-09-12 16:24] LABS: Ethanol < 10 mg/dL
[2024-09-12 16:29] LABS: Venous Blood Gas Refer to POC result
[2024-09-12 16:32] LABS: Beta-Hydroxybutyrate 0.19 mmol/L (0.02-0.27); Troponin-I High Sensitivity < 2.7 ng/L (<3.5-17.0)
[2024-09-12 16:36] LABS: Alkaline Phosphatase 84 U/L (39-117)
[2024-09-12 16:41] LABS: Alanine Aminotransferase 45 U/L (0-31); Anion Gap 14 (12-20); Aspartate Amino Transferase 37 U/L (5-31); Bilirubin Direct 0.1 mg/dL (0.0-0.5); Bilirubin Total 0.4 mg/dL (0.0-1.0); Blood Urea Nitrogen 18 mg/dL (9-16); Calcium 9.7 mg/dL (8.4-10.2); Carbon Dioxide 25 mmol/L (22-29); Chloride 97 mmol/L (96-108); Creatinine Clr Calc Pharmacy 35.6; Estimated Glomerular Filt Rate 33; Glucose Random 627 mg/dL (60-115); Potassium 4.4 mmol/L (3.3-5.1); Sodium 132 mmol/L (135-145); Total Protein 8.3 g/dL (6.5-8.0)
[2024-09-12] MEDS: 0.9 % Sodium Chloride 1,000 ML 999 ML IV (17:07)
[2024-09-12] MEDS: Insulin Lispro 100 UNIT/ML 3 ML VIAL 10 UNIT SUBCUT (17:07)
--- NOTE | 2024-09-12 17:15 | PC.NURSE ---
patient a&ox3, iv inserted by Maribeth FRASER pt medicated per order, IVF running per order.
[2024-09-12 17:28] LABS: Estimated Average Glucose 237 mg/dL; Hemoglobin A1C 241.7731 umol/L; Hemoglobin A1c % 9.9 % (<6.0)
[2024-09-12 17:51] VITALS: BP 156/77; PULSE 95; RESP 18; O2SAT 99
--- NOTE | 2024-09-12 18:03 | PM.IMHP ---
History of Present Illness Date of Service: 09/12/24 Attending physician on admission: Luisito Carney Chief Complaint: Elevated blood sugar Pt is a 63-year-old female with a PMH significant for?HLD, left breast cancer 4 years ago, right breast cancer recently completed radiation therapy currently on anastrozole, prediabetes, and anxiety who presents to the ED for evaluation of elevated blood glucose levels. Pt reports recently completed radiation for right breast cancer on 08/15/2024. During oncology follow up appointment routine blood work showed blood glucose levels of 658, and pt was told to come to the ED for further evaluation. Pt states she was diagnosed with prediabetes 6 months prior by PCP, but apparently was not told what to do about it other than exercise. Was neither monitoring sugars or modifying diet. Reports recently increased thirst and polyuria. Also notes has been fatigued and her eyes grow tired easily which she attributed to the radiation. No nausea vomiting abdominal pain. No fever, chills. Denies numbness or tingling in extremities. No acute vision changes. Denies chest pain/pressure, palpitations. In the ED pt was tachycardic up to 107 and hypertensive up to 163/69. Labs were significant for sodium 132, creatinine 1.57 (elevated from 1.21 on 06/14/2024), random glucose 627, and A1c 9.9. Pancytopenia stable and around baseline. Troponin negative. Beta hydroxybutyrate WNL at 0.19. Pt was treated with insulin lispro 10 units and 1 L IVF. Pt will be admitted to the hospital for treatment and further evaluation of TEOFILO and hyperglycemia in the setting of newly onset type 2 diabetes. Review of Systems Review of Systems: Negative except for that which is stated in the HPI. [facility] Medical History Hiatal hernia Arthritis Pre-diabetes History of radiation therapy Ductal carcinoma in situ (DCIS) of left breast Depression Hypercholesterolemia COPD (chronic obstructive pulmonary disease) Family History Mother History of breast cancer Brother Sweat gland carcinoma Surgical History History of lumpectomy of right breast (04/11/24) Hx of abdominoplasty Hx of excision of mass H/O colonoscopy History of lumpectomy of left breast Status post laparoscopic Shireen fundoplication (~08/2009) Social History Household Members: Spouse Are you a primary career developer to a significant other at home: No Alcohol intake: current Alcohol intake frequency: 0-2 drinks per day Alcohol type: wine Patient Tobacco Use Status: Former Tobacco user Tobacco use type: Cigarette Cigarette Packs Per Day: 1 Years Smoked: 25 Smoked in Last 30 Days: No Substance Use Type: Marijuana Advance Directives: No Advance Directives Information Provided: No Patient : No service: No Current occupational status: retired Meds Allergies Allergy/AdvReac Type Severity Reaction Status Date / Time codeine [CODEINE] Allergy Intermediate NAUSEA & Verified 09/12/24 15:40 VOMITING erythromycin base Allergy Intermediate NAUSEA & Verified 09/12/24 15:40 [ERYTHROMYCIN BASE] VOMITING Sulfa (Sulfonamide Allergy Intermediate HIVES Verified 09/12/24 15:40 Antibiotics) [SULFA (SULFONAMIDE ANTIBIOTICS)] Home Medications ?Medication ?Instructions ?Recorded ?Confirmed ?Last Taken ?Type atorvastatin 20 mg tablet 20 mg PO BEDTIME 04/16/20 09/12/24 Unknown History naproxen 500 mg tablet 500 mg PO BID 04/16/20 09/12/24 04/03/24 History sertraline 100 mg tablet 150 mg PO QAM 04/16/20 09/12/24 04/11/24 History trazodone 100 mg tablet 200 mg PO BEDTIME PRN Insomnia 04/16/20 09/12/24 Unknown History hydroxyzine pamoate 25 mg capsule 25 mg PO BEDTIME PRN 09/12/24 Unknown History Anxiety/Itching Physical Exam Vital Signs and Narrative: Vital Signs: Last Vital Signs Temp 98.6 F 09/12/24 15:35 Pulse 95 09/12/24 17:51 Resp 18 09/12/24 17:51 BP 156/77 H 09/12/24 17:51 Pulse Ox 99 09/12/24 17:51 O2 Del Method Room Air 09/12/24 17:51 BMI result Body Mass Index 28.0 General: AOx3, no acute distress Resp: CTA bilaterally CVS: S1, S2, RRR GI: +BS, NT, no distention Skin: Warm, dry Neuro: Cranial nerves II-XII grossly intact bilaterally. Motor grossly intact bilaterally Extremities: No edema Psych: Appropriate affect Results Labs 09/12/24 15:56 09/12/24 15:56 Labs: Laboratory Results - last 24 hr 09/12/24 09/12/24 15:56 16:05 MCV 89.9 MCH 32.0 MCHC 35.6 H RDW 11.3 Plt Count 131 L MPV 9.0 L Immature Gran % (Auto) 0.7 H Neut % (Auto) 68.8 Lymph % (Auto) 20.9 [place] % (Auto) 7.9 Eos % (Auto) 1.0 Baso % (Auto) 0.7 Lymph # (Auto) 0.6 L [place] # (Auto) 0.2 Eos # (Auto) 0.0 Baso # (Auto) 0.0 Abs Immat Gran (auto) 0.02 Absolute Neuts (auto) 2.0 Absolute Nucleated RBC 0.000 Nucleated RBC % (auto) 0.0 VBG pH 7.51 H VBG pCO2 42 VBG pO2 58 VBG HCO3 33 H VBG O2 Saturation 88.0 VBG Base Excess 10.0 Anion Gap 14 Estim Creat Clear Calc 35.6 Estimated GFR 33 Random Glucose 627 H* Estimat Average Glucose 237 Hemoglobin A1c % 9.9 H Calcium 9.7 Magnesium 2.0 Total Bilirubin 0.4 Direct Bilirubin 0.1 AST 37 H ALT 45 H Alkaline Phosphatase 84 Total Protein 8.3 H Albumin 4.0 Beta-Hydroxybutyrate 0.19 Ethyl Alcohol < 10 Assessment and Plan (1) New onset type 2 diabetes mellitus: Status: Acute (2) TEOFILO (acute kidney injury): Status: Acute (3) Hyperglycemia: Status: Acute Plan Pt is a 63-year-old female with a PMH significant for?HLD, left breast cancer 4 years ago, right breast cancer recently completed radiation therapy currently on anastrozole, prediabetes, and anxiety who presents to the ED for evaluation of elevated blood glucose levels. Pt will be admitted to the hospital for treatment and further evaluation of TEOFILO and hyperglycemia in the setting of newly onset type 2 diabetes. New onset type 2 diabetes with hyperglycemia Initial random glucose 658 with A1c 9.9 Has been experiencing polydipsia and polyuria, otherwise asymptomatic Reports diagnosed with prediabetes 6 months ago Not on home medications or altering diet Pt given 10 units insulin in the ED Will place on sliding scale insulin, Lantus 10 units at bedtime Diabetic diet Diabetic education Will need to follow up outpatient with either PCP and/or endocrinology and diabetes center TEOFILO Creatinine 1.57, increased from current baseline of 1.20 Likely secondary to new onset type 2 diabetes with polyuria Pt given 1 L bolus in the ED Will place on maintenance fluids Follow renal function Hyponatremia, mild Sodium 132 at time of presentation In the setting of above Pt being treated with IVF Monitor labs Pancytopenia Stable, at baseline Likely secondary to breast cancer, recent radiation, on maintenance chemo Hx of breast cancer Continue anastrozole HLD Continue statin Anxiety Continue hydroxyzine and sertraline Full Code Attending:? DVT Prophylaxis: Lovenox Pt will require a hospitalization of at least two nights for treatment of?TEOFILO and hyperglycemia in the setting of new onset type 2 diabetes. Pt will require hospital level care for administration of IVF, insulin, and close monitoring of kidney function and blood glucose levels. Quality Stroke Does the patient have a stroke diagnosis?: No VTE Prior VTE?: No VTE Risk Level:: Medical - moderate - high VTE Device Contraindication: Treatment Not Indicated VTE Drug Contraindication: N/A - Med Ordered
[2024-09-12 18:13] LABS: Glucose, Whole Blood 473 mg/dL (60-115)
--- OUTSIDE RECORDS SUMMARY | 2024-09-12 19:19 | XMS_ITS ---
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
--- OUTSIDE RECORDS SUMMARY | 2024-09-12 19:19 | XMS_ITS | Clinical Summary ---
Author Organization [facility] Address [address] [place] [phone] Phone Care Team Providers Care Unit Control Worker Name Role Phone Hector Cadet MD Primary Care Provider [phone] Allergies Active Allergy Reactions Criticality Noted Date [...] Cancer Staging:Pathologic:Stage IA(pT1b, pN0, cM0, G1, ER+, [place]-, HER2-, Oncotype DX score: 19) - Signed by Claudia Silverio MD on 05/29/2024 Arthritis 05/23/2024 COPD (chronic obstructive pulmonary disease) Depression 05/23/2024 Ductal carcinoma in situ (DCIS) of left breast 1 07/23/2023 Hiatal hernia 05/23/2024 History of radiation therapy 05/23/2024 Hypercholesterolemia 05/23/2024 Pre-diabetes 05/23/2024 Encounters Date Type Department Care Team Description 08/21/2024 12:54 PM EST - 08/21/2024 11:59 PM EST Hospital Encounter [facility] Radiation Oncology [address] [place] [phone] Taylor Coulter NP Malignant neoplasm of upper-outer quadrant of right breast in female, estrogen receptor positive (CMS/HCC) (Primary Dx) Discharge Disposition: Home or Self Care 07/23/2024 10:45 AM EST - 07/23/2024 11:59 PM EST Hospital Encounter [facility] Radiation Oncology [address] [place] [phone] Taylor Coulter NP Malignant neoplasm of upper-outer quadrant of right breast in female, estrogen receptor positive (CMS/HCC) (Primary Dx) Discharge Disposition: Home or Self Care 07/23/2024 10:37 AM EST - 07/23/2024 11:59 PM EST Hospital Encounter [facility] Radiation Oncology [address] [place] [phone] Claudia Silverio MD Discharge Disposition: Home or Self Care 07/22/2024 10:39 AM EST - 07/22/2024 11:59 PM EST Hospital Encounter [facility] Radiation Oncology [address] [place] [phone] Discharge Disposition: Home or Self Care 07/19/2024 10:50 AM EST - 07/19/2024 11:59 PM EST Hospital Encounter [facility] Radiation Oncology [address] [place] [phone] Alondra Tang MD Malignant neoplasm of upper-outer quadrant of right breast in female, estrogen receptor positive (CMS/HCC) (Primary Dx) Discharge Disposition: Home or Self Care 07/19/2024 10:35 AM EST - 07/19/2024 11:59 PM EST Hospital Encounter [facility] Radiation Oncology [address] [place] [phone] Discharge Disposition: Home or Self Care 07/18/2024 10:51 AM EST - 07/18/2024 11:59 PM EST Hospital Encounter [facility] Radiation Oncology [address] [place] [phone] Alondra Tang MD Discharge Disposition: Home or Self Care 07/18/2024 10:37 AM EST - 07/18/2024 11:59 PM EST Hospital Encounter [facility] Radiation Oncology [address] [place] [phone] Discharge Disposition: Home or Self Care 07/17/2024 10:36 AM EST - 07/17/2024 11:59 PM EST Hospital Encounter [facility] Radiation Oncology [address] [place] [phone] Discharge Disposition: Home or Self Care 07/16/2024 10:36 AM EST - 07/16/2024 11:59 PM EST Hospital Encounter [facility] Radiation Oncology [address] [place] [phone] Discharge Disposition: Home or Self Care 07/15/2024 2:09 PM EST - 07/15/2024 11:59 PM EST Hospital Encounter [facility] Radiation Oncology [address] [place] [phone] Discharge Disposition: Home or Self Care 07/15/2024 10:38 AM EST - 07/15/2024 11:59 PM EST Hospital Encounter [facility] Radiation Oncology [address] [place] [phone] Discharge Disposition: Home or Self Care 07/12/2024 10:49 AM EST - 07/12/2024 11:59 PM EST Hospital Encounter [facility] Radiation Oncology [address] [place] [phone] Claudia Silverio MD Malignant neoplasm of upper-outer quadrant of right breast in female, estrogen receptor positive (CMS/HCC) (Primary Dx) Discharge Disposition: Home or Self Care 07/12/2024 10:39 AM EST - 07/12/2024 11:59 PM EST Hospital Encounter [facility] Radiation Oncology [address] [place] [phone] Discharge Disposition: Home or Self Care 07/11/2024 10:36 AM EST - 07/11/2024 11:59 PM EST Hospital Encounter [facility] Radiation Oncology [address] [place] [phone] Discharge Disposition: Home or Self Care 07/09/2024 10:38 AM EST - 07/09/2024 11:59 PM EST Hospital Encounter [facility] Radiation Oncology [address] [place] [phone] Discharge Disposition: Home or Self Care 07/08/2024 10:50 AM EST - 07/08/2024 11:59 PM EST Hospital Encounter [facility] Radiation Oncology [address] [place] [phone] Aaron Duncan MD Malignant neoplasm of upper-outer quadrant of right breast in female, estrogen receptor positive (CMS/HCC) (Primary Dx) Discharge Disposition: Home or Self Care 07/08/2024 10:39 AM EST - 07/08/2024 11:59 PM EST Hospital Encounter [facility] Radiation Oncology [address] [place] [phone] Discharge Disposition: Home or Self Care 07/05/2024 10:38 AM EST - 07/05/2024 11:59 PM EST Hospital Encounter [facility] Radiation Oncology [address] [place] [phone] Discharge Disposition: Home or Self Care 07/04/2024 10:42 AM EST - 07/04/2024 11:59 PM EST Hospital Encounter [facility] Radiation Oncology [address] [place] [phone] Discharge Disposition: Home or Self Care 07/02/2024 10:38 AM EST - 07/02/2024 11:59 PM EST Hospital Encounter [facility] Radiation Oncology [address] [place] [phone] Discharge Disposition: Home or Self Care 07/01/2024 10:36 AM EST - 07/01/2024 11:59 PM EST Hospital Encounter [facility] Radiation Oncology [address] [place] [phone] Discharge Disposition: Home or Self Care 06/28/2024 10:50 AM EST - 06/28/2024 11:59 PM EST Hospital Encounter [facility] Radiation Oncology [address] [place] [phone] Claudia Silverio MD Malignant neoplasm of upper-outer quadrant of right breast in female, estrogen receptor positive (CMS/HCC) (Primary Dx) Discharge Disposition: Home or Self Care 06/28/2024 10:40 AM EST - 06/28/2024 11:59 PM EST Hospital Encounter [facility] Radiation Oncology [address] [place] [phone] Discharge Disposition: Home or Self Care 06/27/2024 10:37 AM EST - 06/27/2024 11:59 PM EST Hospital Encounter [facility] Radiation Oncology [address] [place] [phone] Discharge Disposition: Home or Self Care 06/26/2024 10:37 AM EST - 06/26/2024 11:59 PM EST Hospital Encounter [facility] Radiation Oncology [address] [place] [phone] Discharge Disposition: Home or Self Care 06/25/2024 10:39 AM EST - 06/25/2024 11:59 PM EST Hospital Encounter [facility] Radiation Oncology [address] [place] [phone] Discharge Disposition: Home or Self Care 06/24/2024 11:41 AM EST - 06/24/2024 11:59 PM EST Hospital Encounter [facility] Radiation Oncology [address] [place] [phone] Negrito Avendaño MD Malignant neoplasm of upper-outer quadrant of right breast in female, estrogen receptor positive (CMS/HCC) (Primary Dx) Discharge Disposition: Home or Self Care 06/24/2024 11:30 AM EST - 06/24/2024 11:59 PM EST Hospital Encounter [facility] Radiation Oncology [address] [phone] Discharge Disposition: Home or Self Care 06/21/2024 8:13 AM EST - 06/21/2024 11:59 PM EST Hospital Encounter [facility] Radiation Oncology [address] [phone] Discharge Disposition: Home or Self Care from [...] RADIATION ONCOLOGY 07/22/2024 10:5 1 AM EST us Physician Radiation Oncology RADIATION [...] RADIATION ONCOLOGY 07/19/2024 11:0 3 AM EST Physician Radiation Oncology RADIATION ONCFABRIZIO GY ORDERABLES Final Result Performing Organization Address City/[facility]/ZIP Co de Phone Number MOSAIQ RADIATION ONCOLOGY [...] 6 AM EST Physician Radiation Oncology RADIATION ONCFABRIZIO [...] Oncology RADIATION ONCFABRIZIO GY ORDERABLES Final Result Performing Organization Address City/[facility]/ZIP Co de Phone Number MOSAIQ RADIATION ONCOLOGY [...] 2 AM EST Physician Radiation Oncology RADIATION ONCOLO [...] GY ORDERABLES Final Result Performing Organization Address City/[facility] Co de Phone Number MOSAIQ RADIATION ONCOLOGY [...] 3 AM EST Physician Radiation Oncology RADIATION ONCFABRIZIO [...] 0 AM EST Physician Radiation Oncology RADIATION ONCOLO GY ORDERABLES Final Result Performing Organization Address [facility]/State/ZIP Co de Phone Number MOSAIQ RADIATION ONCOLOGY [...] Oncology RADIATION ONCFABRIZIO GY ORDERABLES Final Result Performing Organization Address [facility] Co de Phone Number MOSAIQ RADIATION ONCOLOGY [...] RADIATION ONCOLOGY 06/26/2024 10:5 1 AM EST us Physician Radiation Oncology RADIATION [...] RADIATION ONCOLOGY 06/25/2024 10:5 0 AM EST Physician Radiation Oncology RADIATION ONCOLO GY ORDERABLES Final Result [facility] RADIATION ONCOLOGY from Last 3 Months Insurance [facility] Care Teams Unit Control Worker Relationship Specialty Start Date End Date Hector Cadet MD [address] [place] [address] [place] PCP - General Internal Medicine 05/23/24
--- OUTSIDE RECORDS SUMMARY | 2024-09-12 19:19 | XMS_ITS | Encounter Summary ---
Author Organization [facility] Address [address] [place] [address] Care Team Providers Care Sewer Bricklayer Name Role Phone Hector Cadet MD Primary Care Provider [phone] Reason for Visit * Reason Comments Follow-up Encounter Details Date Type Department Care Team (Latest Contact Info) Description 08/21/2024 12:54 PM EST - 08/21/2024 11:59 PM EST Hospital Encounter [facility] Radiation Oncology [address] [phone] Taylor Coulter NP [address] [place] [address] Malignant neoplasm of upper-outer quadrant of right [...] Coulter NP - 08/21/2024 1:00 PM EST [address] [phone] RADIATION ONCOLOGY FOLLOW-UP Staff Physician: Taylor Coulter NP Requesting Physician: Bal Callahan MD Date of Service: 08/21/2024 Accompanied by: Partner Diagnosis: No diagnosis found. Stage: Cancer Staging Breast cancer of upper-outer quadrant of right female breast (CMS/HCC) Staging form: Breast, AJCC 8th Edition - Pathologic: Stage IA (pT1b, pN0, cM0, G1, ER+, [place]-, HER2-, Oncotype DX score: 19) - Signed by Claudia Silverio MD on 05/29/2024 Prior treatment: 3D STEM CUTTER: Right Breast Treatment Period Technique Fraction Dose [...] Primary documented in this encounter Care Teams Sewer Bricklayer Relationship Specialty Start Date End Date Hector Cadet MD [address] [place] [address] LEONID Canales PCP - General Internal Medicine 05/23/24 documented as of this encounter
[2024-09-12] MEDS: Lactated Ringers 1,000 ML 100 ML IVCONT (19:52)
[2024-09-12] MEDS: Enoxaparin Sodium 40 MG/0.4 ML SYRINGE SUBCUT (19:52)
[2024-09-12 20:20] LABS: Appearance Urine Clear; Color Urine Yellow; Glucose Urine UA >=1000 mg/dL (Negative); Leukocyte Esterase Urine Negative (Negative); Nitrite Urine Negative (Negative); Specific Gravity - Urine >= 1.030 (1.005-1.025); UMIC TRIGGER UACC YES; Urine Blood Negative (Negative); Urine Ketones Negative (Negative); Urine Protein Negative (Neg-Trace)
[2024-09-12 20:35] LABS: Glucose, Whole Blood 355 mg/dL (60-115)
--- NOTE | 2024-09-12 20:38 | PHA.MEDREC ---
Addendum entered by Nevaeh Kendall RPh 09/12/24 21:24: [facility] reviewed Original Note: Pharmacy Consult ? Medication Reconciliation Pharmacy has completed the medication reconciliation. Spoke with patient and she confirmed her medications. Patient confirmed she took her morning medications this morning.
[2024-09-12] MEDS: Insulin Glargine,Hum.rec.anlog 100 UNIT/ML 10 ML VIAL 10 UNIT SUBCUT (21:05)
[2024-09-12 21:23] LABS: Bacteria Urine None Seen (None Seen); Hyaline Casts Urine 0-2 /LPF (0-2); RBC Urine 0-2 /HPF (0-2); Squamous Epithelial Cell Urine 0-2 /HPF (0-2); WBC Urine 0-5 /HPF (0-5)
[2024-09-12] MEDS: Insulin Lispro 100 UNIT/ML 3 ML VIAL SUBCUT (21:50)
--- NOTE | 2024-09-12 22:14 | PC.NURSE ---
Pts POC 355, provider Oyula notified per sliding scale. Per Oy[place] give 10 units. Pt medicated per mar Plan of care ongoing.
--- NOTE | 2024-09-12 22:15 | PC.NURSE ---
Pt given nonslip socks Pt ambulated to restroom and back to bed with a steady gait. Pt requested and hob lowered Plan of care ongoing.
[2024-09-13] VITALS: BP 142/72; PULSE 70; RESP 16; TEMP 36.6; O2SAT 96
--- NOTE | 2024-09-13 | ECG_ITS ---
Test Reason : CP Blood Pressure : */* mmHG Vent. Rate : 83 BPM Atrial Rate : 83 BPM P-R Int : 168 ms QRS Dur : 70 ms QT Int : 368 ms P-R-T Axes : 24 -3 12 degrees QTcB Int : 432 ms Normal sinus rhythm Normal ECG When compared with ECG of 05-Jun-2021 21:22, No significant change was found Referred By: Emile Knott Electronically Signed By: ALEKS MERINO MD
[2024-09-13] MEDS: Melatonin 3 MG TABLET 6 MG PO (00:36)
[2024-09-13 04:00] VITALS: BP 155/71; PULSE 75; RESP 16; TEMP 36.7; O2SAT 96
[2024-09-13 04:35] LABS: Hematocrit 27.6 % (37.0-47.0); Hemoglobin 9.9 g/dl (12.0-16.0); Mean Corpuscular HGB Conc 35.9 g/dl (31.0-35.0); Mean Corpuscular Volume 89.3 fL (80.0-98.0); Mean Platelet Volume 8.4 fL (9.4-12.3); Red Blood Count 3.09 X10*6/uL (4.20-5.50); Red Cell Distribution Width 11.3 % (11.0-16.0); White Blood Count 2.7 X10*3/uL (4.8-10.8)
[2024-09-13 04:49] LABS: Anion Gap 12 (12-20); Blood Urea Nitrogen 14 mg/dL (9-16); Calcium 9.1 mg/dL (8.4-10.2); Carbon Dioxide 24 mmol/L (22-29); Chloride 107 mmol/L (96-108); Creatinine Clr Calc Pharmacy 57.1; Estimated Glomerular Filt Rate 58; Glucose Random 273 mg/dL (60-115); Sodium 139 mmol/L (135-145)
[2024-09-13 04:56] LABS: Platelet Count 89 X10*3/uL (160-400)
[2024-09-13] MEDS: Lactated Ringers 1,000 ML 100 ML IVCONT ×2 (05:19→15:42)
[2024-09-13 07:15] LABS: Glucose, Whole Blood 259 mg/dL (60-115)
[2024-09-13] MEDS: Insulin Lispro 100 UNIT/ML 3 ML VIAL SUBCUT ×4 (07:20→20:40)
[2024-09-13] MEDS: LORazepam 0.5 MG TABLET PO (10:11)
[2024-09-13] MEDS: Cholecalciferol (Vitamin D3) 25 MCG TABLET 125 MCG PO (10:11)
[2024-09-13] MEDS: Aspirin Enteric Coated 81 MG TABLET.DR 162 MG PO (10:11)
[2024-09-13] MEDS: Sertraline HCL 50 MG TABLET 150 MG PO (10:12)
[2024-09-13 10:39] VITALS: BP 165/80; PULSE 74; RESP 16; O2SAT 96
[2024-09-13 11:27] LABS: Troponin-I High Sensitivity < 2.7 ng/L (<3.5-17.0)
[2024-09-13] MEDS: Anastrozole 1 MG TABLET PO (11:56)
--- NOTE | 2024-09-13 12:26 | MHC.CM.PN ---
PT IS INDEPEDENT HAS NO SERVICES HAS OWN [facility] HOME N/S
[2024-09-13 13:29] VITALS: BP 176/83; PULSE 77; RESP 16; O2SAT 96
[2024-09-13 13:51] LABS: Glucose, Whole Blood 310 mg/dL (60-115)
[2024-09-13 17:15] VITALS: BP 146/74; PULSE 96; RESP 18; TEMP 36.1; O2SAT 97
[2024-09-13 17:57] LABS: Glucose, Whole Blood 275 mg/dL (60-115)
[2024-09-13] MEDS: 0.9 % Sodium Chloride Flush 3 ML SYRINGE IVFLUSH (18:07)
[2024-09-13 19:30] VITALS: BP 154/76; PULSE 83; RESP 18; TEMP 36.4; O2SAT 97
[2024-09-13] MEDS: Enoxaparin Sodium 40 MG/0.4 ML SYRINGE SUBCUT (19:55)
[2024-09-13 20:11] LABS: Glucose, Whole Blood 330 mg/dL (60-115)
[2024-09-13] MEDS: Atorvastatin Calcium 20 MG TABLET PO (20:39)
[2024-09-13] MEDS: Insulin Glargine,Hum.rec.anlog 100 UNIT/ML 10 ML VIAL 10 UNIT SUBCUT (20:39)
[2024-09-13] MEDS: traZODone HCL 100 MG TABLET 200 MG PO (20:46)
[2024-09-14] MEDS: Lactated Ringers 1,000 ML 100 ML IVCONT (02:18)
[2024-09-14 04:00] VITALS: BP 155/77; PULSE 80; RESP 16; TEMP 36.4; O2SAT 97
[2024-09-14 06:42] LABS: Anion Gap 13 (12-20); Blood Urea Nitrogen 9 mg/dL (9-16); Calcium 9.3 mg/dL (8.4-10.2); Carbon Dioxide 25 mmol/L (22-29); Chloride 104 mmol/L (96-108); Creatinine Clr Calc Pharmacy 68.3; Estimated Glomerular Filt Rate > 60; Glucose Random 280 mg/dL (60-115); Potassium 3.8 mmol/L (3.3-5.1); Sodium 138 mmol/L (135-145)
[2024-09-14 07:57] VITALS: BP 156/90; PULSE 80; RESP 18; TEMP 36.6; O2SAT 95
[2024-09-14 08:05] LABS: Glucose, Whole Blood 282 mg/dL (60-115)
[2024-09-14] MEDS: Sertraline HCL 50 MG TABLET 150 MG PO (08:49)
[2024-09-14] MEDS: metFORMIN HCl 500 MG TABLET PO (08:49)
[2024-09-14] MEDS: Cholecalciferol (Vitamin D3) 25 MCG TABLET 125 MCG PO (08:50)
[2024-09-14] MEDS: Insulin Lispro 100 UNIT/ML 3 ML VIAL SUBCUT ×3 (08:50→16:54)
[2024-09-14] MEDS: Anastrozole 1 MG TABLET PO (08:51)
--- NOTE | 2024-09-14 10:34 | P.DS_ITS ---
DS: Providers Provider Date of Service: 09/14/24 Date of admission: 09/12/24 19:24 Date of discharge: 09/14/24 Primary care physician: Hector Cadet MD Attending physician on discharge: Emile Knott Discharging clinician: Emile Knott DS: Diagnosis Discharge Diagnosis (1) New onset type 2 diabetes mellitus: Status: Acute (2) TEOFILO (acute kidney injury): Status: Acute (3) Hyperglycemia: Status: Acute DS: Summary Hospital Course Hospital Course: HPI:63-year-old female with a PMH significant for?HLD, left breast cancer 4 years ago, right breast cancer recently completed radiation therapy currently on anastrozole, prediabetes, and anxiety who presents to the ED for evaluation of elevated blood glucose levels. Pt reports recently completed radiation for right breast cancer on 08/15/2024. During oncology follow up appointment routine blood work showed blood glucose levels of 658, and pt was told to come to the ED for further evaluation. Pt states she was diagnosed with prediabetes 6 months prior by PCP, but apparently was not told what to do about it other than exercise. Was neither monitoring sugars or modifying diet. Reports recently increased thirst and polyuria. Also notes has been fatigued and her eyes grow tired easily which she attributed to the radiation. No nausea vomiting abdominal pain. No fever, chills. Denies numbness or tingling in extremities. No acute vision changes. Denies chest pain/pressure, palpitations. In the ED pt was tachycardic up to 107 and hypertensive up to 163/69. Labs were significant for sodium 132, creatinine 1.57 (elevated from 1.21 on 06/14/2024), random glucose 627, and A1c 9.9. Pancytopenia stable and around baseline. Troponin negative. Beta hydroxybutyrate WNL at 0.19. Pt was treated with insulin lispro 10 units and 1 L IVF. Pt will be admitted to the hospital for treatment and further evaluation of TEOFILO and hyperglycemia in the setting of newly onset type 2 diabetes. hospital course:63-year-old female with a PMH significant for?HLD, left breast cancer 4 years ago, right breast cancer recently completed radiation therapy currently on anastrozole, prediabetes, and anxiety who presents to the ED for evaluation of elevated blood glucose levels: Patient found to have hyperglycemia, TEOFILO: Started on insulin, hydration-patient seems to be improved significantly. Hemoglobin A1c is 9.9. Patient will be going home with Lantus and metformin. TEOFILO: Improved with the hydration, patient was strongly advised for p.o. hydration, monitor BMP outpatient with PCP.avoid nsaid due to recent teofilo and nephrotoxic meds. Pseudo hyponatremia secondary to hyperglycemia-resolved. plan: Lantus 12 units at bedtime, metformin 500 mg b.i.d. TEOFILO improved with hydration, monitor BMP outpatient with PCP.avoid nsaid due to recent teofilo and nephrotoxic meds. Above management discussed with the patient and at bedside in detail length they both understand and in agreement with the above plan, time spent 40 minute. Time Attestation Total time managing care of this patient today: 40 mintues. Discharge Coordination Time (in mins): 40 min Quality: Safe Use of Opioids Does Pt have an Active Cancer Diagnosis on the Problem List?: No Quality: Stroke Does the patient have a stroke diagnosis?: No Physical Exam Vital Signs: Vital Signs: Last Vital Signs Temp 97.8 F 09/14/24 07:57 Pulse 80 09/14/24 07:57 Resp 18 09/14/24 07:57 BP 156/90 H 09/14/24 07:57 Pulse Ox 95 09/14/24 07:57 O2 Del Method Room Air 09/14/24 07:57 BMI result Body Mass Index 28.0 Appearance: Alert.? Oriented X3.? cvs: rrr, [id number] . res: clear to auscultation ,no rhonchii or wheezing abd :soft,nt, bs present. ext pulses present , no cyanosis. neuro: axo3 , nonfocal. DS: Data Data Completed and Pending Labs on day of discharge: Laboratory Results - last 24 hr 09/13/24 09/13/24 09/13/24 10:51 13:47 17:52 Hold Purple Top Sodium Potassium Chloride Carbon Dioxide Anion Gap BUN Creatinine Estim Creat Clear Calc Estimated GFR POC Glucose 310 H 275 H Random Glucose Calcium Troponin I High Sens < 2.7 09/13/24 09/14/24 09/14/24 20:07 05:52 08:01 Hold Purple Top SEE NOTE Sodium 138 Potassium 3.8 Chloride 104 Carbon Dioxide 25 Anion Gap 13 BUN 9 Creatinine 0.82 Estim Creat Clear Calc 68.3 Estimated GFR > 60 POC Glucose 330 H 282 H Random Glucose 280 H Calcium 9.3 Troponin I High Sens Discharge Plan Discharge Anticipated Discharge Date/Time: 09/14/24 10:19 Patient Disposition: Home, Self-Care Discharge Diagnosis: new onset dm ,teofilo Referrals: Wilbert Valente [Outside] - 3-5 Days (services will start on 09/17/24 as discussed ) Angelito Jaime MD [Physician] - [facility] [place] [Primary Care Provider] - 1 Week Sulma Stacy RN [Registered Nurse] - Discharge Medications: New dextrose [Glutose-15] 40 % Gel 15 g PO Q15M PRN (Reason: Per Hypoglycemia Standing Ord.) Qty: 112.5 0RF Protocol: Glucose Gel Hypoglycemia Standing Order Protocol Text: For patients able to take PO (patient cooperative and able to swallow). Give Glucose Gel 15 gm PO for Blood Glucose (BG) < 70. Repeat BG every 15 min until BG > 70 x 3, if BG still < 70 and/or patient symptomatic repeat glucose gel or rapid acting carbohydrate. Notify MD if BG does not improve with treatment. (DME) FreeStyle Lite Strips Strip Qty: 100 0RF Rx Instructions: Test four times a day or as directed. (DME) blood-glucose meter [FreeStyle Lite Meter] Kit Qty: 1 0RF Rx Instructions: As Directed alcohol swabs Pads, Medicated 1 pad TOPICAL QIDACHS Qty: 100 0RF Rx Instructions: Use four times a day or as directed. insulin glargine [Lantus Solostar U-100 Insulin] 100 unit/mL (3 mL) insulin pen 12 unit SUBCUT BEDTIME Qty: 15 0RF (DME) pen needle, diabetic 32 gauge x 1/4 needle Qty: 100 0RF Rx Instructions: Use four times a day or as directed. (DME) lancets [FreeStyle Lancets] 28 gauge misc Qty: 100 0RF Rx Instructions: Test four times a day or as directed. metformin 500 mg Tablet 500 mg PO BIDWM Qty: 180 0RF Continued cholecalciferol (vitamin D3) [Vitamin D3] 125 mcg (5,000 unit) Tablet 125 mcg PO DAILY Qty: 30 5RF anastrozole [Arimidex] 1 mg Tablet 1 mg PO DAILY Qty: 90 4RF hydroxyzine pamoate 25 mg capsule 25 mg PO BEDTIME PRN (Reason: Anxiety/Itching) trazodone 100 mg tablet 200 mg PO BEDTIME PRN (Reason: Insomnia) sertraline 100 mg tablet 150 mg PO DAILY atorvastatin 20 mg tablet 20 mg PO BEDTIME Discontinued naproxen 500 mg tablet 500 mg PO BID Discharge Orders: Discharge Order (Routine); Ordered 09/14/24 Ordered By: Emile Knott Diet: Advance to usual diet Activity on Discharge: As tolerated Stand Alone Forms: Patient Portal Discharge page Print Language: Uzbek Care Plan Goals: 63-year-old female with a PMH significant for?HLD, left breast cancer 4 years ago, right breast cancer recently completed radiation therapy currently on anastrozole, prediabetes, and anxiety who presents to the ED for evaluation of elevated blood glucose levels: Patient found to have hyperglycemia, TEOFILO: Started on insulin, hydration-patient seems to be improved significantly. Hemoglobin A1c is 9.9. Patient will be going home with Lantus and metformin. TEOFILO: Improved with the hydration, patient was strongly advised for p.o. hydration, monitor BMP outpatient with PCP. Pseudo hyponatremia secondary to hyperglycemia-resolved. Health Concerns: As above. Plan of Treatment: Patient will be going home with Lantus/metformin, diabetic education given. Assessment: As above. Patient Instructions: Metformin (By mouth), Insulin Glargine (By injection), Foot Care for People with Diabetes (ED), Hypoglycemia in a Person with Diabetes (ED), Type 2 Diabetes in Adults: New Diagnosis (ED), How to Give an Insulin Injection (ED), Basic Carbohydrate Counting (DC), Meal Planning with the Plate Method (DC), Insulin Pens (ED), Managing Diabetes During Sick Days (ED), Diabetic Hyperglycemia (ED) Discharge Date/Time: 09/14/24 16:59
--- NOTE | 2024-09-14 11:01 | MHC.CM.PN ---
Addendum entered by Fabiola Henderson 09/14/24 12:46: [facility] HAS ACCEPTED REFERRAL, HOWEVER THEY ARE UNABLE TO PROVIDE SOC BEFORE 09/17/24 CM MET WITH PT WHO IS AWARE THIS IS THE ONLY AGENCY ACCEPTING AT THIS TIME SHE STATES SHE ALREADY HAD SOME BEDSIDE TEACHING AND REALLY JUST WANTED TO TALK TO THEM ABOUT DIET SHE IS ALSO AWARE THAT SHE CAN ASK QUESTIONS AT THE PHARMACY WHEN SHE RECEIVES HER PRESCRIPTIONS PT WILL SELF ARRANGE TRANSPORT ONCE HER DC IS COMPLEE Addendum entered by Fabiola Henderson 09/14/24 12:24: CM MET WITH PT TO DISCUSS DCP SHE AGREES TO [facility] FOR DIABETIC TEACHING SHE HAS NO AGENCY PREFERENCES REFERRALS MADE Original Note: PT TO DC HOME TODAY WITH NO SERVICES VIA PRIVATE TRANSPORT
[2024-09-14] MEDS: Acetaminophen 325 MG TABLET 650 MG PO (11:12)
[2024-09-14 11:32] LABS: Glucose, Whole Blood 314 mg/dL (60-115)
--- NOTE | 2024-09-14 13:14 | P.F2F_ITS ---
Service Date Service Date: 09/14/24 Encounter Date of encounter: 09/14/24 Encounter: TEOFILO, new onset diabetes. Reasons for Services Signs and symptoms assessed: Any new complaints Reason for nursing home: diabetic teaching, monitoring of unstable blood sugar, medication management, medication treatment and teach disease management MD Overseeing Care: Hector Cadet Homebound: Leaving the home is medically contraindicated at this time without the asist of a device and/or another person due th the listed conditions above and below. Reason homebound: weakness related to hospital stay Homebound supporting statement: Patient is generalised weak post hospitalisation and need help with going to appointments and labs draws ,medical management . Certification: Based on the above findings, I certify that this patient is confined to the home and needs intermittent nursing home care, physical therapy and/or speech therapy, or continues to need occupational therapy. The patient is under my care, and I have initiated the establishment of the plan of care. The patient will be followed by a physician who will periodically review the plan of care. Time Spent With Patient Time: Total time managing care of this patient today ____ minutes.
[2024-09-14 15:08] VITALS: BP 140/85; PULSE 71; RESP 18; TEMP 36.1; O2SAT 94
[2024-09-14 15:49] LABS: Glucose, Whole Blood 280 mg/dL (60-115)
== END 2024-09-14 16:59 | disposition home or self-care (01) | DRG 420 ==
LOC: HO.ED 18:23 → HO.EDOVER 19:31 → HO.S3 09-13 14:58
PROVIDERS: Internal Medicine; Nurse Practitioner Family; Physician Assistant Medical; Admitting Provider Student in an Organized Health Care Education/Training Program; Emergency Provider Emergency Medicine; PCP Internal Medicine; Visit Provider Internal Medicine
DX: E11.65 Type 2 diabetes mellitus with hyperglycemia (principal); D61.818 Other pancytopenia; N17.9 Acute kidney failure, unspecified; C50.911 Malignant neoplasm of unspecified site of right female breast; C50.912 Malignant neoplasm of unspecified site of left female breast; E78.5 Hyperlipidemia, unspecified; F41.9 Anxiety disorder, unspecified; Z79.811 Long term (current) use of aromatase inhibitors; Z87.891 Personal history of nicotine dependence; Z79.899 Other long term (current) drug therapy
CPT/HCPCS: 36415; 80048; 80076; 80307; 81001; 82010; 82803; 82947; 83036; 83735; 84484; 85025; 85027; 93005; 99285; J1650; J7120

== ENCOUNTER 2024-09-12 19:24 | Outpatient (BNV) | payer OTHER, SELFPAY | END 2024-09-13 10:00 | PROVIDERS: Admitting Provider Student in an Organized Health Care Education/Training Program; Emergency Provider Emergency Medicine; PCP Internal Medicine; Visit Provider Internal Medicine Cardiovascular Disease | DX: R07.9 Chest pain, unspecified (principal) | CPT/HCPCS: 93010 ==

== ENCOUNTER → 2024-09-12 19:24 | Outpatient (BNV) | payer OTHER, SELFPAY | PROVIDERS: Admitting Provider Student in an Organized Health Care Education/Training Program; Emergency Provider Emergency Medicine; PCP Internal Medicine; Visit Provider Student in an Organized Health Care Education/Training Program | DX: N17.9 Acute kidney failure, unspecified (principal); E11.8 Type 2 diabetes mellitus with unspecified complications | CPT/HCPCS: 99223; 99239; G0180 ==

== ENCOUNTER 2024-09-24 09:57 | Outpatient (AMB) | payer OTHER, SELFPAY ==
--- NOTE | 2024-09-19 14:06 | A.OFFVIS_ITS ---
Vital Signs 09/24/24 10:07 Weight 154 lb 5.177 oz BP 112/60 Blood Pressure Location Rt brachial Position Sitting Pulse 103 H Pulse Source Pulse Oximeter Pulse Oximetry (%) 98 Intake Visit Reasons: T2DM Intake Note: NEW Patient presents today to establish treatment for Type 2 Diabetes Mellitus: Last Diabetic eye exam was on: a year ago Last Podiatry exam was on: Patient does not see a Machine Presser Most recent HbA1c: 9.9%, 09/12/2024 Random Glucose- 148 mg/dL, Today Baker Bench Required: No Accompanied by: Significant Other Allergies codeine [CODEINE] Allergy (Intermediate, Verified 09/24/24 10:08) NAUSEA & VOMITING erythromycin base [ERYTHROMYCIN BASE] Allergy (Intermediate, Verified 09/24/24 10:08) NAUSEA & VOMITING Sulfa (Sulfonamide Antibiotics) [SULFA (SULFONAMIDE ANTIBIOTICS)] Allergy (Intermediate, Verified 09/24/24 10:08) HIVES Medication List - Last Reconciled 09/24/24 by Amira Lowery NP alcohol swabs 1 pad topical QIDACHS anastrozole (Arimidex) 1 mg PO DAILY atorvastatin 20 mg PO BEDTIME blood sugar diagnostic (FreeStyle Lite Strips) Test four times a day or as directed. blood-glucose meter (FreeStyle Lite Meter kit) As Directed blood-glucose sensor (Dexcom G7 Sensor device) As directed every ten days cholecalciferol (vitamin D3) (Vitamin D3) 125 mcg PO DAILY dextrose 40% (Glutose-15) 15 grams See Protocol PO Q15M PRN hydroxyzine pamoate 25 mg PO BEDTIME PRN insulin glargine (Lantus Solostar U-100 Insulin) 15 units (0.15 mL) subcut BEDT MARCOS 30 days lancets (FreeStyle Lancets) Test four times a day or as directed. metformin 500 mg PO BIDWM pen needle, diabetic Use four times a day or as directed. sertraline 150 mg PO DAILY trazodone 200 mg PO BEDTIME PRN HPI Comments Details: 63 YO female who is seen in consultation for DM at the request of PCP. She was diagnosed with prediabetes approx 03/2024. She was hospitalized early September with a glucose in the 600 range and in TEOFILO. Initially diagnosed with T2DM in 2024. Was initially started on treatment with Lantus and metformin. Insulin was recently increased to 15 units Current regimen: Lantus 15 units metformin 500 mg b.i.d. Dexcom average glucose: 153 14 day continuous glucose monitor report reviewed TIme in ranges: 0 % very high (above 250) 21 % high ?(181-250) 79 % in range ?(70-180] 0 % low (69-55) 0 % ?very low (below 54) 31 Standard Deviation Interpretation excellent control Reports low sugars none Family history of T2DM in []. Denies retinopathy. Denies neuropathy, last foot exam [], sees podiatry. Denies nephropathy 09/14/2024 eGFR>60 UA neg for protein TEOFILO 10/01 resolved Has HLD, on Denies CAD. currently being treated for breast cancer: Has completed treatment we will follow up with Oncology in 3 months. Reports some depression secondary to the breast cancer. She has seen a clinical psychologist Diet: Balanced trying to follow the plate method. Requests to see MENDOZA and levy Rosario RD Weight: Stable She has recently started and has a goal to walk 1 mi daily. [facility] Medical History Hiatal hernia Arthritis Pre-diabetes History of radiation therapy Ductal carcinoma in situ (DCIS) of left breast Depression Hypercholesterolemia COPD (chronic obstructive pulmonary disease) Surgical History History of lumpectomy of right breast (04/11/24) Hx of abdominoplasty Hx of excision of mass H/O colonoscopy History of lumpectomy of left breast Status post laparoscopic Shireen fundoplication (~08/2009) Family History Mother History of breast cancer Brother Sweat gland carcinoma Social History Household Members: Significant Other Housing: House Are you a primary pediatric care coordinator to a significant other at home: No Alcohol intake: current Alcohol intake frequency: 0-2 drinks per day Alcohol type: wine Patient Tobacco Use Status: Former Tobacco user Tobacco use type: Cigarette Cigarette Packs Per Day: 1 Years Smoked: 25 Substance Use Type: Marijuana service: No Current occupational status: retired Physical Exam Vital Signs: Last Vital Signs Pulse 103 H 09/24/24 10:07 BP 112/60 09/24/24 10:07 Pulse Ox 98 09/24/24 10:07 Absence of Cushingoid features. Absence of acromegalic features. Neck exam reveals nl size thyroid about 15 gms. No thyroid nodules palpable. No carotid bruits present. Lungs CTA. Heart S1 S2, Reg R/R. No M/R/ G. Skin exam reveals absence of vitiligo or acanthosis nigricans. Abdominal exam reveals Soft NT/ND with NA BS. No organomegaly present. Const Other: Absence of Cushingoid features. Absence of acromegalic features. Neck exam reveals nl size thyroid about 15 gms. No thyroid nodules palpable. No carotid bruits present. Lungs CTA. Heart S1 S2, Reg R/R. No M/R G. Skin exam reveals absence of vitiligo or acanthosis nigricans. No edema Visual exam of foot performed. No ulcerations or open lesions. No inter digit maceration or fissuring. No onychomycosis, no callouses. Sensation intact to monofilament exam. Vibratory sensation is normal with 128 Hz tuning fork. Neck Other: . Extrem Other: Visual exam of foot performed. No ulcerations or open lesions. No onchomycosis, no callouses.Pulses 2 + distally Sensation intact to monofilament exam. Vibratory sensation sensed is intact with 128 Hz tuning fork Office Procedures Glucose Monitoring Details Details: see [facility] [id number] - Glucose monitoring, continuous-physician I&R Procedure code (CPT) selection complete Results Reviewed Results Reviewed: Laboratory Last Values Glucose (Clinic) 148 mg/dL (60-115) H 09/24/24 10:14 Assessment & Plan Assessment & Plan (1) New onset type 2 diabetes mellitus: Code(s): E11.9 - Type 2 diabetes mellitus without complications Category: Medical Plan: 63-year-old newly diagnosed with diabetic 10/01 with acute hospitalization with glucose in the 600s along with a TEOFILO which has resolved. She is doing well on metformin and low dose insulin. Would most likely not be a great candidate as she has had a history of excessive GERD in his status post fundoplication. Reviewed need to stop metformin for acute illness, dye testing or surgery two days prior The patient had an opportunity to ask questions regarding treatment plan. The patient expressed understanding and agreement with the above treatment plan. The patient is aware they should contact our office by phone for worsening glucose readings or for any low blood sugars which may warrant a change in diabetes medication. Compliance is encouraged with medications and any followup testing/consults which may have been ordered. Orders: Orders AMB Glucose Monitoring Today E11.9 - Type 2 diabetes mellitus without complications Referrals Registered Nurse Cardiac Nutrition Referral E11.9 - Type 2 diabetes mellitus without complications Medications: New blood-glucose sensor (Cervalis G7 Sensor device) As directed every ten days 3 ea 11RF Changed From insulin glargine (Lantus Solostar U-100 Insulin) 12 units (0.12 mL) subcut BEDTIME 15 mL 0RF To insulin glargine (Lantus Solostar U-100 Insulin) 15 units (0.15 mL) subcut BEDTIME 30 days 6 mL 11RF Refilled insulin glargine (Lantus Solostar U-100 Insulin) 15 units (0.15 mL) subcut BEDTIME 30 days 6 mL 11RF Patient Instructions: The patient was counseled to achieve a target A1C of 7% (154 avg). Fasting blood sugars should be 90-130 in the morning and less than 180 two hours after meals. Reviewed the relationship between poor diabetic control and the development of complications. Check your feet daily looking for any signs of infection, drainage, redness, ulceration and seek medical attention if this occurs. Break in shoes gradually and do not wear open-toed shoes or walk stocking footed or barefooted. Coding Level of Care Code Est Pt Level 5 (43862) Complex EM visit Add On G2211 Diagnoses New onset type 2 diabetes mellitus E11.9 CPT Codes Details - CPT: 78997 - Glucose monitoring, continuous-physician I&R ([id number]) Time Spent (min) 54 Comment Time spent reviewing labs/provider notes, glucose,sensor reports, face to face, chart doc
[2024-09-24 10:07] VITALS: BP 112/60; PULSE 103; O2SAT 98
[2024-09-24 10:21] LABS: Glucose, Whole Blood 148 mg/dL (60-115)
--- OUTSIDE RECORDS SUMMARY | 2024-09-24 11:16 | XMS_ITS ---
Author Organization [facility] Address [address] [place] [id number] Phone Care Team Providers Care Assistant Professor Of Physics Name Role Phone Hector Cadet MD Primary Care Provider [phone] Active Problems Problem Noted Date Diagnosed Date Malignant neoplasm of upper- outer quadrant of right breast in female, estrogen receptor positive 05/29/2024 Breast cancer of upper-outer quadrant of right female breast 05/23/2024 Cancer Staging:Pathologic:Stage IA(pT1b, pN0, cM0, G1, ER+, KS-, HER2-, Oncotype DX score: 19) - Signed [...]
--- OUTSIDE RECORDS SUMMARY | 2024-09-24 11:16 | XMS_ITS | Clinical Summary ---
Author Organization [facility] Address [address] [place] [phone] Phone Care Team Providers Care Insert Cutter Name Role Phone Hector Cadet MD Primary Care Provider [phone] Allergies Active Allergy Reactions Criticality Noted Date [...] Cancer Staging:Pathologic:Stage IA(pT1b, pN0, cM0, G1, ER+, SC-, HER2-, Oncotype DX score: 19) - Signed by Claudia Silverio MD on 05/29/2024 Arthritis 05/23/2024 COPD (chronic obstructive pulmonary disease) Depression 05/23/2024 Ductal carcinoma in situ (DCIS) of left breast 1 07/23/2023 Hiatal hernia 05/23/2024 History of radiation therapy 05/23/2024 Hypercholesterolemia 05/23/2024 Pre-diabetes 05/23/2024 Encounters Date Type Department Care Team Description 08/21/2024 12:54 PM EST - 08/21/2024 11:59 PM EST Hospital Encounter [facility] Radiation Oncology [address] [place] [phone] Taylor Coulter NP Malignant neoplasm of upper-outer quadrant of right breast in female, estrogen receptor positive (CMS/HCC) (Primary Dx) Discharge Disposition: Home or Self Care 07/23/2024 10:45 AM EST - 07/23/2024 11:59 PM EST Hospital Encounter [facility] Radiation Oncology [address] [place] [phone] Taylor Coulter NP Malignant neoplasm of upper-outer quadrant of right breast in female, estrogen receptor positive (CMS/HCC) (Primary Dx) Discharge Disposition: Home or Self Care 07/23/2024 10:37 AM EST - 07/23/2024 11:59 PM EST Hospital Encounter [facility] Radiation Oncology [address] [place] [phone] Claudia Silverio MD Discharge Disposition: Home or Self Care 07/22/2024 10:39 AM EST - 07/22/2024 11:59 PM EST Hospital Encounter [facility] Radiation Oncology [address] [place] [phone] Discharge Disposition: Home or Self Care 07/19/2024 10:50 AM EST - 07/19/2024 11:59 PM EST Hospital Encounter [facility] Radiation Oncology [address] [place] [phone] Alondra Tang MD Malignant neoplasm of upper-outer quadrant of right breast in female, estrogen receptor positive (CMS/HCC) (Primary Dx) Discharge Disposition: Home or Self Care 07/19/2024 10:35 AM EST - 07/19/2024 11:59 PM EST Hospital Encounter [facility] Radiation Oncology [address] [place] [phone] Discharge Disposition: Home or Self Care 07/18/2024 10:51 AM EST - 07/18/2024 11:59 PM EST Hospital Encounter [facility] Radiation Oncology [address] [place] [phone] Alondra Tang MD Discharge Disposition: Home or Self Care 07/18/2024 10:37 AM EST - 07/18/2024 11:59 PM EST Hospital Encounter [facility] Radiation Oncology [address] [place] [phone] Discharge Disposition: Home or Self Care 07/17/2024 10:36 AM EST - 07/17/2024 11:59 PM EST Hospital Encounter [facility] Radiation Oncology [address] [place] [phone] Discharge Disposition: Home or Self Care 07/16/2024 10:36 AM EST - 07/16/2024 11:59 PM EST Hospital Encounter [facility] Radiation Oncology [address] [place] [phone] Discharge Disposition: Home or Self Care 07/15/2024 2:09 PM EST - 07/15/2024 11:59 PM EST Hospital Encounter [facility] Radiation Oncology [address] [place] [phone] Discharge Disposition: Home or Self Care 07/15/2024 10:38 AM EST - 07/15/2024 11:59 PM EST Hospital Encounter [facility] Radiation Oncology [address] [place] [phone] Discharge Disposition: Home or Self Care 07/12/2024 10:49 AM EST - 07/12/2024 11:59 PM EST Hospital Encounter [facility] Radiation Oncology [address] [place] [phone] Claudia Silverio MD Malignant neoplasm of upper-outer quadrant of right breast in female, estrogen receptor positive (CMS/HCC) (Primary Dx) Discharge Disposition: Home or Self Care 07/12/2024 10:39 AM EST - 07/12/2024 11:59 PM EST Hospital Encounter [facility] Radiation Oncology [address] [place] [phone] Discharge Disposition: Home or Self Care 07/11/2024 10:36 AM EST - 07/11/2024 11:59 PM EST Hospital Encounter [facility] Radiation Oncology [address] [place] [phone] Discharge Disposition: Home or Self Care 07/09/2024 10:38 AM EST - 07/09/2024 11:59 PM EST Hospital Encounter [facility] Radiation Oncology [address] [place] [phone] Discharge Disposition: Home or Self Care 07/08/2024 10:50 AM EST - 07/08/2024 11:59 PM EST Hospital Encounter [facility] Radiation Oncology [address] [place] [phone] Aaron Duncan MD Malignant neoplasm of upper-outer quadrant of right breast in female, estrogen receptor positive (CMS/HCC) (Primary Dx) Discharge Disposition: Home or Self Care 07/08/2024 10:39 AM EST - 07/08/2024 11:59 PM EST Hospital Encounter [facility] Radiation Oncology [address] [place] [phone] Discharge Disposition: Home or Self Care 07/05/2024 10:38 AM EST - 07/05/2024 11:59 PM EST Hospital Encounter [facility] Radiation Oncology [address] [place] [phone] Discharge Disposition: Home or Self Care 07/04/2024 10:42 AM EST - 07/04/2024 11:59 PM EST Hospital Encounter [facility] Radiation Oncology [address] [place] [phone] Discharge Disposition: Home or Self Care 07/02/2024 10:38 AM EST - 07/02/2024 11:59 PM EST Hospital Encounter [facility] Radiation Oncology [address] [place] [phone] Discharge Disposition: Home or Self Care 07/01/2024 10:36 AM EST - 07/01/2024 11:59 PM EST Hospital Encounter [facility] Radiation Oncology [address] [place] [phone] Discharge Disposition: Home or Self Care 06/28/2024 10:50 AM EST - 06/28/2024 11:59 PM EST Hospital Encounter [facility] Radiation Oncology [address] [place] [phone] Claudia Silverio MD Malignant neoplasm of upper-outer quadrant of right breast in female, estrogen receptor positive (CMS/HCC) (Primary Dx) Discharge Disposition: Home or Self Care 06/28/2024 10:40 AM EST - 06/28/2024 11:59 PM EST Hospital Encounter [facility] Radiation Oncology [address] [place] [phone] Discharge Disposition: Home or Self Care 06/27/2024 10:37 AM EST - 06/27/2024 11:59 PM EST Hospital Encounter [facility] Radiation Oncology [address] [place] [phone] Discharge Disposition: Home or Self Care 06/26/2024 10:37 AM EST - 06/26/2024 11:59 PM EST Hospital Encounter [facility] Radiation Oncology [address] [place] [phone] Discharge Disposition: Home or Self Care from [...] TREATMENT SUMMARY Routine 06/26/2024 10:51 AM EST from Last 3 Months Results [...] RADIATION ONCOLOGY 07/23/2024 10:4 5 AM EST us Physician Radiation Oncology RADIATION [...] 1 AM EST Physician Radiation Oncology RADIATION ONCFABRIZOI GY ORDERABLES Final Result Performing Organization Address City/[facility]/ZIP Co de Phone Number [facility] RADIATION ONCOLOGY [...] 4 AM EST Physician Radiation Oncology RADIATION ONCFABRIZIO [...] GY ORDERABLES Final Result Performing Organization Address City/State/[facility] Co de Phone Number [facility] RADIATION ONCOLOGY [...] RADIATION ONCOLOGY 07/12/2024 10:4 9 AM EST us Physician Radiation Oncology RADIATION [...] GY ORDERABLES Final Result Performing Organization Address City/[facility]/ZIP Co de Phone Number [facility] RADIATION ONCOLOGY [...] GY ORDERABLES Final Result Performing Organization Address City/[facility]/ZIP Co de Phone Number [facility] RADIATION ONCOLOGY [...] 1 AM EST Physician Radiation Oncology RADIATION ONCOLO GY ORDERABLES Final Result Performing Organization Address City/State/[facility] Co de Phone Number [facility] RADIATION ONCOLOGY from Last 3 Months Insurance [facility] Care Teams Insert Cutter Relationship Specialty Start Date End Date Hector Cadet MD [address] [place] [address] [place] PCP - General Internal Medicine 05/23/24
--- OUTSIDE RECORDS SUMMARY | 2024-09-24 11:16 | XMS_ITS | Clinical Summary ---
Author Organization Unknown Care Team Providers Care [employer] Teacher Name Role Phone MIKE CARSON, EBONY Unavailable Unavailable PRADIP CLARK, MORRIS Unavailable Unavailable Payers Payer Name Policy Type Policy Number Effective Date Expira tion Date [facility] [employer] [employer] [facility] [id number] MEDICAID [place] [id number] Problems Condition Name Condition Details Condition Category Status Onset Date Resolution Date Last Treatment Date Treating Clinician Comments TYPE 2 DIABETES MELLITUS WITHOUT COMPLICATION S Active 09-16 00:00: 00 Allergies, Adverse Reactions, Alerts Allergy Name Allergy Type Status Severity Reaction(s) Onset Date Inactive Date Treating Clinician Comments SULFA MEDS Propensity to adverse reactions Active 09-18 14:03: 59 ERYTHROMYCIN Propensity to adverse reactions Active 09-18 14:04: 09 CODEINE Propensity to adverse reactions Active 09-18 14:04: 16 Medications Ordered Medication Name Filled Medication Name Start Date Stop Date Current Medication? Ordering Clinician Indication Dosage Frequency Signature (SIG) Comments Components atorvastati n 20 mg tablet 09-18 00:00: 00 Yes [id number] 1 tablet EVERY PM 1 tablet EVERY PM (route: oral) Med Classific ation: Cardiovas cular Therapy Agents cholecalcif israel (vitamin D3) 125 mcg (5,000 unit) capsule 09-18 00:00: 00 Yes [id number] 1 capsule DAILY 1 capsule DAILY (route: oral) Med Classific ation: Electroly te Balance-N utritiona l Products hydroxyzine HCl 25 mg tablet 09-18 00:00: 00 Yes [id number] 1 tablet BEDTIME 1 tablet BEDTIME (route: oral) Med Classific ation: Central Nervous System Agents Lantus Solostar U-100 Insulin 100 unit/mL (3 mL) subcutaneou s pen 09-18 00:00: 00 Yes [id number] 15 unit BEDTIME 15 unit BEDTIME (route: subcutaneo us) Med Classific ation: Endocrine metformin 500 mg tablet 09-18 00:00: 00 Yes [id number] 1 tablet 2 TIMES DAILY 1 tablet 2 TIMES DAILY (route: oral) Med Classific ation: Endocrine sertraline 100 mg tablet 09-18 00:00: 00 Yes [id number] 1.5 tablet DAILY 1.5 tablet DAILY (route: oral) Med Classific ation: Central Nervous System Agents trazodone 100 mg tablet 09-18 00:00: 00 Yes [id number] 1-2 tablet BEDTIME 1-2 tablet BEDTIME (route: oral) Med Classific ation: Central Nervous System Agents Vital Signs Vital Name Observation Time Observation Value Commen ts BMI (%) 2024-09-18 14:11:00.000 28 kg/m2 Height 2024-09-18 14:11:00.000 62 [in_us] Pulse 2024-09-20 12:56:00.000 76 /min Pulse 2024-09-18 14:11:00.000 90 /min O2 Saturation (%) 2024-09-20 12:56:00.000 98 % O2 Saturation (%) 2024-09-18 14:14:00.000 98 % Respirations 2024-09-18 14:11:00.000 20 /min Weight (lbs) 2024-09-18 14:11:00.000 156 [lb_av] Systolic Blood Pressure 2024-09-20 12:55:00.000 136 mm [Hg] Systolic Blood Pressure 2024-09-18 14:11:00.000 140 mm [Hg] Diastolic Blood Pressure 2024-09-20 12:55:00.000 64 mm [Hg] Diastolic Blood Pressure 2024-09-18 14:11:00.000 70 mm [Hg] Plan of Treatment Planned Activity Planned Date Details Comments Future Scheduled Test SKILLED NU RSE TO EVALUATE PATIENT, IDENTIFY PRIMARY AND CO-MORBID CONDITIONS CODED PER CODING GUIDELINES, AND DEVELOP PATIENT SPECIFIC PLAN OF CARE THAT INCLUDES PATIENT GOAL FOR HOME HEALTH. [code = SKILLED NURSE TO EVALUATE PATIENT, IDENTIFY PRIMARY AND CO-MORBID CONDITIONS CODED PER CODING GUIDELINES, AND DEVELOP PATIENT SPECIFIC PLAN OF CARE THAT INCLUDES PATIENT GOAL FOR HOME HEALTH.] Future Scheduled Test SKILLED NU RSE TO O/A OF PATIENTS MENTAL/BEHAVIORAL STATUS, ASSESS VITAL SIGNS EACH VISIT. ALLOW 2 PRNS FOR MEDICATION MANAGEMENT. [code = SKILLED NURSE TO O/A OF PATIENTS MENTAL/BEHAVIORAL STATUS, ASSESS VITAL SIGNS EACH VISIT. ALLOW 2 PRNS FOR MEDICATION MANAGEMENT.] Future Scheduled Test SKILLED NU RSE FOR O/A OF GENERAL HEALTH STATUS OF PAIN, CARDIAC, RESPIRATORY, GASTROINTESTINAL, GENITOURINARY, SKIN, NEUROLOGIC, ENDOCRINE SYSTEMS TO IDENTIFY CHANGES ASSOCIATED WITH EXACERBATION FOR EARLY INTERVENTION OF COMPLICATIONS EACH VISIT. [code = SKILLED NURSE FOR O/A OF GENERAL HEALTH STATUS OF PAIN, CARDIAC, RESPIRATORY, GASTROINTESTINAL, GENITOURINARY, SKIN, NEUROLOGIC, ENDOCRINE SYSTEMS TO IDENTIFY CHANGES ASSOCIATED WITH EXACERBATION FOR EARLY INTERVENTION OF COMPLICATIONS EACH VISIT.] Future Scheduled Test SKILLED NU RSE FOR O/A AND SKILLED TEACHING OF COPING SKILLS TO MANAGE ANXIETY AND MAINTAIN SAFETY. [code = SKILLED NURSE FOR O/A AND SKILLED TEACHING OF COPING SKILLS TO MANAGE ANXIETY AND MAINTAIN SAFETY.] Future Scheduled Test SKILLED NU RSE FOR O/A AND SKILLED TEACHING RELATED TO MANAGEMENT OF DEPRESSIVE SYMPTOMS AND/OR DEPRESSION. SN TO REPORT SIGNIFICANT CHANGE IN DEPRESSIVE SYMPTOMS TO CLINICAL PROVIDER FOR EARLY INTERVENTION. [code = SKILLED NURSE FOR O/A AND SKILLED TEACHING RELATED TO MANAGEMENT OF DEPRESSIVE SYMPTOMS AND/OR DEPRESSION. SN TO REPORT SIGNIFICANT CHANGE IN DEPRESSIVE SYMPTOMS TO CLINICAL PROVIDER FOR EARLY INTERVENTION.] Future Scheduled Test SKILLED NU RSE FOR O/A AND TEACHING OF DIABETIC MANAGEMENT INCLUDING BLOOD SUGAR MONITORING/USE OF GLUCOMETER, DIABETIC DIET, LOWER EXTREMITY SKIN INSPECTION, PROPER SKIN/FOOT CARE, AND SIGNS AND SYMPTOMS HYPO/HYPERGLYCEMIA TO REPORT. [code = SKILLED NURSE FOR O/A AND TEACHING OF DIABETIC MANAGEMENT INCLUDING BLOOD SUGAR MONITORING/USE OF GLUCOMETER, DIABETIC DIET, LOWER EXTREMITY SKIN INSPECTION, PROPER SKIN/FOOT CARE, AND SIGNS AND SYMPTOMS HYPO/HYPERGLYCEMIA TO REPORT.] Future Scheduled Test SKILLED NU RSE TO PERFORM AND RECORD BLOOD SUGAR READING EACH VISIT , AND PRN FOR SIGNS AND SYMPTOMS OF HYPO/HYPERGLYCEMIA. [code = SKILLED NURSE TO PERFORM AND RECORD BLOOD SUGAR READING EACH VISIT , AND PRN FOR SIGNS AND SYMPTOMS OF HYPO/HYPERGLYCEMIA.] Future Scheduled Test PATIENT RUZI S A RISK OF HOSPITALIZATION AND ED USE. SKILLED NURSE TO ESTABLISH SUPPORT MEASURES TO MINIMIZE RISK OF HOSPITALIZATION AND ED USE, AND INSTRUCT PATIENT/CAREGIVER ON METHODS TO REDUCE AVOIDABLE HOSPITALIZATION AND ED USE. [code = PATIENT HAS A RISK OF HOSPITALIZATION AND ED USE. SKILLED NURSE TO ESTABLISH SUPPORT MEASURES TO MINIMIZE RISK OF HOSPITALIZATION AND ED USE, AND INSTRUCT PATIENT/CAREGIVER ON METHODS TO REDUCE AVOIDABLE HOSPITALIZATION AND ED USE.] Future Scheduled Test SKILLED NU RSE TO REVIEW PATIENT MEDICATIONS. INSTRUCT PATIENT/CAREGIVER ON MONITORING OF EFFECTIVENESS, ADVERSE DRUG REACTIONS, SIDE EFFECTS OF ALL MEDICATIONS (PRESCRIPTION/-OTC), AND HOW AND WHEN TO REPORT PROBLEMS. [code = SKILLED NURSE TO REVIEW PATIENT MEDICATIONS. INSTRUCT PATIENT/CAREGIVER ON MONITORING OF EFFECTIVENESS, ADVERSE DRUG REACTIONS, SIDE EFFECTS OF ALL MEDICATIONS (PRESCRIPTION/-OTC), AND HOW AND WHEN TO REPORT PROBLEMS.] Future Scheduled Test SKILLED NU RSE FOR ADMINISTRATION AND TEACHING OF PRESCRIBED INJECTION THERAPY FOR LANTUS. [code = SKILLED NURSE FOR ADMINISTRATION AND TEACHING OF PRESCRIBED INJECTION THERAPY FOR LANTUS.] Future Scheduled Test SKILLED NU RSE TO ASSESS PATIENTS PSYCHOSOCIAL STATUS TO IDENTIFY POTENTIAL ISSUES THAT MAY COMPLICATE THE PROVISION OF THE PLAN OF CARE INCLUDING THE PATIENTS ABILITY TO ACCESS COMMUNITY RESOURCES AND PSYCHOSOCIAL SUPPORT SERVICES. [code = SKILLED NURSE TO ASSESS PATIENTS PSYCHOSOCIAL STATUS TO IDENTIFY POTENTIAL ISSUES THAT MAY COMPLICATE THE PROVISION OF THE PLAN OF CARE INCLUDING THE PATIENTS ABILITY TO ACCESS COMMUNITY RESOURCES AND PSYCHOSOCIAL SUPPORT SERVICES.] Future Scheduled Test SKILLED NU RSE WILL MAINTAIN SITUATIONAL AWARENESS FOR SAFETY AND WILL NOTIFY CLINICAL MIXING TUMBLER OPERATOR AND PHYSICIAN/PROVIDER WITH ANY CHANGE IN CONDITION. [code = SKILLED NURSE WILL MAINTAIN SITUATIONAL AWARENESS FOR SAFETY AND WILL NOTIFY CLINICAL MIXING TUMBLER OPERATOR AND PHYSICIAN/PROVIDER WITH ANY CHANGE IN CONDITION.] Goal Patient Goal - G ET EVERYTHING UNDER CONTROL AND GO CAMPING AGAIN Goal Provider Goal - A PLAN OF CARE WILL BE ESTABLISHED THAT MEETS PATIENT'S JAIL NEEDS AND INCLUDES PATIENT GOAL FOR HOME HEALTH. Goal Provider Goal - ALTERED MENTAL/BEHAVIORAL STATUS WILL BE IDENTIFIED PROMPTLY AND INTERVENTION INITIATED QUICKLY TO MINIMIZE ASSOCIATED RISKS THROUGHOUT CERTIFICATION PERIOD. Goal Provider Goal - CHANGE IN GENERAL HEALTH STATUS WILL BE IDENTIFIED AND REPORTED TO PHYSICIAN FOR PROMPT INTERVENTION TO MINIMIZE ASSOCIATED RISKS THROUGHOUT CERTIFICATION PERIOD. Goal Provider Goal - PATIENT WILL BE ABLE TO PERFORM DAILY FUNCTIONS AND HAVE OPTIMAL IMPROVEMENT IN LEVEL OF ANXIETY THROUGHOUT CERTIFICATION PERIOD. Goal Provider Goal - PATIENT WILL REMAIN SAFE WITHOUT DECOMPENSATION IN DEPRESSIVE CONDITION, WHILE MAINTAINING OPTIMAL LEVEL OF MENTAL HEALTH AND WELL BEING THROUGHOUT CERTIFICATION PERIOD. Goal Provider Goal - PATIENT/CAREGIVER WILL VERBALIZE/DEMONSTRATE KNOWLEDGE OF DIABETIC MANAGEMENT. CHANGES IN DIABETIC STATUS WILL BE IDENTIFIED AND REPORTED TO PHYSICIAN FOR PROMPT INTERVENTION THROUGHOUT THE CERTIFICATION PERIOD. Goal Provider Goal - BLOOD SUGAR READING WILL BE OBTAINED ORDERED THROUGHOUT CERTIFICATION PERIOD. Goal Provider Goal - PATIENT WILL HAVE SUPPORT MEASURES ESTABLISHED TO PREVENT HOSPITALIZATION AND ED USE AND PATIENT/CAREGIVER WILL VERBALIZE/DEMONSTRATE METHODS TO REDUCE AVOIDABLE HOSPITALIZATION AND ED USE BY END OF EPISODE. Goal Provider Goal - PATIENT/CAREGIVER WILL VERBALIZE UNDERSTANDING OF EDUCATION PROVIDED ON MEDICATIONS BY THE END OF THE CERTIFICATION PERIOD. Goal Provider Goal - PATIENT WILL RECEIVE LANTUS ORDERED. PATIENT/CAREGIVER WILL VERBALIZE/DEMONSTRATE KNOWLEDGE OF INJECTION THERAPY BY THE END OF THE CERTIFICATION PERIOD. Goal Provider Goal - PSYCHOSOCIAL NEEDS WILL BE IDENTIFIED AND PLAN IMPLEMENTED TO MINIMIZE RISK THROUGHOUT CERTIFICATION PERIOD. Goal Provider Goal - PATIENT WILL REMAIN SAFE IN THE COMMUNITY AND WILL BE FREE OF DANGER TO SELF AND OTHERS THROUGHOUT THE CERTIFICATION PERIOD. Progress Notes Progress Notes <paragraph>[Visit Date: 2024 by MORRIS MOSELEY RN]:</paragraph><paragraph>NA</paragraph> <paragraph>[Visit Date: 2024 by MORRIS MOSELEY RN]:</paragraph><paragraph>PATIENT IS A 63 YO ENGAGED FEMALE THAT LIVES IN A SINGLE FAMILY HOME WITH HER FIANCE IN [place]. SHE IS BEING SEEN TODAY FOR A SOC. SHE HAS A PRIMARY DX OF NEWLY DX TYPE 2 DIABETES MELLITUS. HER SERUM GLUCOSE LEVEL WAS FOUND TO BE IN THE 600'S DURING ROUTINE LAB WORK. SHE WAS HOSPITALIZED FOR RX. SHE REPORTS HER ONLY SX WAS EXCESSIVE THIRST. HER COMORBITITIES INCLUDE RECENT LEFT BREAST CA THAT REQUIRED RADIATION RX AND SHE JUST COMPLETED RADIATION RX FOR NEWLY DX RIGHT BREAST CA. SHE HAD A LUMPECTOMY BILAT WITH LYMPH NODE REMOVAL ON THE RIGHT. SHE HAS A HX OF DEPRESSION AND ANXIETY AND IS SEEN BY [facility] IN [place]. SHE REPORTS SHE IS NOT HOMEBOUND AND IS ABLE TO DRIVE HERSELF TO APPTS/ERRANDS. HER FIANCE STATES HE ATTENDS APPTS FOR SUPPORT WHEN ABLE. SHE DOES NOT HAVE ANY OTHER COMMUNITY SERVICES AND DENIES NEED. SHE PRESENTS AO X3, CLEAN BUT DISHEVELED, WITH AN ANXIOUS FLAT AFFECT. SHE REPORTS INCREASED ANXIETY R/T DIET MANAGEMENT AND BLOOD SUGAR MANAGEMENT. THEY BOTH EXPRESSED CONCERNS OVER THEIR KNOWLEDGE DEFICIT R/T DM MANAGEMENT. SHE HAS AN ENDOCRONOLOGY APPT ON THE September. EDUCATION PROVIDED ON DIETARY/NUTRITIONAL CLASS REFERRAL AT TIME OF ENDO APPT. SHE WAS EDUCATED ON DIABETIC FOOD CHOICES, PORTION CONTROL, AND MEAL SCHEDULE. EDUCATION PROVIDED ON SX OF HYPER/HYPOGLYCEMIA WITH ACTION TO TAKE AND TO NOTIFY MD. SHE VERBALIZED UNDERSTANDING OF USE OF FLEXPEN AND SHE WAS EDUCATED ON ROTATION SITES. SHE SAW HER PCP DR. EBONY MCKEON IN [place] TODAY, LANTUS DOSE INCREASED TO 15U AT HS. EDUCATION PROVIDED ON APPROPRIATE HS SNACK CHOICES. WILL PRINT OUT DIETARY GUIDELINES TO ASSIST WITH NEEDS UNTIL HER APPT. SHE WILL BE USING A DEXCOM DEVICE THAT WAS CALLED INTO THE PHARMACY TODAY. THEY WERE EDUCATED ON DEVICE USE. THEY VERBALIZED SOME UNDERSTANDING D/T THEY HAVE BEEN REACHING OUT TO FRIENDS THAT USE DEVICE. FASTING CG TODAY WAS 223. HER CG RANGE IS [phone]. MEDICATIONS WERE REVIEWED, SHE WILL SELF MANAGE PO MEDS AND REPORTS COMPLIANCE. THEY REFUSED SNV 5X/WK, THEY WERE AGREEABLE TO 3X/WK. SHE WILL BE SEEN 3WK8 FOR EDUCATION AND MONITORING/MANAGEMENT OF HER DM. SHE IS AT RISK OF DECOMPENSATION AND REHOSPITALIZATION D/T HER DISEASE PROCESS AND DISEASE MANAGEMENT KNOWLEDGE DEFICIT.</paragraph> Encounters Start Date/Time End Date/Time Encounter Type Admission Type Attending Clinicians Care Facility Care Department Encounter ID Discharge Date Discharge Status Discharge Condition Discharge Reason Percent Goals Met 2024-09-18 00:00:00 2024-11-16 00:00:00 Outpatient NEW ADMISSION MORRIS MOSELEY [facility] [id number]
== END 2024-09-24 10:47 | disposition home or self-care (01) ==
LOC: HO.ENCR 09:58
PROVIDERS: PCP Internal Medicine; Visit Provider Nurse Practitioner Adult Health
DX: E11.9 Type 2 diabetes mellitus without complications (principal)
CPT/HCPCS: 95251; 99215; G2211

== ENCOUNTER → 2024-09-24 09:57 | Outpatient (BNVA) | payer OTHER, SELFPAY | PROVIDERS: PCP Internal Medicine; Visit Provider Nurse Practitioner Adult Health | DX: E11.9 Type 2 diabetes mellitus without complications (principal); Z79.4 Long term (current) use of insulin | CPT/HCPCS: 82947; 99212 ==

== ENCOUNTER 2024-10-09 08:57 | Outpatient (AMB) | payer OTHER, SELFPAY ==
[2024-10-09 09:16] VITALS: BMI 28.3
--- NOTE | 2024-10-09 09:16 | A.OFFVIS_ITS ---
VS Expanded 10/09/24 09:16 10/10/24 12:24 Height 5 ft 2 in 5 ft 2 in Weight 154 lb 12.232 oz 154 lb BMI 28.3 28.2 Intake Visit Reasons: T2DM Allergies codeine [CODEINE] Allergy (Intermediate, Verified 09/24/24 10:08) NAUSEA & VOMITING erythromycin base [ERYTHROMYCIN BASE] Allergy (Intermediate, Verified 09/24/24 10:08) NAUSEA & VOMITING Sulfa (Sulfonamide Antibiotics) [SULFA (SULFONAMIDE ANTIBIOTICS)] Allergy (Intermediate, Verified 09/24/24 10:08) HIVES Nutrition Presentation Details: Pt presents for MNT for new onset T2DM Pt presents with during the appointment. Pt and have questions regarding foods choices food frequency fruit: 0-1/d ve/d dairy : 1-2/d fish 0-1/wk starches 20+/d physical activity: sedentary related to tiredness eoth/smoking-denies hx of breast CA, had radiation therapy, noted low H/H and elevated ferritin/low lactate dehydrogenase on labs 09/2024 , not taking MVI BS Monitoring Most Recent Diabetes Results: Creatinine 0.82 mg/dL (0.5-1.4) 09/14/24 Blood Urea Nitrogen 9 mg/dL (9-16) 09/14/24 Sodium 138 mmol/L (135-145) 09/14/24 Potassium 3.8 mmol/L (3.3-5.1) 09/14/24 Chloride 104 mmol/L (96-108) 09/14/24 Carbon Dioxide 25 mmol/L (22-29) 09/14/24 Calcium 9.3 mg/dL (8.4-10.2) 09/14/24 AST 37 U/L (5-31) H 09/12/24 ALT 45 U/L (0-31) H 09/12/24 Total Protein 8.3 g/dL (6.5-8.0) H 09/12/24 Albumin 4.0 g/dL (3.5-5.0) 09/12/24 PHZ-Sbghkbq-Oa.Jeor Equation Height: 5 ft 2 in Weight: 154 lb Resting Metabolic Rate: 1216.04 Calculated Activity Level: Mild Activity Calories Needed to Maintain Weight: 1672.06 Diagnosis Nutrition problem #1: food nutri know defi As related to (etiology) #1: diagnosis As evidenced by (sign/symptom) #1: knowledge deficit of diet (recent DM dx) PFSH Medical History Hiatal hernia Arthritis Pre-diabetes History of radiation therapy Ductal carcinoma in situ (DCIS) of left breast Depression Hypercholesterolemia COPD (chronic obstructive pulmonary disease) Surgical History History of lumpectomy of right breast (04/11/24) Hx of abdominoplasty Hx of excision of mass H/O colonoscopy History of lumpectomy of left breast Status post laparoscopic Shireen fundoplication (~08/2009) Family History Mother History of breast cancer Brother Sweat gland carcinoma Social History Household Members: Significant Other Housing: House Are you a primary medication care manager to a significant other at home: No Alcohol intake: current Alcohol intake frequency: 0-2 drinks per day Alcohol type: wine Patient Tobacco Use Status: Former Tobacco user Tobacco use type: Cigarette Cigarette Packs Per Day: 1 Years Smoked: 25 Substance Use Type: Marijuana service: No Current occupational status: retired Assessment & Plan Assessment & Plan (1) New onset type 2 diabetes mellitus: Code(s): E11.9 - Type 2 diabetes mellitus without complications Category: Medical Plan: Wt: 70 Kg ( 11/01 ) Est kcal needs as per MSJ: 1700 (40% carb, 30% protein/fat) Est fluid needs as per 25-30 ml/d: 2100 Est prot per day as per 1 g/kg bw: 70 Recommend fiber intake : 8-10 g per day and gradually increase to 25-28 g per day for women and 35-38 g for men or as tolerated Recommend sodium intake per day : less than 2000 mg Educated patient on: ( R = reviewed V = verbalizes understanding N/R = needs review N/A = not applicable * Food sources of carbohydrate, adequate serving sizes and its role in various health conditions: R * Differences between complex carbohydrates a simple carbohydrates, role of fiber in diet: R * Lean protein sources of foods: R * Differences between types of fats and role in diet (mono on saturated fat fatty acids, saturated fatty acids, trans fats): R V N/R * Food sources of sodium in salt and healthy modifications for heart health in kidney health: R V R/V * Vitamins and minerals: R V N/R * Healthy plate method concept: R * Physical activity: Benefits a precaution: R V N/R * Hypoglycemia protocol (rule of 15): R V N/R * Dietary prevention of Hyperglycemia: R V R/V Patient Instructions: include iron rich foods n your diet along with vitamin C sources of foods see meal ideas consisting fo 45-60 g carb per meal and including 2-3 oz of protein per meal and 1-2 oz with a snack Coding Level of Care Code Nutr Indiv Intake (10204) Diagnoses New onset type 2 diabetes mellitus E11.9 Time Spent (min) 30
--- OUTSIDE RECORDS SUMMARY | 2024-10-09 09:42 | XMS_ITS | Clinical Summary ---
Author Organization [facility] Address [address] [place] [phone] Phone Care Team Providers Care Health Information Technologist Name Role Phone Hector Cadet MD Primary Care Provider [phone] Allergies Active Allergy Reactions Criticality Noted Date [...] Cancer Staging:Pathologic:Stage IA(pT1b, pN0, cM0, G1, ER+, [place]-, HER2-, Oncotype DX score: 19) - Signed by Claudia Silverio MD on 05/29/2024 Arthritis 05/23/2024 COPD (chronic obstructive pulmonary disease) Depression 05/23/2024 Ductal carcinoma in situ (DCIS) of left breast 1 07/23/2023 Hiatal hernia 05/23/2024 History of radiation therapy 05/23/2024 Hypercholesterolemia 05/23/2024 Pre-diabetes 05/23/2024 Encounters Date Type Department Care Team Description 08/21/2024 12:54 PM EST - 08/21/2024 11:59 PM EST Hospital Encounter [facility] [address] [place] [phone] Taylor Coulter NP Malignant neoplasm of upper-outer quadrant of right breast in female, estrogen receptor positive (CMS/HCC) (Primary Dx) Discharge Disposition: Home or Self Care 07/23/2024 10:45 AM EST - 07/23/2024 11:59 PM EST Hospital Encounter [facility] [address] [place] [phone] Taylor Coulter NP Malignant neoplasm of upper-outer quadrant of right breast in female, estrogen receptor positive (CMS/HCC) (Primary Dx) Discharge Disposition: Home or Self Care 07/23/2024 10:37 AM EST - 07/23/2024 11:59 PM EST Hospital Encounter [facility] [address] [place] [phone] Claudia Silverio MD Discharge Disposition: Home or Self Care 07/22/2024 10:39 AM EST - 07/22/2024 11:59 PM EST Hospital Encounter [facility] [address] [place] [phone] Discharge Disposition: Home or Self Care 07/19/2024 10:50 AM EST - 07/19/2024 11:59 PM EST Hospital Encounter [facility] [address] [place] [phone] Alondra Tang MD Malignant neoplasm of upper-outer quadrant of right breast in female, estrogen receptor positive (CMS/HCC) (Primary Dx) Discharge Disposition: Home or Self Care 07/19/2024 10:35 AM EST - 07/19/2024 11:59 PM EST Hospital Encounter [facility] [address] [place] [phone] Discharge Disposition: Home or Self Care 07/18/2024 10:51 AM EST - 07/18/2024 11:59 PM EST Hospital Encounter [facility] [address] [place] [phone] Alnodra Tang MD Discharge Disposition: Home or Self Care 07/18/2024 10:37 AM EST - 07/18/2024 11:59 PM EST Hospital Encounter [facility] [address] [place] [phone] Discharge Disposition: Home or Self Care 07/17/2024 10:36 AM EST - 07/17/2024 11:59 PM EST Hospital Encounter [facility] [address] [place] [phone] Discharge Disposition: Home or Self Care 07/16/2024 10:36 AM EST - 07/16/2024 11:59 PM EST Hospital Encounter [facility] [address] [place] [phone] Discharge Disposition: Home or Self Care 07/15/2024 2:09 PM EST - 07/15/2024 11:59 PM EST Hospital Encounter [facility] [address] [place] [phone] Discharge Disposition: Home or Self Care 07/15/2024 10:38 AM EST - 07/15/2024 11:59 PM EST Hospital Encounter [facility] [address] [place] [phone] Discharge Disposition: Home or Self Care 07/12/2024 10:49 AM EST - 07/12/2024 11:59 PM EST Hospital Encounter [facility] [address] [place] [phone] Claudia Silverio MD Malignant neoplasm of upper-outer quadrant of right breast in female, estrogen receptor positive (CMS/HCC) (Primary Dx) Discharge Disposition: Home or Self Care 07/12/2024 10:39 AM EST - 07/12/2024 11:59 PM EST Hospital Encounter [facility] [address] [phone] Discharge Disposition: Home or Self Care 07/11/2024 10:36 AM EST - 07/11/2024 11:59 PM EST Hospital Encounter [facility] [address] [phone] Discharge Disposition: Home or Self Care from Last 3 Months Surgical History Surgery Date Site/Laterality Comments COLONOSCOPY BREAST LUMPECTOMY Left BREAST LUMPECTOMY 04/11/2024 Right BELT ABDOMINOPLASTY Medical History Medical History Date Comments Breast cancer S/P laparoscopic fundoplication Shingles H/O abdominoplasty COPD (chronic obstructive pulmonary disease) (CM S/HCC) Invasive ductal carcinoma of right breast 2023 Family History Medical History Relation Name Comments [...] Cancer Screening: Pap Smear 10/08/1983 RSV Immunization Adult Patients (1 - Risk 60-74 years 1-dose series) [...] TREATMENT SUMMARY Routine 07/11/2024 10:47 AM EST from Last 3 Months Results [...] GY ORDERABLES Final Result Performing Organization Address City/[facility]/ZIP Co de Phone Number [facility] [...] GY ORDERABLES Final Result Performing Organization Address City/[facility]/ZIP Co de Phone Number [facility] [...] GY ORDERABLES Final Result Performing Organization Address City/State/[facility] Co de Phone Number [facility] from Last 3 Months Insurance [facility] Care Teams Health Information Technologist Relationship Specialty Start Date End Date Hector Cadet MD [address] [place] [address] PCP - General Internal Medicine 05/23/24
--- OUTSIDE RECORDS SUMMARY | 2024-10-09 09:42 | XMS_ITS ---
Author Organization [facility] Address [address] [place] [phone] Phone Care Team Providers Care Visual Associate Name Role Phone Hector Cadet MD Primary Care Provider [phone] Active Problems Problem Noted Date Diagnosed Date Malignant neoplasm of upper- outer quadrant of right breast in female, estrogen receptor positive 05/29/2024 Breast cancer of upper-outer quadrant of right female breast 05/23/2024 Cancer Staging:Pathologic:Stage IA(pT1b, pN0, cM0, G1, ER+, [place]-, HER2-, Oncotype DX score: 19) - Signed [...]
[2024-10-22 10:25] VITALS: BMI 28.2
== END 2024-10-09 09:48 | disposition home or self-care (01) ==
LOC: HO.ENCR 08:58
PROVIDERS: PCP Internal Medicine; Visit Provider Dietitian, Registered
DX: E11.9 Type 2 diabetes mellitus without complications (principal)

== ENCOUNTER → 2024-10-09 08:57 | Outpatient (BNVA) | payer OTHER, SELFPAY | PROVIDERS: PCP Internal Medicine; Visit Provider Dietitian, Registered | DX: E11.9 Type 2 diabetes mellitus without complications (principal); Z71.3 Dietary counseling and surveillance | CPT/HCPCS: 97802 ==

== ENCOUNTER 2024-11-26 12:29 | Outpatient (REF) | payer OTHER, SELFPAY ==
--- NOTE | ~2024-11-26 | MM_ITS ---
EXAMINATION: MM DIAGNOSTIC DIGITAL BREAST TOMOSYNTHESIS, BILATERAL CLINICAL INFORMATION: History of bilateral breast cancer 2020 status post lumpectomy and right in 2023 status post lumpectomy. COMPARISON: Mammography: Comparison is made with relevant prior exams. TECHNIQUE: Digital breast mammography with tomosynthesis is performed in both the craniocaudal and mediolateral oblique views along with computer-aided detection (CAD). FINDINGS: The breasts are heterogeneously dense, which may obscure small masses (ACR BI-RADS breast composition Category c). Bilateral post lumpectomy changes are stable. There are no significant masses, abnormal calcifications, or other abnormalities. Results are provided to the patient at time of visit by the technologist. MM/MM tomosynthesis diagnostic BI IMPRESSION: Bilateral post lump ectomy changes from bilateral breast cancer which are stable. ASSESSMENT: BI-RADS BI-RADS 2 - Benign Findings RECOMMENDATION: 1 year F/U This patient's information was entered into a reminder system with a target due date for their next mammogram. Electronically signed by: Cordelia Miles DO 11/26/2024 01:38 PM EDT
--- OUTSIDE RECORDS SUMMARY | 2024-11-26 13:33 | XMS_ITS ---
Author Organization [facility] Address [address] [place] [phone] Phone Care Team Providers Care Assistant Child Care Teacher Name Role Phone Hector Cadet MD Primary Care Provider [phone] Active Problems Problem Noted Date Diagnosed Date Malignant neoplasm of upper- outer quadrant of right breast in female, estrogen receptor positive (CMS/HCC V24, CMS/HCC V28) 05/29/2024 Breast cancer of upper-outer quadrant of right female breast (CMS/HCC V24, CMS/HCC V28) 05/23/2024 Cancer Staging:Pathologic:Stage IA(pT1b, pN0, cM0, G1, ER+, [place]-, HER2-, Oncotype DX score: 19) - Signed by Claudia Silverio MD on 05/29/2024 Arthritis 05/23/2024 COPD (chronic obstructive pu lmonary disease) (CMS/HCC V24, CMS/HCC V28) 05/23/2024 Depression 05/23/2024 Ductal carcinoma in situ (DCIS) [...]
--- OUTSIDE RECORDS SUMMARY | 2024-11-26 13:34 | XMS_ITS | Clinical Summary ---
Author Organization [facility] Address [address] [place] [phone] Phone Care Team Providers Care Art Tracer Name Role Phone Hector Cadet MD Primary Care Provider [phone] Allergies Active Allergy Reactions Criticality Noted Date [...] Cancer Staging:Pathologic:Stage IA(pT1b, pN0, cM0, G1, ER+, [place]-, HER2-, Oncotype DX score: 19) - Signed by Claudia Silverio MD on 05/29/2024 Arthritis 05/23/2024 COPD (chronic obstructive pu lmonary disease) ([facility] V24, [facility] V28) 05/23/2024 Depression 05/23/2024 Ductal carcinoma in situ (DCIS) of left breast 1 07/23/2023 Hiatal hernia 05/23/2024 History of radiation therapy 05/23/2024 Hypercholesterolemia 05/23/2024 Pre-diabetes 05/23/2024 Surgical History Surgery Date Site/Laterality Comments COLONOSCOPY BREAST LUMPECTOMY Left BREAST LUMPECTOMY 04/11/2024 Right BELT ABDOMINOPLASTY Medical History Medical History Date Comments Breast cancer ([facility] V24, [facility] V28) S/P laparoscopic fundoplication Shingles H/O abdominoplasty COPD (chronic obstructive pu lmonary disease) ([facility] V24, [facility] V28) Invasive ductal carcinoma of right breast ([facility] V24, [facility] V28) 05/23/2024 Family History Medical History Relation Name [...] Influencers of Health Screening 05/13/2024 COVID-19 Vaccine ( season) 2024 04/03/2024, 05/12/2023, 03/29/2022, Additional history exists Influenza Vaccine Completed [...] age to complete this topic Meningococcal B Vaccine Aged Out No l onger eligible based on patient's age to complete this topic RSV Immunization Patients Under 20 months Aged Out No longer eligible based on patient's age to complete this topic Varicella Vaccines Aged Out No longer eligible based on patient's age to complete this topic Insurance [facility] [employer] Care Teams Art Tracer Relationship Specialty Start Date End Date Hector Cadet MD [address], [place] PCP - General Internal Medicine 05/23/24
== END 2024-11-26 12:30 | disposition home or self-care (01) ==
LOC: HO.MAMMO 12:29
PROVIDERS: Absent Provider Internal Medicine Medical Oncology; PCP Internal Medicine; Visit Provider Surgery
DX: Z85.3 Personal history of malignant neoplasm of breast (principal)
CPT/HCPCS: 77062; 77066

== ENCOUNTER → 2024-11-26 12:30 | Outpatient (BNV) | payer OTHER, SELFPAY | PROVIDERS: Absent Provider Internal Medicine Medical Oncology; PCP Internal Medicine; Visit Provider Internal Medicine | DX: Z85.3 Personal history of malignant neoplasm of breast (principal) | CPT/HCPCS: 77062; 77066 ==

== ENCOUNTER 2024-12-27 09:04 | Outpatient (AMB) | payer OTHER, SELFPAY ==
--- NOTE | 2024-12-27 07:53 | A.OFFVIS_ITS ---
Vital Signs 12/27/24 09:11 Height 5 ft 2 in Weight 152 lb 1.903 oz BMI 27.8 BP 150/84 H Blood Pressure Location Rt brachial Position Sitting Pulse 70 Pulse Source Pulse Oximeter Pulse Oximetry (%) 99 Oxygen Delivery Method Room Air Intake Visit Reasons: T2DM Intake Note: Patient presents today for a follow-up on Type 2 Diabetes Mellitus: Last Diabetic eye exam was on: DUE Last Podiatry exam was on: Patient does not see a Mail Processing Associate Most recent HbA1c: 6.2%, 12/27/2024 Random Glucose: 128 mg/dL Plow Shaker Required: No Accompanied by: Self / Same As Patient Allergies codeine (CODEINE) Allergy (Intermediate, Verified 11/26/24 09:55) NAUSEA & VOMITING erythromycin base (ERYTHROMYCIN BASE) Allergy (Intermediate, Verified 11/26/24 09:55) NAUSEA & VOMITING Sulfa (Sulfonamide Antibiotics) (SULFA (SULFONAMIDE ANTIBIOTICS)) Allergy (Intermediate, Verified 11/26/24 09:55) HIVES HPI Comments Details: 64 YO female who is seen in f/u for DM. She was seen as a new consult 3 months ago. She was diagnosed with prediabetes approx 03/2024. She was hospitalized early September with a glucose in the 600 range and in TEOFILO which has resolved. A1C 12/27/24 % 09/12/24 9.9% Initially diagnosed with T2DM in 2024. Was initially started on treatment with Lantus and metformin. May not be a good candidate for a GLP 1 agonist as she has had significant GERD in the past and had esophageal surgery in the past Has had several uti's in the past Current regimen: Lantus 15 units metformin 500 mg b.i.d. Dexcom average glucose: 135 14 day continuous glucose monitor report reviewed Glucose Managment indicator 6.5 % Days with CGM data 95 % TIme in ranges: 0 % very high (above 250) 7 % high ?(181-250) 93 % in range ?(70-180] 0 % low (69-55) 0 % ?very low (below 54) 19.5 coefficient of variance desired less than 36 % Interpretation excellent glycemic control without hypoglycemia Reports low sugars none Family history of T2DM in brother Denies retinopathy. Last eye exam she has done annually Denies neuropathy, last foot exam today Denies nephropathy 09/14/2024 eGFR>60 UA neg for protein TEOFILO 10/01 resolved Has HLD, on Denies CAD. Currently being treated for breast cancer: Has completed treatment we will follow up with Oncology in 3 months Reports some depression secondary to the breast cancer. She has seen a clinical psychologist Diet: Balanced trying to follow the plate method. Requests to see RD and will Emma Rosario RD Weight: Stable She has recently started and has a goal to walk 1 mi daily. [facility] Medical History Hiatal hernia Arthritis Pre-diabetes History of radiation therapy Ductal carcinoma in situ (DCIS) of left breast Depression Hypercholesterolemia COPD (chronic obstructive pulmonary disease) Surgical History History of lumpectomy of right breast (04/11/24) Hx of abdominoplasty Hx of excision of mass H/O colonoscopy History of lumpectomy of left breast Status post laparoscopic Shireen fundoplication (~08/2009) Family History Mother History of breast cancer Brother Sweat gland carcinoma Social History Household Members: Significant Other Housing: House Are you a primary ambulatory care nurse to a significant other at home: No Alcohol intake: current Alcohol intake frequency: 0-2 drinks per day Alcohol type: wine Patient Tobacco Use Status: Former Tobacco user Tobacco use type: Cigarette Cigarette Packs Per Day: 1 Years Smoked: 25 Substance Use Type: Marijuana service: No Current occupational status: retired Physical Exam Vital Signs: BMI result Body Mass Index 27.8 Results AMB Hemoglobin A1c AMB Hemoglobin A1c 6.2 % Last Edit by PAULA Quiroz on 12/27/24 09:27 Assessment & Plan Assessment & Plan Orders: Orders AMB Hemoglobin A1c Today E11.9 - Type 2 diabetes mellitus without complications Medications: Changed From pen needle, diabetic Use four times a day or as directed. 100 ea 0RF E11.9 - Type 2 diabetes mellitus without complications To pen needle, diabetic once daily 100 ea 3RF E11.9 - Type 2 diabetes mellitus without complications Discontinued dextrose 40% (Glutose-15) Discontinued Reason: Doctor's Order 15 grams See Protocol PO Q15M PRN 112.5 grams 0RF Per Hypoglycemia Standing Ord. Coding
[2024-12-27 09:11] VITALS: BP 150/84; PULSE 70; O2SAT 99; BMI 27.8
--- OUTSIDE RECORDS SUMMARY | 2024-12-27 09:17 | XMS_ITS ---
Author Organization [facility] Address [address] [place] [phone] Phone Care Team Providers Care Hvac Service Manager Name Role Phone Hector Cadet MD Primary Care Provider [phone] Active Problems Problem Noted Date Diagnosed Date Malignant neoplasm of upper- outer quadrant of right breast in female, estrogen receptor positive (CMS/HCC V24, CMS/HCC V28) 05/29/2024 Breast cancer of upper-outer quadrant of right female breast (CMS/HCC V24, CMS/HCC V28) 05/23/2024 Cancer Staging:Pathologic:Stage IA(pT1b, pN0, cM0, G1, ER+, [place]-, HER2-, Oncotype DX score: 19) - Signed [...]
[2024-12-27 09:21] LABS: Glucose, Whole Blood 128 mg/dL (60-115)
== END 2024-12-27 09:39 | disposition home or self-care (01) ==
LOC: HO.ENCR 09:05
PROVIDERS: PCP Internal Medicine; Visit Provider Nurse Practitioner Adult Health
DX: E11.9 Type 2 diabetes mellitus without complications (principal)

== ENCOUNTER → 2024-12-27 09:04 | Outpatient (BNVA) | payer OTHER, SELFPAY | PROVIDERS: PCP Internal Medicine; Visit Provider Nurse Practitioner Adult Health | DX: E11.9 Type 2 diabetes mellitus without complications (principal); D05.12 Intraductal carcinoma in situ of left breast; Z79.4 Long term (current) use of insulin; Z79.84 Long term (current) use of oral hypoglycemic drugs | CPT/HCPCS: 82947; 83036; 99212 ==

== ENCOUNTER 2025-03-04 10:55 | Outpatient (AMB) | payer OTHER, SELFPAY ==
--- NOTE | 2025-03-04 10:59 | A.OFFVIS_ITS ---
Vital Signs 3 03/04/25 11:06 Height 5 ft 2 in Weight 153 lb BMI 28.0 BP 147/66 H Blood Pressure Location Lt brachial Position Sitting Pulse 91 Intake Visit Reasons: 6m Rt brst lumpectomy Intake Note: Patient is seen in office for 6 month follow up visit, breast exam. Pt c/o: right nipple feels thick like a scab is forming per pt (inverted nipple), denies discharge, redness, swelling or pain or other concerns mm:11/26/24 Assistant Womens Volleyball Coach Required: No Clinical Case Manager: Clinical Case Manager Present Accompanied by: Family/Other Allergies codeine (CODEINE) Allergy (Intermediate, Verified 03/04/25 11:06) NAUSEA & VOMITING erythromycin base (ERYTHROMYCIN BASE) Allergy (Intermediate, Verified 03/04/25 11:06) NAUSEA & VOMITING Sulfa (Sulfonamide Antibiotics) (SULFA (SULFONAMIDE ANTIBIOTICS)) Allergy (Intermediate, Verified 03/04/25 11:06) HIVES HPI Comments Details: 64-year-old female patient returning 10 months following right breast lumpectomy and right axillary sentinel node biopsy for invasive ductal carcinoma performed on 04/11/2024. Her past history is significant for left breast DCIS s/p left breast lumpectomy on 07/12/2019 and subsequent wider excision for positive margins on 10/09/2019 (Dr. Bobo). She underwent radiation therapy at [facility]. Mammogram of 02/27/2024 with follow-up images and ultrasound of 03/01/2024 revealed a density in the right breast at the 10 o'clock position approximately 8 cm from the nipple. ?The density was felt to be suspicious and an ultrasound- guided core biopsy revealed invasive ductal carcinoma, grade 1, ER/DE positive, HER2 Pallavi negative, Ki-67 low.? She subsequently underwent the right breast lumpectomy with right axillary sentinel node biopsy on 04/11/2024. Pathology confirmed invasive ductal carcinoma grade 1, 9 mm size with DCIS grade 1 both with negative margins of at least 5 mm. 0/3 sentinel nodes revealed metastatic disease (pT1b N0(sn) AJCC Stage 8th ed).?? She was evaluated by Dr. Callahan and started on Arimidex 1 mg p.o. daily. She completed radiation therapy but does have some pain still in the right breast extending into the axilla. Her most recent mammogram performed on 11/26/2024 revealed postop changes but no mammographic evidence of malignancy (BI-RADS 2). [facility] Medical History Hiatal hernia Arthritis Pre-diabetes History of radiation therapy Ductal carcinoma in situ (DCIS) of left breast Depression Hypercholesterolemia COPD (chronic obstructive pulmonary disease) Surgical History History of lumpectomy of right breast (04/11/24) Hx of abdominoplasty Hx of excision of mass H/O colonoscopy History of lumpectomy of left breast Status post laparoscopic Shireen fundoplication (~08/2009) Family History Mother History of breast cancer Brother Sweat gland carcinoma Social History Household Members: Significant Other Housing: House Are you a primary wound care rn to a significant other at home: No Alcohol intake: current Alcohol intake frequency: 0-2 drinks per day Alcohol type: wine Patient Tobacco Use Status: Former Tobacco user Tobacco use type: Cigarette Cigarette Packs Per Day: 1 Years Smoked: 25 Substance Use Type: Marijuana service: No Current occupational status: retired Review of Systems Const All systems reviewed & are unremarkable except as noted in HPI and below Reports other (Hot flashes) Physical Exam Const General: comfortable, no acute distress and alert Neck Neck: Yes normal visual inspection, Yes trachea midline and Yes supple Lymphatic: no lymphadenopathy noted Chest Other: Right breast incision in the upper outer quadrant clean, dry and intact. No hematoma or seroma appreciated. Minimal RT changes in the right breast. No evidence of lymphedema. No new palpable mass or skin change. Left breast with no new skin change, nipple discharge, palpable mass or enlarged lymph nodes. Left nipple inverted. Chest/axillae images: 2 1. Incision clean and intact. Right nipple inverted, no ulceration or mass appreciated. Resp Effort & Inspection: normal respiratory effort Auscultation: clear to auscultation bilaterally GI Other: Diastasis recti noted. Small umbilical hernia noted just above the umbilicus, easily reducible with light pressure. Nontender to palpation. Inspection: Yes normal to inspection Skin Other: normal color, warm and dry Neuro Other: Mobility Assessment: 1. 3 meter assessment time (seconds): 5 2. Gait observations: Normal balance and gait Assessment & Plan Assessment & Plan (1) Invasive ductal carcinoma of right breast: Code(s): C50.911 - Malignant neoplasm of unspecified site of right female breast Category: Medical (2) Ductal carcinoma in situ (DCIS) of left breast: Code(s): D05.12 - Intraductal carcinoma in situ of left breast Category: Medical Plan 64-year-old female patient with a prior history of DCIS left breast now presenting with a new invasive ductal carcinoma right breast, status post right breast lumpectomy with sentinel node biopsy. She was evaluated by Dr. Callahan and started on anastrozole 1 mg p.o. daily. She completed radiation therapy at [facility]. Examination today reveals well-healed bilateral breast incisions with no new suspicious findings in either breast. She tolerated the radiation well with good skin condition. Mammogram dated 11/26/2024 revealed no mammographic evidence of malignancy (BI-RADS 2). She will follow up in 6 months, sooner PRN. Coding Level of Care Code Est Pt Level 3 (25718) Complex EM visit Add On G2211 Diagnoses Invasive ductal carcinoma of right breast C50.911 Ductal carcinoma in situ (DCIS) of left breast D05.12
[2025-03-04 11:06] VITALS: BP 147/66; PULSE 91; BMI 28.0
--- OUTSIDE RECORDS SUMMARY | 2025-03-04 11:48 | XMS_ITS | Clinical Summary ---
Author Organization [facility] Address [address] [place] [phone] Phone Care Team Providers Care Chimney Builder Helper Name Role Phone Hector Cadet MD Primary Care Provider [phone] Allergies Active Allergy Reactions Criticality Noted Date [...] 05/23/2024 COPD (chronic obstructive pu [place]monary disease) [place] [place] [facility] V28) 05/23/2024 Depression 05/23/2024 Ductal carcinoma in situ (DCIS) of left breast 1 07/23/2023 Hiatal hernia 05/23/2024 History of radiation therapy 05/23/2024 Hypercholesterolemia 05/23/2024 Pre-diabetes 05/23/2024 Surgical History Surgery Date Site/Laterality Comments COLONOSCOPY BREAST LUMPECTOMY Left BREAST LUMPECTOMY 04/11/2024 Right BELT ABDOMINOPLASTY Medical History Medical History Date Comments Breast cancer ([facility] [place], [facility] V28) S/P laparoscopic fundoplication Shingles H/O abdominoplasty COPD (chronic obstructive pu lmonary disease) [place] [place] [facility] [place]) Invasive ductal carcinoma of right breast [place] [place], [facility] [place]) 05/23/2024 Family History Medical History Relation [...] 88 08/21/2024 1:01 PM EST Temperature 36.3 C (97.3 F) 08/21/2024 1:01 PM EST Respiratory Rate 16 08/21/2024 1:01 PM EST [...] Years (1 of 2 - PCV) 1981 Zoster Vaccines (1 of 2) 1981 Cervical Cancer Screening: Pap Smear 10/08/1983 RSV Immunization Adult Patients (1 - Risk 60-74 years 1-dose series) 2022 Cholesterol Screening (Lipid Panel) 05/13/2024 Colorectal Cancer Screening: Colonoscopy 05/13/2024 HIV Screening 05/13/2024 Hepatitis C Screening 05/13/2024 Social Influencers of Health Screening 05/13/2024 Depression Screening 07/10/2024 COVID-19 Vaccine ( season) 2024 04/03/2024, 05/12/2023, 03/29/2022, Additional history exists Influenza Vaccine (#1) 2025 , 05/12/2023, 05/16/2022, Additional history exists HIB Vaccines Aged [...] patient's age to complete this topic Insurance [facility] Care Teams Chimney Builder Helper Relationship Specialty Start Date End Date Hector Cadet MD [address] [place] [address] PCP - General Internal Medicine 05/23/24
--- OUTSIDE RECORDS SUMMARY | 2025-03-04 11:48 | XMS_ITS | Clinical Summary ---
Author Organization [facility] Address [address] [place] [phone] Phone Care Team Providers Care Studio Camera Operator Name Role Phone Hector Cadet MD Primary Care Provider [phone] Allergies Active Allergy Reactions Criticality Noted Date Comments Codeine GI Upset 05/27/2010 Macrolide Antibiotics GI Upset 05/27/2010 Sulfa (Sulfonamide Antibiotics) Hives 05/10 Active Problems Problem Noted Date Diagnosed Date Rosacea 05/27/2010 Overview (08/30/2014): Rosacea Posttraumatic stress disorder 05/27/2010 Overview (08/30/2014): Posttraumatic stress disorder Social History Tobacco Use Types Packs/Day Years Used Date Smoking Tobacco: Never Assessed Education Answer Date Recorded Are you interested in more education? Not on rod e 09/14/2024 Are you concerned about learning? Not on file 09/14/2024 No 09/14/2024 No 09/14/2024 Digital Access Answer Date Recorded No 09/14/2024 No 09/14/2024 Reliable internet access at home? Not on file 09/14/2024 Device with a working camera? Not on file Comments Unknown Sex and Gender Information Value Date Recorded Sex Assigned at Not on file Legal Sex Female 8:23 AM EST Gender Identity Not on file Sexual Orientation Not on file Plan of Treatment Not on file Medical Devices Not on file Insurance [employer], [place] [employer] [place] [employer] [place] [address] [address] [address] [place] [employer] [place] [address] [place] [address] [place] [employer] [place] [address] [place] [address] [place] [employer] [place] [employer] [address] [place] [address] [employer] [address] [place] [address] [employer] [facility] [employer] [employer] Care Teams Studio Camera Operator Relationship Specialty Start Date End Date Hector Cadet MD [address] [place] [id number] PCP - General Internal Medicine 09/14/24 Additional Source Comments The information contained in this document represents components of the legal health record. It is not the complete legal health record.[facility]
--- OUTSIDE RECORDS SUMMARY | 2025-03-04 11:48 | XMS_ITS ---
Author Organization [facility] Address [address] [place] [phone] Phone Care Team Providers Care Audit Reviewer Name Role Phone Hector Cadet MD Primary Care Provider [phone] Active Problems Problem Noted Date Diagnosed Date [...] 05/23/2024 COPD (chronic obstructive pu lmonary disease) ([facility] V24, [facility] V28) 05/23/2024 Depression 05/23/2024 Ductal [...]
--- OUTSIDE RECORDS SUMMARY | 2025-03-04 11:49 | XMS_ITS | Patient Health Record ---
Author Organization [facility] Address [address] [place] [address] Care Team Providers Care Project Accountant Name Role Phone Chichi (RETIRED) Hector CARSON Primary Care Provider Unavailable Angelito Leonard Unavailable [phone] Allergies Allergen (clinical drug ingredient) Drug/Non Drug Allergy documented on EMR Reaction Allergy Type Onset Date Status Sulfa hives Drug Allergy Active erythromycin Erythromycin nausea/vomiting Drug Allergy Active codeine Codeine Sulfate nausea/vomiting Drug Allergy Active Reason For Referral No Information Medications Medication SIG (Take, Route, Frequency, Duration) Notes Start Date End Date Status Zoloft 100 MG 1 tablet Orally Once a day Active Lunesta 3 MG 1 tablet immediately before bedtime Orally Once a day Active ALPRAZolam 0.5 MG 1 tablet Orally Thre e times a day Active Colyte w Flavor Packs 240 GM as directed Orally as directed for 1 day(s) 03/13/2014 Active Lotemax 0.5 % 1 drop into affected eye Ophthalmic Four times a day Active Restasis 0.05 % 1 into affected eye Ophthalmic Twice a day Active Fluticasone Propionate 50 MCG/ACT 1 spray in each nostril Nasally Once a day Active Flonase 50 MCG/ACT 1 spray in each nost ril Nasally Once a day Active Prempro 0.3-1.5 MG 1 tablet Orally Once a day Active Capsaicin APR 0.025 % 1 application to a ffected area Externally Three times a day Active Problems Problem Type SNOMED Code ICD Code Onset Dates Problem Status W/U Status Risk Notes Problem Blood in stool (578.1) Active confirmed Plan Of Treatment Future Test Test Name Order Date COLONOSCOPY 03/13/2014 Insurance Providers Payer Name Payer Address Payer Phone Subscriber Number Group Number Insured Name Patient Relationship to Insured Coverage Start Date Coverage End Date [facility] [address] [place] [phone] [id number] FALGUNI BROWN Self - patient is the insured Medical (General) History Medical History History ICD Code asthma - mild--flares up with a respirat ory infection GERD--s/p lap Shireen at [facility] by Dr Hermann brody in the --good relief insomnia depression anxiety fibrocystic breast disease severe conjunctivitis with temporary los s of vision Denies NV,DM,CVA,renal disease Surgical History Surgery Date(Month/Year) Breast [id number] Abdominoplasty Lap Shireen fundoplication at [facility] with Dr. Maldonado
== END 2025-03-04 11:19 | disposition home or self-care (01) ==
LOC: HO.HGS 10:55
PROVIDERS: PCP Internal Medicine; Visit Provider Surgery
DX: C50.911 Malignant neoplasm of unspecified site of right female breast (principal)
CPT/HCPCS: 99213

== ENCOUNTER → 2025-03-04 10:55 | Outpatient (BNVA) | payer OTHER, SELFPAY | PROVIDERS: PCP Internal Medicine; Visit Provider Surgery | DX: C50.911 Malignant neoplasm of unspecified site of right female breast (principal); Z85.3 Personal history of malignant neoplasm of breast | CPT/HCPCS: 99212 ==

== ENCOUNTER 2025-06-27 08:58 | Outpatient (AMB) | payer OTHER, SELFPAY ==
--- NOTE | 2025-06-27 09:00 | MHC.OFFVIS ---
Vital Signs 06/27/25 09:04 Height 5 ft 2 in Weight 154 lb 8.705 oz BMI 28.3 BP 116/54 L Blood Pressure Location Rt brachial Position Sitting Pulse 86 Pulse Source Pulse Oximeter Pulse Oximetry (%) 97 Oxygen Delivery Method Room Air Intake Visit Reasons: Type 2 dm Intake Note: Patient presents today for a follow-up on Type 2 Diabetes Mellitus: Last Diabetic eye exam was on: Almost 2 years, has an appointment this month Last Podiatry exam was on: Patient does not see a Director Pharmacy Services Most recent HbA1c: 5.7% 06/27/2025 Random Glucose: 107 mg/dL Applications Processor Required: No Accompanied by: Self / Same As Patient Allergies codeine (CODEINE) Allergy (Intermediate, Verified 06/27/25 09:04) NAUSEA & VOMITING erythromycin base (ERYTHROMYCIN BASE) Allergy (Intermediate, Verified 06/27/25 09:04) NAUSEA & VOMITING Sulfa (Sulfonamide Antibiotics) (SULFA (SULFONAMIDE ANTIBIOTICS)) Allergy (Intermediate, Verified 06/27/25 09:04) HIVES Medication List - Last Reconciled 06/27/25 by ELROY Castaneda alcohol swabs (Alcohol Prep Pads) 1 pad topical QID anastrozole (Arimidex) 1 mg PO DAILY atorvastatin 20 mg PO BEDTIME blood sugar diagnostic (FreeStyle Lite Strips) Test four times a day or as directed. blood-glucose meter (FreeStyle Lite Meter kit) As Directed blood-glucose sensor (Dexcom G7 Sensor device) As directed every ten days cholecalciferol (vitamin D3) (Vitamin D3) 125 mcg PO DAILY hydroxyzine pamoate 25 mg PO BEDTIME PRN insulin glargine (Lantus Solostar U-100 Insulin) 5 units subcut BEDTIME lancets (FreeStyle Lancets) Test four times a day or as directed. metformin orally 2 times a day; pen needle, diabetic once daily sertraline 150 mg PO DAILY trazodone 200 mg PO BEDTIME PRN HPI Comments Details: 64-year-old female with type 2 diabetes presents for follow up. She was hospitalized September with glucose in the 600 range and TEOFILO which resolved. PCP is Aleyda Garcia PA-C. Family history of type 2 diabetes in her brother. A1c in September was 9.9%. A1c 5.7% today. Reviewed Dexcom data for the past 2 weeks G IN 6.1% High 3% In range 97% Low 0% My interpretation is she has excellent glycemic control. Was initially started on treatment with Lantus and metformin. She had significant GERD and esophageal surgery (Shireen fundoplication) in the past so she was thought not to be a good candidate for GLP 1. She would like to decrease or get off insulin if possible because she does find it difficult to lose weight. She is doing fine with her metformin and denies GI upset. Current regimen: Lantus 15 units daily and metformin 500 mg twice daily. Patient endorses hypoglycemia overnight about once per month. Treats with candy. Complications: None She was treated for breast cancer in 2019 and 2023. Patient says she is doing well. Hyperlipidemia is treated with atorvastatin by her primary care provider. Patient says she had cholesterol checked recently. No hypertension. She scheduled her eye exam. ROS: Constitutional: No fevers or chills or unexplained weight loss. Eyes: No vision changes Gastrointestinal: No anorexia, nausea, vomiting or diarrhea. No abdominal pain Neurologic: No dizziness, syncop Skin: No wounds or ulcers Endocrine: No cold or heat intolerance. No polyuria or polydipsia. Physical exam: Constitutional: Alert, in no distress. Neck: Supple, Full range of motion. No lymphadenopathy. No palpable thyroid masses. Respiratory: Clear to auscultation. Cardiovascular: S1 S2 regular. No murmurs Psychiatric: Normal mood and affect [facility] Medical History (Updated 06/27/25 @ 09:37 by ELROY Castaneda) Overweight Obesity Controlled type 2 diabetes mellitus Hiatal hernia Arthritis Pre-diabetes History of radiation therapy Ductal carcinoma in situ (DCIS) of left breast Depression Hypercholesterolemia COPD (chronic obstructive pulmonary disease) Surgical History History of lumpectomy of right breast (04/11/24) Hx of abdominoplasty Hx of excision of mass H/O colonoscopy History of lumpectomy of left breast Status post laparoscopic Shireen fundoplication (~08/2009) Family History Mother History of breast cancer Brother Sweat gland carcinoma Social History Household Members: Significant Other Housing: House Are you a primary health care manager to a significant other at home: No Alcohol intake: current Alcohol intake frequency: 0-2 drinks per day Alcohol type: wine Patient Tobacco Use Status: Former Tobacco user Tobacco use type: Cigarette Cigarette Packs Per Day: 1 Years Smoked: 25 Substance Use Type: Marijuana service: No Current occupational status: retired Physical Exam Vital Signs: Last Vital Signs Pulse 86 06/27/25 09:04 BP 116/54 L 06/27/25 09:04 Pulse Ox 97 06/27/25 09:04 Oxygen Delivery Method Room Air 06/27/25 09:04 BMI result Body Mass Index 28.3 Office Procedures Glucose Monitoring Details Details: see HPI 94691 - Glucose monitoring, continuous-physician I&R Procedure code (CPT) selection complete Results AMB Hemoglobin A1c AMB Hemoglobin A1c 5.7 % Last Edit by PAULA Archibald on 06/27/25 09:19 Results Reviewed Results Reviewed: Laboratory Last Values Glucose (Clinic) 107 mg/dL (60-115) 06/27/25 09:09 Laboratory Tests 09/12/24 05/29/25 13:18 10:33 Creatinine 0.82 Estimated GFR > 60 AST 26 ALT 40 H Vitamin B12 378 Assessment & Plan Assessment & Plan (1) Controlled type 2 diabetes mellitus: Code(s): E11.9 - Type 2 diabetes mellitus without complications Category: Medical (2) Hypercholesterolemia: Code(s): E78.00 - Pure hypercholesterolemia, unspecified Category: Medical (3) Overweight: Code(s): E66.3 - Overweight Category: Medical Plan In summary this is a 64-year-old female with well-controlled type 2 diabetes. She does want to decrease or stop insulin if possible, and she wants to work on her weight. Lifestyle modifications reviewed. Trial increase metformin to a 1000 mg in the morning and continue 500 mg in the evening and decrease Lantus to 5 units nightly. If you get stomach upset, please go back to Lantus 15 units daily and Metformin 500 mg twice daily. Call the office. If blood sugars are going above 180 after meals or over 130 in the morning when fasting, increase Lantus up to 8 units. If you have low sugars after increasing Metformin and reducing insulin, stop Lantus. Please return to the lab in 2 weeks after making this change to check b12, kidney function and a urine sample for microalbumin. If you experience low blood sugar (under 70), treat this by eating a chewable fruit candy like skittles or jelly beans (about 8 pieces), 4 ounces (1/2 cup) of fruit juice (not diet), 1 tablespoon of honey or 4 glucose tablets. If your blood sugar is under 50, take double the amount of one of the above. Recheck your blood sugar in 15 minutes. Follow up in 1 month for type 2 diabetes to review medication changes. Orders: Orders AMB Hemoglobin A1c Today ELROY Castaneda E11.9 - Type 2 diabetes mellitus without complications Microalbumin, Random (w Creat) Today ELROY Castaneda E11.9 - Type 2 diabetes mellitus without complications Creatinine Today ELROY Castaneda E11.9 - Type 2 diabetes mellitus without complications Vitamin B12 Today ELROY Castaneda Z91.89 - Other specified personal risk factors, not elsewhere classified AMB Glucose Monitoring Today ELROY Castaneda E11.9 - Type 2 diabetes mellitus without complications Medications: Changed From metformin 500 mg PO BID 180 tabs 0RF To metformin orally 2 times a day; Angelito Jaime MD From insulin glargine (Lantus Solostar U-100 Insulin) 15 units (0.15 mL) subcut BEDTIME 30 days 6 mL 11RF To insulin glargine (Lantus Solostar U-100 Insulin) 5 units subcut BEDTIME Amira Lowery NP Patient Instructions: Reduce Lantus to 5 units nightly when you increase Metformin to 1000 mg in the morning and continue 500 mg in the evening. If you get stomach upset, please go back to Lantus 15 units daily and Metformin 500 mg twice daily. Call the office. If blood sugars are going above 180 after meals or over 130 in the morning when fasting, increase Lantus up to 8 units. If you have low sugars after increasing Metformin and reducing insulin, stop Lantus. Please return to the lab in 2 weeks after making this change to check b12, kidney function and a urine sample. If you experience low blood sugar (under 70), treat this by eating a chewable fruit candy like skittles or jelly beans (about 8 pieces), 4 ounces (1/2 cup) of fruit juice (not diet), 1 tablespoon of honey or 4 glucose tablets. If your blood sugar is under 50, take double the amount of one of the above. Recheck your blood sugar in 15 minutes. Coding Level of Care Code Est Pt Level 4 (32626) Diagnoses Controlled type 2 diabetes mellitus E11.9 Hypercholesterolemia E78.00 Overweight E66.3 CPT Codes Details - CPT: 00251 - Glucose monitoring, continuous-physician I&R ([id number])
[2025-06-27 09:04] VITALS: BP 116/54; PULSE 86; O2SAT 97; BMI 28.3
[2025-06-27 09:14] LABS: Glucose, Whole Blood 107 mg/dL (60-115)
--- OUTSIDE RECORDS SUMMARY | 2025-06-27 09:21 | XMS_ITS | Patient Health Record ---
Author Organization [facility] Address [address] [place] [address] Care Team Providers Care Field Service Supervisor Name Role Phone Chichi (RETIRED) Hector CARSON Primary Care Provider Unavailable Angelito Leonard Unavailable [phone] Allergies Allergen (clinical drug ingredient) Drug/Non Drug Allergy documented on EMR Reaction Allergy Type Onset Date Status codeine Codeine Sulfate nausea/vomiting Drug Allergy Active erythromycin Erythromycin nausea/vomiting Drug Allergy Active Sulfa hives Drug Allergy Active Reason For Referral No Information Medications Medication SIG (Take, Route, Frequency, Duration) Notes Start Date End Date Status Zoloft 100 MG Tablet 1 tablet Orally Onc e a day Active Lunesta 3 MG Tablet 1 tablet immediately before bedtime Orally Once a day Active ALPRAZolam 0.5 MG Tablet 1 tablet Orally Three times a day Active Colyte w Flavor Packs 240 GM Solution Reconstituted as directed Orally as directed; Duration: 1 day(s) 03/13/2014 Active Lotemax 0.5 % Suspension 1 drop into aff ected eye Ophthalmic Four times a day Active Restasis 0.05 % Emulsion 1 into affected eye Ophthalmic Twice a day Active Fluticasone Propionate 50 MCG/ACT Suspension 1 spray in each nostril Nasally Once a day Active Flonase 50 MCG/ACT Suspension 1 spray in each nostril Nasally Once a day Active Prempro 0.3-1.5 MG Tablet 1 tablet Orall y Once a day Active Capsaicin APR 0.025 % Cream 1 applicatio n to affected area Externally Three times a day Active Social History Social History Additional Details Category Social Info Options Details Miscellaneous: Marital status: single 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 Section Notes: Smoker; 2 glasses of red win e per day Problems Problem Type SNOMED Code ICD Code Onset Dates Problem Status W/U Status Risk Notes Problem Blood in stool (135220558) Blood in stool (578.1) Active confirmed Plan Of Treatment Future Test Test Name Order Date COLONOSCOPY 03/13/2014 Insurance Providers Payer Name Payer Address Payer Phone Subscriber Number Group Number Insured Name Patient Relationship to Insured Coverage Start Date Coverage End Date [facility] [address] [place] [address] [phone] [id number] FALGUNI BROWN Self - patient is the insured Medical (General) History Medical History History ICD Code asthma - mild--flares up with a respirat ory infection GERD--s/p lap Shireen at [facility] by Dr Hermann brody in the --good relief insomnia depression anxiety fibrocystic breast disease severe conjunctivitis with temporary los s of vision Denies PR,DM,CVA,renal disease Surgical History Surgery Date(Month/Year) Breast vtlmra-fopr-ymaave Abdominoplasty Lap Shireen fundoplication at [facility] with Dr. Maldonado
--- OUTSIDE RECORDS SUMMARY | 2025-06-27 09:21 | XMS_ITS | Clinical Summary ---
Author Organization [facility] Address [address] [place] [phone] Phone Care Team Providers Care School Psychologist Name Role Phone Hector Cadet MD Primary Care Provider [phone] Allergies Active Allergy Reactions Criticality Noted Date [...] Cancer Staging:Pathologic:Stage IA(pT1b, pN0, cM0, G1, ER+, CA-, HER2-, Oncotype DX score: 19) - Signed [...] History Medical History Date Comments Breast cancer (CMS/[facility] V24, CMS/[facility] V28) S/P laparoscopic fundoplication Shingles H/O abdominoplasty COPD (chronic obstructive pu lmonary disease) ([facility] V24, [facility] V28) Invasive ductal carcinoma of right breast (CMS/[facility] V24, [facility] V28) 05/23/2024 Family History Medical History Relation [...] Last Done Comments Breast Cancer Screening 1962 Colorectal Cancer Screening: Colonoscopy 1962 DTaP,Tdap,and Td Vaccines (1 - Tdap) 1981 Pneumococcal Vaccine: 50+ Years (1 of 2 - PCV) 1981 Zoster Vaccines (1 of 2) 1981 Cervical Cancer Screening: Pap Smear 10/08/1983 RSV Immunization Adult Patients (1 - Risk 50-74 years 1-dose series) 2012 Cholesterol Screening (Lipid Panel) 05/13/2024 HIV Screening 05/13/2024 Hepatitis C Screening 05/13/2024 Social Influencers of Health Screening 05/13/2024 Depression Screening 07/10/2024 COVID-19 Vaccine ( season) 2025 04/03/2024, 05/12/2023, 03/29/2022, Additional history exists Influenza [...] patient's age to complete this topic Insurance [employer] Care Teams School Psychologist Relationship Specialty Start Date End Date Hector Cadet MD [address] [place], [place] [address]angie MD PCP - General Internal Medicine 05/23/24
--- OUTSIDE RECORDS SUMMARY | 2025-06-27 09:21 | XMS_ITS ---
Author Organization [facility] Address [address] [place] [phone] Phone Care Team Providers Care Tube Drawing Supervisor Name Role Phone Hector Cadet MD Primary Care Provider [phone] Active Problems Problem Noted Date Diagnosed Date Malignant neoplasm of upper- outer quadrant of right breast in female, estrogen receptor positive 05/29/2024 Breast cancer of upper-outer quadrant of right female breast 05/23/2024 Cancer Staging:Pathologic:Stage IA(pT1b, pN0, cM0, G1, ER+, [place]-, HER2-, Oncotype DX score: 19) - Signed by Claudia Silverio MD on 05/29/2024 Arthritis 05/23/2024 COPD (chronic obstructive pulmonary disease) Depression 05/23/2024 Ductal carcinoma in situ (DCIS) of left breast 1 07/23/2023 Hiatal hernia 05/23/2024 History of radiation therapy 05/23/2024 Hypercholesterolemia 05/23/2024 Pre-diabetes 05/23/2024 Current Treatment and Therapy Plans No current plan information found. Past Treatment and Therapy Plans No past plan information found. Current Radiation Episodes * 3D [employer] HOC[employer] COACH: Right BreastOverview* First Treatment Date Latest Treatment Date Treatment Site Technique Goal Episode Provider 06/24/2024 07/23/2024 Right Breast 3D [employer] HOC[employer] COACH Curative Corinne Silverio MD * Linked Problems Treatment Courses* Course 2 06/24/2024 - 07/23/2024 Treatment Sites Treatment Period Fraction Dose Fractions Total Dose Right Breast Boost 07/18/2024 - 07/23/2024 250 / 250 cGy / 1,000 / 1,000 cGy Right Breast 06/24/2024 - 07/17/2024 267 / 267 cGy 4,272 / 4,272 cGy
== END 2025-06-27 09:32 | disposition home or self-care (01) ==
PROVIDERS: PCP Internal Medicine; Visit Provider Physician Assistant Medical
DX: E11.9 Type 2 diabetes mellitus without complications (principal); E78.00 Pure hypercholesterolemia, unspecified; E66.3 Overweight

== ENCOUNTER → 2025-06-27 08:58 | Outpatient (BNVA) | payer OTHER, SELFPAY | PROVIDERS: PCP Internal Medicine; Visit Provider Physician Assistant Medical | DX: E11.9 Type 2 diabetes mellitus without complications (principal); E78.00 Pure hypercholesterolemia, unspecified; E66.3 Overweight; Z79.4 Long term (current) use of insulin; Z79.84 Long term (current) use of oral hypoglycemic drugs; Z68.28 Body mass index [BMI] 28.0-28.9, adult | CPT/HCPCS: 82947; 83036; 99212 ==